=== PATIENT | male | born 1960 | race Caucasian/White ===

== ENCOUNTER 2018-02-03 09:59 | Emergency (ER) | payer OTHER ==
[~2018-02-03] VITALS: Ht 175.3 cm; Wt 79.4 kg
[~2018-02-03 09:59] MED LIST: IBUP600 PO
[2018-02-03] MEDS ORDERED: IBUP800 PO (10:41)
[2018-02-03] MEDS ORDERED: Zofran Odt4 MG SL (10:41)
[2018-02-03] MEDS ORDERED: Norco 5-325 Ta1 EACH PO (10:41)
== END 2018-02-03 11:34 | disposition home or self-care (01) ==
LOC: ER 09:59
DX: S83.015A Lateral dislocation of left patella, initial encounter (principal); W17.81XA Fall down embankment (hill), initial encounter; Y93.89 Activity, other specified; Y92.828 Other wilderness area as the place of occurrence of the external cause
CPT/HCPCS: 73562-LT; J2405; J3010

== ENCOUNTER 2018-11-30 04:22 | Inpatient (IN) | payer OTHER ==
[~2018-11-30] VITALS: Ht 175.3 cm; Wt 74.1 kg
[~2018-11-30 04:22] MED LIST changes: +IBUP800 PO; +Norco 5-325 Ta1 EACH PO; +Zofran Odt4 MG SL
[2018-11-30 04:47] LABS: Source, Urine Clean Catch
[2018-11-30 04:53] LABS: Bilirubin, Urine Neg (Neg); Blood, Urine Neg (Neg); Glucose Qualitative, Urine 1+ (Neg); Ketones, Urine 3+ (Neg); Leukocyte Esterase, Urine Neg (Neg); Nitrite, Urine Neg (Neg); Protein, Urine Neg (Neg); Urobilinogen, Urine NORM (Normal)
[2018-11-30 05:01] LABS: Appearance, Urine Clear (Clear); Color, Urine Yellow (P-Yellow)
[2018-11-30 05:21] LABS: BASOPHILS ABSOLUTE AUTO 0.07 K/mm3 (0.00-0.23); BASOPHILS PERCENT AUTO 1 % (0-2); EOSINOPHILS PERCENT AUTO 1 % (0-6); Hemoglobin 12.4 g/dL (13.5-17.5); IMMATURE GRAN ABSOLUTE AUTO 0.05 K/mm3 (0.00-0.10); IMMATURE GRAN PERCENT AUTO 0 % (0-1); LYMPHOCYTES ABSOLUTE AUTO 1.18 K/mm3 (0.84-5.20); LYMPHOCYTES PERCENT AUTO 8 % (21-46); MONOCYTES ABSOLUTE AUTO 0.95 K/mm3 (0.16-1.47); MONOCYTES PERCENT AUTO 7 % (4-13); Mean Corpuscular HGB Conc 34.4 g/dL (31.5-36.5); Mean Corpuscular Volume 99 fL (80-100); Mean Platelet Volume 9.5 fL (9.1-12.4); NEUTROPHILS ABSOLUTE AUTO 11.82 K/mm3 (1.96-9.15); NEUTROPHILS PERCENT AUTO 83 % (41-73); Platelet Count 299 K/mm3 (150-400); RDW Coefficient Variation 14.2 % (11.7-14.2); RDW Standard Deviation 51.8 fL (35.1-46.3); Red Blood Cell Count 3.65 M/mm3 (4.30-5.90); White Blood Cell Count 14.17 K/mm3 (4.00-11.30)
[2018-11-30 05:55] LABS: Alanine Aminotransfer (ALT/SGP 12 U/L (12-78); Albumin, Blood 3.8 g/dL (3.4-5.0); Alk Phos 66 U/L (50-136); Anion Gap 12 mmol/L (6-16); Aspartate Aminotrans (AST/SGOT 12 U/L (12-37); Bilirubin, Total 0.3 mg/dL (0.1-1.0); Blood Urea Nitrogen 7 mg/dL (8-24); Bun/Creatinine Ratio 14.6 (12.0-20.0); CO2, Blood 24 mmol/L (21-32); Calcium, Blood 8.8 mg/dL (8.5-10.1); Chloride, Blood 98 mmol/L (98-108); Creatinine, Blood 0.48 mg/dL (0.60-1.20); Ethanol (Alcohol), Blood, Med <3 mg/dL; Globulin, Blood 3.9 g/dL (2.2-4.0); Glomerular Filtration Rate >60 (60-); Glucose, Blood 168 mg/dL (70-99); Potassium, Blood 3.3 mmol/L (3.5-5.5); Sodium, Blood 134 mmol/L (136-145); Total Protein, Blood 7.7 g/dL (6.4-8.2); Troponin I <0.015 ng/mL (0.000-0.040)
--- NOTE | 2018-11-30 12:06 | NUR ---
1010 PT ADMITTED TO MEDICAL FLOOR VIA GURNEY, TRANSFERED INDEPENDENTLY TO BED WITHOUT ISSUE. PT REPORTS PAIN TO RUQ ABD 02/11, PAIN MANAGED WELL WITH MORPHINE 2.5MG IV. DENIES SOB, N/V. PT EDUCATED ON TX OF PANCREATITIS. CONT BIOX PLACED BY RT. NO NEW CHANGES.
--- NOTE | 2018-11-30 16:11 | NUR ---
SHIFT SUMMARY. A&OX4, SBA TO BATHROOM SECONDARY TO IV LINES AND NARCOTICS. PT IS AWARE OF LIMITATIONS AND CALLS APPROPRIATLY. PT C/O PAIN TO LUQ ABD, PAIN MANAGED WELL WITH MORPHINE 2.5MG IV TWICE SINCE ADMISSION. DENIES SOB, N/V. PT IS AWARE AND AGREES WITH CURRENT TREATMENT PLAN. NO NEW CHANGES.
--- NOTE | 2018-12-01 00:09 | NUR ---
PT BLOOD PRESSURE AT 1999 WAS 161/100. pT WAS GIVEN HIS METROPOLOL AND 10 MG HYDRAZALINE. Blood pressure at 0 was 137/84 with a pulse of 86. Pt also given 5 mg morphine for severe avdominal pain with some relief.
--- NOTE | 2018-12-01 04:39 | NUR ---
Shift summary: Pt having a lot of abdominal pain secondary to pancreatitis. Pt NPO. Pt given 5 mg morphine q 4 hours during the night with only moderate relief. Pt c/o nausea this am- pt given 4 mg zofran with good relief. Pt now appears to be resting comfortably. Blood pressure at midnight was 137/84 after getting morphine, lopressor and hydrazaline. Blood pressure this am was 160/90 but pt was also in pain.
[2018-12-01 05:37] LABS: BASOPHILS ABSOLUTE AUTO 0.04 K/mm3 (0.00-0.23); BASOPHILS PERCENT AUTO 0 % (0-2); EOSINOPHILS ABSOLUTE AUTO 0.06 K/mm3 (0.00-0.68); EOSINOPHILS PERCENT AUTO 1 % (0-6); Hematocrit 38.4 % (37.0-53.0); Hemoglobin 13.1 g/dL (13.5-17.5); IMMATURE GRAN ABSOLUTE AUTO 0.05 K/mm3 (0.00-0.10); IMMATURE GRAN PERCENT AUTO 0 % (0-1); LYMPHOCYTES ABSOLUTE AUTO 1.08 K/mm3 (0.84-5.20); LYMPHOCYTES PERCENT AUTO 9 % (21-46); MONOCYTES ABSOLUTE AUTO 1.23 K/mm3 (0.16-1.47); MONOCYTES PERCENT AUTO 11 % (4-13); Mean Corpuscular HGB 34.6 pg (26.0-34.0); Mean Corpuscular HGB Conc 34.1 g/dL (31.5-36.5); Mean Corpuscular Volume 101 fL (80-100); Mean Platelet Volume 9.8 fL (9.1-12.4); NEUTROPHILS ABSOLUTE AUTO 9.04 K/mm3 (1.96-9.15); NEUTROPHILS PERCENT AUTO 79 % (41-73); Platelet Count 265 K/mm3 (150-400); RDW Coefficient Variation 14.7 % (11.7-14.2); RDW Standard Deviation 54.8 fL (35.1-46.3); Red Blood Cell Count 3.79 M/mm3 (4.30-5.90)
[2018-12-01 06:08] LABS: Magnesium, Blood 2.3 mg/dL (1.6-2.4)
[2018-12-01 06:13] LABS: Alanine Aminotransfer (ALT/SGP 16 U/L (12-78); Albumin, Blood 3.5 g/dL (3.4-5.0); Albumin/Globulin Ratio 0.9 (0.8-1.8); Alk Phos 69 U/L (50-136); Anion Gap 8 mmol/L (6-16); Aspartate Aminotrans (AST/SGOT 13 U/L (12-37); Bilirubin, Total 0.5 mg/dL (0.1-1.0); Blood Urea Nitrogen 4 mg/dL (8-24); Bun/Creatinine Ratio 8.6 (12.0-20.0); CO2, Blood 22 mmol/L (21-32); Calcium, Blood 8.7 mg/dL (8.5-10.1); Chloride, Blood 106 mmol/L (98-108); Creatinine, Blood 0.47 mg/dL (0.60-1.20); Globulin, Blood 3.8 g/dL (2.2-4.0); Glomerular Filtration Rate >60 (60-); Glucose, Blood 103 mg/dL (70-99); Potassium, Blood 3.9 mmol/L (3.5-5.5); Sodium, Blood 136 mmol/L (136-145); Total Protein, Blood 7.3 g/dL (6.4-8.2)
--- NOTE | 2018-12-01 13:17 | NUR ---
PT IS ALERT AND ORIENTED AND COOPERATIVE WITH CARE. HE HAS COMPLAINED TWICE OF ABDOMINAL PAIN 7/, TREATED PER EMAR. PATIENT RECIEVED A SHOWER THIS MORNING. WILL CONTINUE TO MONITOR.
--- NOTE | 2018-12-01 18:16 | NUR ---
THE PATIENT GOT THE OKAY FROM DR. THOMAS TO EAT ICE CHIPS. HE HAS NORMAL SALINE RUNNING AT 150 ML/HR. HE HAS BEEN USING THE URINAL IN BED. NO COMPLAINTS OF NAUSEA THIS AFTERNOON. HE WAS ORDERED DILAUDID 1MG Q3H PRN FOR PAIN. NO ACUTE CHANGES, WILL CONTINUE TO MONITOR.
--- NOTE | 2018-12-02 04:27 | NUR ---
SUMMARY: NO ACUTE CHANGE TONIGHT. VSS. PT TOLERATING ICE CHIPS, HAS DENIED, N/V. REPORTS 6/10 PAIN CONSISTANTLY. 0.5-1MG DILAUDID GIVEN PRN. PT USING CALL LIGHT NO SAFETY ISSUES AT THIS TIME. WILL REPORT TO DAY RN
[2018-12-02 05:13] LABS: BASOPHILS ABSOLUTE AUTO 0.05 K/mm3 (0.00-0.23); BASOPHILS PERCENT AUTO 1 % (0-2); EOSINOPHILS ABSOLUTE AUTO 0.15 K/mm3 (0.00-0.68); EOSINOPHILS PERCENT AUTO 2 % (0-6); Hematocrit 33.3 % (37.0-53.0); Hemoglobin 11.2 g/dL (13.5-17.5); IMMATURE GRAN ABSOLUTE AUTO 0.02 K/mm3 (0.00-0.10); IMMATURE GRAN PERCENT AUTO 0 % (0-1); LYMPHOCYTES ABSOLUTE AUTO 1.18 K/mm3 (0.84-5.20); LYMPHOCYTES PERCENT AUTO 13 % (21-46); MONOCYTES PERCENT AUTO 13 % (4-13); Mean Corpuscular HGB 34.3 pg (26.0-34.0); Mean Corpuscular HGB Conc 33.6 g/dL (31.5-36.5); Mean Corpuscular Volume 102 fL (80-100); Mean Platelet Volume 10.1 fL (9.1-12.4); NEUTROPHILS ABSOLUTE AUTO 6.48 K/mm3 (1.96-9.15); NEUTROPHILS PERCENT AUTO 71 % (41-73); Platelet Count 213 K/mm3 (150-400); RDW Coefficient Variation 14.6 % (11.7-14.2); RDW Standard Deviation 54.6 fL (35.1-46.3); Red Blood Cell Count 3.27 M/mm3 (4.30-5.90); White Blood Cell Count 9.08 K/mm3 (4.00-11.30)
[2018-12-02 05:53] LABS: Alanine Aminotransfer (ALT/SGP 8 U/L (12-78); Albumin, Blood 2.8 g/dL (3.4-5.0); Albumin/Globulin Ratio 0.7 (0.8-1.8); Alk Phos 57 U/L (50-136); Anion Gap 6 mmol/L (6-16); Aspartate Aminotrans (AST/SGOT 7 U/L (12-37); Bilirubin, Total 0.4 mg/dL (0.1-1.0); Blood Urea Nitrogen 6 mg/dL (8-24); Bun/Creatinine Ratio 10.4 (12.0-20.0); CO2, Blood 25 mmol/L (21-32); Calcium, Blood 8.3 mg/dL (8.5-10.1); Chloride, Blood 107 mmol/L (98-108); Creatinine, Blood 0.58 mg/dL (0.60-1.20); Globulin, Blood 3.8 g/dL (2.2-4.0); Glomerular Filtration Rate >60 (60-); Glucose, Blood 86 mg/dL (70-99); Potassium, Blood 3.7 mmol/L (3.5-5.5); Sodium, Blood 138 mmol/L (136-145); Total Protein, Blood 6.6 g/dL (6.4-8.2)
--- NOTE | 2018-12-02 17:52 | NUR ---
HE HAS TAKEN DILAUDID 0.5 MG X3 TODAY FOR ABD PAIN. NO NAUSEA. HE HAS HAD SMALL AMT OF ICE CHIPS. HE HAS WALKED OUTSIDE X2 FOR A CIGARETTE TODAY. IT DID NOT MAKE HIM MORE PAINFUL OR NAUSEATE HIM. VSS. HE IS VERY PLEASANT AND TALKATIVE. HE UNDERSTANDS HE WILL HAVE ANOTHER CT SCAN TOMORROW.
--- NOTE | 2018-12-03 03:05 | NUR ---
PT BEGAN ORAL CONTRAST AT 0300 PER RADIOLOGIST INSTRUCTIONS AT [address] W/CONTRAST. PT AWARE TO DRINK NEXT AMOUNT AT 0430 AND WILL COMPLETE SOLUTION BY 0630 SCAN.
--- NOTE | 2018-12-03 04:48 | NUR ---
SUMMARY: A/OX4, INDEPENDENT AND SPECIFIES NEEDS. PT DENIED COMPLAINTS OTHER THEN ABDO PAIN. DILUADID 0.5MG IV PRN RECIEVED X3 DOSES FOR TOLERABLE CONTROL BUT PT STATES PAIN NEVER GOES AWAY ENTIRELY. HE DENIES NAUSEA AND IS DRINKING ORAL CONTRAST PER RADIOLOGY INSTRUCTION FOR AM ABDO CT W/CONTRAST. HE'S BEEN NPO EXCEPT ICE AND TOLERATING WELL W/CLINIMIX INFUSING. NO ACUTE CHANGES, VSS AND AFEBRILE. WILL MONITOR AND REPORT TO DAY RN.
[2018-12-03 05:01] LABS: BASOPHILS ABSOLUTE AUTO 0.05 K/mm3 (0.00-0.23); BASOPHILS PERCENT AUTO 1 % (0-2); EOSINOPHILS ABSOLUTE AUTO 0.13 K/mm3 (0.00-0.68); EOSINOPHILS PERCENT AUTO 2 % (0-6); Hematocrit 30.9 % (37.0-53.0); Hemoglobin 10.4 g/dL (13.5-17.5); IMMATURE GRAN ABSOLUTE AUTO 0.01 K/mm3 (0.00-0.10); IMMATURE GRAN PERCENT AUTO 0 % (0-1); LYMPHOCYTES ABSOLUTE AUTO 1.26 K/mm3 (0.84-5.20); LYMPHOCYTES PERCENT AUTO 18 % (21-46); MONOCYTES ABSOLUTE AUTO 0.93 K/mm3 (0.16-1.47); MONOCYTES PERCENT AUTO 13 % (4-13); Mean Corpuscular HGB 34.9 pg (26.0-34.0); Mean Corpuscular HGB Conc 33.7 g/dL (31.5-36.5); Mean Corpuscular Volume 104 fL (80-100); NEUTROPHILS ABSOLUTE AUTO 4.81 K/mm3 (1.96-9.15); NEUTROPHILS PERCENT AUTO 67 % (41-73); Platelet Count 187 K/mm3 (150-400); RDW Coefficient Variation 14.2 % (11.7-14.2); RDW Standard Deviation 54.2 fL (35.1-46.3); Red Blood Cell Count 2.98 M/mm3 (4.30-5.90); White Blood Cell Count 7.19 K/mm3 (4.00-11.30)
[2018-12-03 05:28] LABS: Alanine Aminotransfer (ALT/SGP 8 U/L (12-78); Albumin, Blood 2.7 g/dL (3.4-5.0); Albumin/Globulin Ratio 0.7 (0.8-1.8); Alk Phos 56 U/L (50-136); Anion Gap 7 mmol/L (6-16); Aspartate Aminotrans (AST/SGOT 8 U/L (12-37); Bilirubin, Total 0.4 mg/dL (0.1-1.0); Blood Urea Nitrogen 8 mg/dL (8-24); Bun/Creatinine Ratio 14.3 (12.0-20.0); CO2, Blood 26 mmol/L (21-32); Calcium, Blood 8.4 mg/dL (8.5-10.1); Chloride, Blood 103 mmol/L (98-108); Creatinine, Blood 0.56 mg/dL (0.60-1.20); Globulin, Blood 3.7 g/dL (2.2-4.0); Glomerular Filtration Rate >60 (60-); Glucose, Blood 98 mg/dL (70-99); Potassium, Blood 3.6 mmol/L (3.5-5.5); Sodium, Blood 136 mmol/L (136-145); Total Protein, Blood 6.4 g/dL (6.4-8.2)
--- NOTE | 2018-12-03 18:23 | NUR ---
PATIENT IS A/O AND INDEPENDENT IN THE ROOM . HE GOES OUT TO SMOKE 2X A SHIFT. HE IS PLEASANT AND COOPERATIVE WITH ALL CARES. SINCE PAIN MEDS HAVE BEEN SWITCHED HE HAS NOT REQUESTED MUCH PAIN RELIEF. IV DC AND REMOVED. PATIENT HAS TOLERATED FOOD WELL THIS SHIFT SINCE BEING TAKEN OFF NPO STATUS.
--- NOTE | 2018-12-04 04:00 | NUR ---
PT C/O MILD BUT NAGGING NAUSEA BUT NO IV ACCESS SO RX'D ZOFRAN PO. MED RECIEVED AND PT REPORTED EXCELLENT RELIEF.
--- NOTE | 2018-12-04 05:15 | NUR ---
SUMMARY: A/OX4, INDEPENDENT AND SPECIFIES NEEDS. HE CONT'S TO HAVE ABDO PAIN W/PERCOCET 1 TAB X2 DOSES RECIEVED FOR 4/10 PAIN CONTROL WHICH PT REPORTS IS "TOLERABLE AND GOOD IT GETS". HE'S BEEN TOLERATING HIS REGULAR DIET BUT DID REPORT MILD NAGGING NAUSEA THIS AM. PO ZOFRAN RECIEVED FOR GOOD EFFECT AND PROTONIX WAS GIVEN EARLY PER PT REQUEST. VSS/AFEBRILE AND NO ACUTE CHANGES. HE IS PLEASANT AND COOPERATIVE W/CARE AND HOPING TO GO HOME TODAY, POSSIBLE D/C PENDING. WILL MONITOR AND REPORT TO DAY RN.
[2018-12-04 05:50] LABS: Magnesium, Blood 2.3 mg/dL (1.6-2.4)
[2018-12-04 05:53] LABS: Anion Gap 9 mmol/L (6-16); Blood Urea Nitrogen 8 mg/dL (8-24); CO2, Blood 25 mmol/L (21-32); Calcium, Blood 8.4 mg/dL (8.5-10.1); Chloride, Blood 104 mmol/L (98-108); Creatinine, Blood 0.57 mg/dL (0.60-1.20); Glomerular Filtration Rate >60 (60-); Glucose, Blood 96 mg/dL (70-99); Potassium, Blood 3.7 mmol/L (3.5-5.5); Sodium, Blood 138 mmol/L (136-145)
--- NOTE | 2018-12-04 06:01 | NUR ---
LIPASE CONT'S TRENDING DOWNWARD, NOW 511.
[2018-12-04] MEDS ORDERED: Percocet 5-3251 EACH PO (11:19)
[2018-12-04] MEDS ORDERED: Lopressor 25 mg25 MG PO (11:19)
[2018-12-04] MEDS ORDERED: ONDA4 PO ×2 (11:30→11:31)
--- NOTE | 2018-12-04 11:48 | NUR ---
PT DISCHARGED TO HOME PER AT 1130. SCRIPTS SENT TO [facility] TO FOLLOW UP WITH [facility].
== END 2018-12-04 11:35 | disposition home or self-care (01) | DRG 439 ==
LOC: ER 04:22 → MEDS 09:02 → ENPENDDIS 12-04 11:00 → MEDS 12-04 11:35
PROVIDERS: Emergency Medicine; Hospitalist; ADMIT Internal Medicine
DX: K85.90 Acute pancreatitis without necrosis or infection, unspecified (principal); K86.3 Pseudocyst of pancreas; K85.20 Alcohol induced acute pancreatitis without necrosis or infection; K86.0 Alcohol-induced chronic pancreatitis; F10.20 Alcohol dependence, uncomplicated; E87.6 Hypokalemia; F17.210 Nicotine dependence, cigarettes, uncomplicated
CPT/HCPCS: 36415; 74177; 80048; 80053; 81003; 83690; 83735; 84484; 85025; 85651; 93005; 93010; 94762; 96361; 96374-59; 96375; 96376; 99285-25; C9113; G0480; J0360; J0696; J1170; J2060; J2270; J2405; J3010; J3475; J7030; J7042; Q9967

== ENCOUNTER 2018-12-12 14:32 | Emergency (ER) | payer OTHER ==
[~2018-12-12] VITALS: Ht 172.7 cm; Wt 77.1 kg
[~2018-12-12 14:32] MED LIST changes: +Lopressor 25 mg25 MG PO; +ONDA4 PO; +Percocet 5-3251 EACH PO
[2018-12-12 15:19] LABS: BASOPHILS ABSOLUTE AUTO 0.05 K/mm3 (0.00-0.23); BASOPHILS PERCENT AUTO 0 % (0-2); EOSINOPHILS ABSOLUTE AUTO 0.11 K/mm3 (0.00-0.68); EOSINOPHILS PERCENT AUTO 1 % (0-6); Hematocrit 26.6 % (37.0-53.0); Hemoglobin 8.9 g/dL (13.5-17.5); IMMATURE GRAN ABSOLUTE AUTO 0.29 K/mm3 (0.00-0.10); IMMATURE GRAN PERCENT AUTO 2 % (0-1); LYMPHOCYTES ABSOLUTE AUTO 2.25 K/mm3 (0.84-5.20); LYMPHOCYTES PERCENT AUTO 12 % (21-46); MONOCYTES PERCENT AUTO 6 % (4-13); Mean Corpuscular HGB 34.4 pg (26.0-34.0); Mean Corpuscular HGB Conc 33.5 g/dL (31.5-36.5); Mean Corpuscular Volume 103 fL (80-100); Mean Platelet Volume 9.8 fL (9.1-12.4); NEUTROPHILS ABSOLUTE AUTO 15.52 K/mm3 (1.96-9.15); NEUTROPHILS PERCENT AUTO 80 % (41-73); Platelet Count 628 K/mm3 (150-400); RDW Coefficient Variation 14.7 % (11.7-14.2); RDW Standard Deviation 55.8 fL (35.1-46.3); Red Blood Cell Count 2.59 M/mm3 (4.30-5.90); White Blood Cell Count 19.42 K/mm3 (4.00-11.30)
[2018-12-12 15:44] LABS: Alanine Aminotransfer (ALT/SGP 9 U/L (12-78); Albumin, Blood 2.4 g/dL (3.4-5.0); Albumin/Globulin Ratio 0.6 (0.8-1.8); Alk Phos 77 U/L (50-136); Anion Gap 12 mmol/L (6-16); Aspartate Aminotrans (AST/SGOT 4 U/L (12-37); Bilirubin, Total 0.5 mg/dL (0.1-1.0); Blood Urea Nitrogen 9 mg/dL (8-24); Bun/Creatinine Ratio 14.7 (12.0-20.0); CO2, Blood 22 mmol/L (21-32); Calcium, Blood 8.1 mg/dL (8.5-10.1); Chloride, Blood 100 mmol/L (98-108); Creatinine, Blood 0.61 mg/dL (0.60-1.20); Globulin, Blood 3.8 g/dL (2.2-4.0); Glomerular Filtration Rate >60 (60-); Glucose, Blood 121 mg/dL (70-99); Potassium, Blood 3.9 mmol/L (3.5-5.5); Sodium, Blood 134 mmol/L (136-145); Total Protein, Blood 6.2 g/dL (6.4-8.2)
[2018-12-12 18:00] LABS: International Normalized Ratio 1.01; Prothrombin Time Results 10.7 Sec (9.7-11.5)
== END 2018-12-12 18:05 | disposition short-term general hospital (02) ==
LOC: ER 14:32
PROVIDERS: Emergency Medicine
DX: D73.5 Infarction of spleen (principal); K85.90 Acute pancreatitis without necrosis or infection, unspecified; D64.9 Anemia, unspecified; I10 Essential (primary) hypertension; F17.200 Nicotine dependence, unspecified, uncomplicated
CPT/HCPCS: 36415; 36430; 74177; 80053; 83605; 83690; 84484; 85025; 85610; 86850; 86900; 86901; 86923; 93005; 93010; 96361-59; 96365-59; 96375-59; 96376-59; 99285-25; J1170; J2405; J3010; J7030; J7040; P9016; P9035; P9059; Q9967

== ENCOUNTER 2019-09-03 21:01 | Inpatient (IN) | payer OTHER ==
[~2019-09-03] VITALS: Ht 175.3 cm; Wt 72.8 kg
[2019-09-03 21:55] LABS: Calcium, Ionized (POC) 0.97 mmol/L (1.10-1.46); Chloride (POC) 102 mmol/L (98-108); Creatinine (POC) 1.3 mg/dL (0.8-1.3); Glucose (ISTAT POC) 99 mg/dL (70-99); Hemoglobin (POC) 15.3 g/dL (13.5-17.5); Potassium (POC) 4.3 mmol/L (3.5-5.5); Sodium (POC) 138 mmol/L (135-148); Total CO2 (POC) 24 mmol/L (21-32)
[2019-09-03 22:03] LABS: BASOPHILS ABSOLUTE AUTO 0.08 K/mm3 (0.00-0.23); BASOPHILS PERCENT AUTO 1 % (0-2); EOSINOPHILS ABSOLUTE AUTO 0.13 K/mm3 (0.00-0.68); EOSINOPHILS PERCENT AUTO 2 % (0-6); Hematocrit 40.8 % (37.0-53.0); Hemoglobin 13.8 g/dL (13.5-17.5); IMMATURE GRAN ABSOLUTE AUTO 0.03 K/mm3 (0.00-0.10); IMMATURE GRAN PERCENT AUTO 0 % (0-1); LYMPHOCYTES ABSOLUTE AUTO 4.64 K/mm3 (0.84-5.20); LYMPHOCYTES PERCENT AUTO 52 % (21-46); MONOCYTES ABSOLUTE AUTO 0.57 K/mm3 (0.16-1.47); MONOCYTES PERCENT AUTO 6 % (4-13); Mean Corpuscular HGB 34.4 pg (26.0-34.0); Mean Corpuscular HGB Conc 33.8 g/dL (31.5-36.5); Mean Corpuscular Volume 102 fL (80-100); Mean Platelet Volume 9.1 fL (9.1-12.4); NEUTROPHILS ABSOLUTE AUTO 3.51 K/mm3 (1.96-9.15); NEUTROPHILS PERCENT AUTO 39 % (41-73); Platelet Count 470 K/mm3 (150-400); RDW Coefficient Variation 14.2 % (11.7-14.2); RDW Standard Deviation 53.5 fL (35.1-46.3); Red Blood Cell Count 4.01 M/mm3 (4.30-5.90); White Blood Cell Count 8.96 K/mm3 (4.00-11.30)
[2019-09-03 22:30] LABS: Alanine Aminotransfer (ALT/SGP 19 U/L (12-78); Albumin, Blood 3.7 g/dL (3.4-5.0); Alk Phos 72 U/L (50-136); Anion Gap 12 mmol/L (6-16); Aspartate Aminotrans (AST/SGOT 14 U/L (12-37); Bilirubin, Total 0.1 mg/dL (0.1-1.0); Blood Urea Nitrogen 5 mg/dL (8-24); Bun/Creatinine Ratio 8.3 (12.0-20.0); CO2, Blood 22 mmol/L (21-32); Chloride, Blood 106 mmol/L (98-108); Globulin, Blood 3.6 g/dL (2.2-4.0); Glomerular Filtration Rate >60 (60-); Glucose, Blood 95 mg/dL (70-99); Potassium, Blood 4.3 mmol/L (3.5-5.5); Sodium, Blood 140 mmol/L (136-145); Total Protein, Blood 7.3 g/dL (6.4-8.2); Troponin I <0.015 ng/mL (0.000-0.040)
[2019-09-03 22:35] LABS: Ethanol (Alcohol), Blood, Med 518 mg/dL
[2019-09-03 22:36] LABS: Acetaminophen, Random <2.0 ug/mL (10.0-30.0)
[2019-09-03 22:40] LABS: U Amphetamine Screen Not Detected; U Barbituate Screen Not Detected; U Benzodiazapine Screen Not Detected; U Buprenorphine Screen Not Detected; U Cannabinoids Screen DETECTED; U Cocaine Screen Not Detected; U Methadone Screen Not Detected; U Methamphetamine Screen Not Detected; U Opiates Screen Not Detected; U Oxycodone Screen Not Detected; U Phencyclidine Screen Not Detected; U Propoxyphene Screen Not Detected
[2019-09-03 23:30] LABS: Magnesium, Blood 2.2 mg/dL (1.6-2.4); Phosphorus, Blood 4.1 mg/dL (2.5-4.9)
[2019-09-03 23:42] LABS: PCO2 Arterial 47.6 mmHg (35-45); PO2 Arterial 75.6 mmHg (80-100)
[2019-09-03 23:43] LABS: pH Blood Arterial 7.26 (7.35-7.45)
--- NOTE | 2019-09-04 02:30 | NUR ---
PT TO ICU ROOM 8 FROM ED AT 2345. PT ARRIVES VENTILATED, SEDATED ON PROPFOL AND RECEIVING NS BOLUS. PT IS UNRESPONSIVE TO VERBAL OR PAINFUL STIMULI, COUGH PRESENT, NO GAG, PINPOINT UNRESPONSIVE PUPILS, AND HYPOTHERMIC WITH TEMP OF 95.4. MICHELA HUGGER PLACED ON PT UPON ARRIVAL TO INCREASE TEMP, PT HAS TEMP VIGIL TO MONITOR CORE TEMPERATURE. VENT SETTINGS AC 14/500/5/30%. OGT TO LIS, SMALL AMOUNT OF CLEAR FLUID SUCTIONED FROM OGT. PRECEDEX STARTED FOR SEDATION PT WAS BECOMING HYPOTENSIVE ON PROPOFOL. PT CONTINUES TO BE HYPOTENSIVE, ALL SEDATION PLACED ON STANDBY. CALL PLACED TO DR. RODRIGUEZ REGARDING PT'S CONTINUED HYPOTENSION DESPITE FLUID BOLUS, ORDER TO INFUSE ADDITIONAL 2L FLUID BOLUS. SEE FULL ADMISSION ASSESSMENT
[2019-09-04 03:31] LABS: Base Excess Venous -7.4 mmol/L; Bicarbonate Venous 18.9 mmol/L (24.0-30.0); PCO2 Venous 37.7 mmHg (38-42); PO2 Venous 132 mmHg (38-42); pH Blood Venous 7.31 (7.34-7.37)
--- NOTE | 2019-09-04 03:35 | NUR ---
PT RESPONDING TO FLUID BOLUS WITH IMPROVING BLOOD PRESSURES. PT TURNS HEAD TO SOUND AND FROWNS IN RESPONSE TO SUCTIONING AND STERNAL RUB. PT STILL FAILS TO FOLLOW COMMANDS. PRECEDEX RESTARTED AT 0.2 MCG/KG/HR D/T PT AGITATION. WILL CONTINUE TO CLOSELY MONITOR BLOOD PRESSURE RESPONSE TO PRECEDEX.
[2019-09-04 04:11] LABS: BASOPHILS ABSOLUTE AUTO 0.06 K/mm3 (0.00-0.23); BASOPHILS PERCENT AUTO 1 % (0-2); EOSINOPHILS ABSOLUTE AUTO 0.01 K/mm3 (0.00-0.68); EOSINOPHILS PERCENT AUTO 0 % (0-6); Hematocrit 33.5 % (37.0-53.0); Hemoglobin 10.8 g/dL (13.5-17.5); IMMATURE GRAN ABSOLUTE AUTO 0.04 K/mm3 (0.00-0.10); IMMATURE GRAN PERCENT AUTO 1 % (0-1); LYMPHOCYTES ABSOLUTE AUTO 3.14 K/mm3 (0.84-5.20); LYMPHOCYTES PERCENT AUTO 38 % (21-46); MONOCYTES ABSOLUTE AUTO 0.44 K/mm3 (0.16-1.47); MONOCYTES PERCENT AUTO 5 % (4-13); Mean Corpuscular HGB 33.8 pg (26.0-34.0); Mean Corpuscular HGB Conc 32.2 g/dL (31.5-36.5); Mean Platelet Volume 9.2 fL (9.1-12.4); NEUTROPHILS ABSOLUTE AUTO 4.51 K/mm3 (1.96-9.15); NEUTROPHILS PERCENT AUTO 55 % (41-73); Platelet Count 391 K/mm3 (150-400); RDW Coefficient Variation 14.6 % (11.7-14.2); RDW Standard Deviation 56.4 fL (35.1-46.3)
[2019-09-04 04:33] LABS: Mean Corpuscular Volume 105 fL (80-100)
--- NOTE | 2019-09-04 06:44 | NUR ---
SHIFT SUMMARY PT REMAINS INTUBATED WITH VENT SETTINGS AC 14/500/5/25%. PT RECEIVED TOTAL OF 5L NS BOLUS TO IMPROVE HYPOTENSION. PT MUCH MORE ALERT, TURNS HEAD TO SOUND, SQUEEZES HAND, AND TRIES TO MOUTH WORDS. PT INCREASINGLY AGITATED AND THRASHES HEAD BACK AND FORTH TRYING TO SELF-EXTUBATE. PT PULLS AGGRESSIVELY ON RESTRAINTS AND KICKS LEGS. CONTINUED ATTEMPTS TO SEDATE PT RESULT IN HYPOTENSION. PROPOFOL CURRENTLY INFUSING AT 10 MCG/KG/MIN AND PRECEDEX @0.4 MCG/KG/HR. 1200 ML CLEAR YELLOW URINARY OUTPUT. PT TEMP REGULATED, CURRENTLY 97.4, MICHELA HUGGER REMAINS OFF. PLEASE SEE PREVIOUS NOTES FROM THIS SHIFT. WILL REPORT TO DAYSHIFT NURSE
--- NOTE | 2019-09-04 07:20 | NUR ---
ASSUMED CARE AT 0700. REPORT FROM EUGENIA SHETTY. PT INTUBATED, DR RODRIGUEZ AT BEDSIDE. VENT SETTINGS CHANGED TO SPONTANEOUS 5/5 25%. PT OPENS EYES SPONTANEOUSLY, FOLLOWS DIRECTIONS. INTERMITTANTLY THRASHING HEAD BACK AND FORTH, ABLE TO REDIRECT. GAG, SWALLOW AND COUGH PRESENT. IVF INFUSING. PROPOFOL AND PRECEDEX ON STANDBY D/T HYPOTENSION. LUNGS CLEAR. OGT TO LOWER INTERMITTANT SUCTIONS, CLEAR EMESIS IN CANISTER. TEMP PROBE VIGIL PATENT AND DRAINING CLEAR YELLOW URINE. WILL CONTINUE TO MONITOR.
--- NOTE | 2019-09-04 09:16 | NUR ---
PT DOING WELL ON SPONT MD FEELS IT WOULD BE GOOD TO EXTUBATE, PT AWAKE AND FOLLOWED COMMANDS, PT HEAVILY SX ORALLY AND ETT, PT EXTUBATED AT 0912 WITHOUT ISSUE, PLACED ON 2L FOR NOW TO BE TITRATED OFF.
--- NOTE | 2019-09-04 09:18 | NUR ---
ORDER OBTAINED FOR EXTUBATION. PT FOLLOWING DIRECTIONS, COUGH, GAG AND SWALLOW PRESENT. RT AT BEDSIDE. EXTUBATED AT 0912. PLACED ON 2L O2 VIA NC. PT CALM AND COOPERATIVE. RESTRAINTS REMOVED. PT STATES HE IS A DAILY DRINKER. WILL CONTINUE TO MONITOR.
--- NOTE | 2019-09-04 10:20 | NUR ---
PT BECOMING RESTLESS AND AGGITATED IN ROOM. ATTEMPTED MULTIPLE TIMES TO REDIRECT. ENCOURAGED PT TO STAY FOR A FEW MORE HOURS UNTIL ETOH WORE OFF. PT REFUSING. PULLING AT LINES. CHARGE NURSE AND DR TENORIO NOTIFIED. CALL PLACED TO SO AT HOME FOR POSSIBLE RIDE HOME. LEFT MESSAGE. PT ABLE TO STAND AT BEDSIDE. STAGGERED GAIT. DRESSES SELF. PO FLUIDS GIVEN, NO DIFFICULTIES SWALLOWING. MONITOR AND IV'S REMOVED. PRESSURE DRESSINGS APPLIED. VIGIL CATH D/C'D.
--- NOTE | 2019-09-04 10:40 | NUR ---
DR TENORIO AT BEDSIDE FOR DISCHARGE. PT REFUSING TO WAIT FOR D/C INSTRUCTIONS. CALL PLACED FOR [facility]. ASSISTED TO CAB. ALL BELONGINGS c PT. PT CONCERNED ABOUT EYE GLASSES AND $100 BILL. EDUCATED PT THAT ALL BELONGINGS WERE SENT TO ICU FROM ER. GAVE PT NUMBER FOR [facility] IF HE IS UNABLE TO FIND BELONGINGS AT HOME.
== END 2019-09-04 10:42 | disposition home or self-care (01) | DRG 896 ==
LOC: ER 21:01 → ICUW 23:06 → ICUE 23:06
PROVIDERS: Emergency Medicine; Internal Medicine Pulmonary Disease; Nurse Practitioner Acute Care; ADMIT Family Medicine
PROC: 0BH17EZ Insertion of Endotracheal Airway into Trachea, Via Natural or Artificial Opening (ICD-10-PCS; principal; 2019-09-03)
DX: F10.129 Alcohol abuse with intoxication, unspecified (principal); G92 Toxic encephalopathy; J96.01 Acute respiratory failure with hypoxia; J96.02 Acute respiratory failure with hypercapnia; Y90.8 Blood alcohol level of 240 mg/100 ml or more; F17.210 Nicotine dependence, cigarettes, uncomplicated
CPT/HCPCS: 31500; 31720; 36415; 36600; 51702; 70450; 71045; 80047; 80053; 82803; 83735; 84100; 84484; 85014; 85025; 90686; 93005; 93010; 94002; 94003; 94640; 96361-59; 96374-59; 96375-59; 99291-25; 99292; C9113; G0008; G0480; J0330; J1650; J2060; J2310; J2704; J3010; J3411; J3475; J7030; J7042

== ENCOUNTER 2022-08-16 15:07 | Emergency (ER) | payer OTHER ==
[~2022-08-16] VITALS: Ht 170.2 cm; Wt 68.0 kg
[2022-08-16 16:11] LABS: BASOPHILS ABSOLUTE AUTO 0.04 K/mm3 (0.00-0.23); BASOPHILS PERCENT AUTO 0 % (0-2); EOSINOPHILS ABSOLUTE AUTO 0.03 K/mm3 (0.00-0.68); EOSINOPHILS PERCENT AUTO 0 % (0-6); Hematocrit 35.2 % (37.0-53.0); IMMATURE GRAN ABSOLUTE AUTO 0.09 K/mm3 (0.00-0.10); IMMATURE GRAN PERCENT AUTO 1 % (0-1); LYMPHOCYTES ABSOLUTE AUTO 1.45 K/mm3 (0.84-5.20); LYMPHOCYTES PERCENT AUTO 8 % (21-46); MONOCYTES ABSOLUTE AUTO 1.82 K/mm3 (0.16-1.47); MONOCYTES PERCENT AUTO 9 % (4-13); Mean Corpuscular HGB 36.6 pg (26.0-34.0); Mean Corpuscular HGB Conc 36.9 g/dL (31.5-36.5); Mean Corpuscular Volume 99 fL (80-100); Mean Platelet Volume 10.2 fL (9.1-12.4); NEUTROPHILS ABSOLUTE AUTO 15.87 K/mm3 (1.96-9.15); NEUTROPHILS PERCENT AUTO 82 % (41-73); Platelet Count 349 K/mm3 (150-400); RDW Coefficient Variation 12.1 % (11.7-14.2); RDW Standard Deviation 44.7 fL (35.1-46.3); Red Blood Cell Count 3.55 M/mm3 (4.30-5.90)
[2022-08-16 16:41] LABS: Albumin, Blood 3.3 g/dL (3.4-5.0); Albumin/Globulin Ratio 0.8 (0.8-1.8); Bilirubin, Total 0.6 mg/dL (0.1-1.0); Calcium, Blood 8.8 mg/dL (8.5-10.1); Creatinine, Blood 0.5 mg/dL (0.60-1.20); Globulin, Blood 4.2 g/dL (2.2-4.0); Potassium, Blood 3.7 mmol/L (3.5-5.5); Total Protein, Blood 7.5 g/dL (6.4-8.2)
[2022-08-16 17:25] LABS: Source, Urine Clean Catch
[2022-08-16 17:36] LABS: Appearance, Urine Clear (Clear); Bilirubin, Urine Neg (Neg); Blood, Urine 2+ (Neg); Color, Urine Yellow (P-Yellow); Glucose Qualitative, Urine Neg (Neg); Ketones, Urine 4+ (Neg); Leukocyte Esterase, Urine Neg (Neg); Nitrite, Urine Neg (Neg); Protein, Urine 2+ (Neg); Urobilinogen, Urine NORM (Normal)
[2022-08-16 17:50] LABS: Bacteria Few /hpf; Squamous Epithelial Cells Few /hpf (Few); White Blood Cells, Urine 0-2 /hpf (0-5)
== END 2022-08-16 20:18 | disposition home or self-care (01) ==
LOC: ER 15:07
PROVIDERS: Emergency Medicine
DX: K85.20 Alcohol induced acute pancreatitis without necrosis or infection (principal); E86.1 Hypovolemia; I10 Essential (primary) hypertension; F17.210 Nicotine dependence, cigarettes, uncomplicated
CPT/HCPCS: 74177; 80053; 81001; 83690; 84484; 85025; 93005; 93010; 96374-59; 96375; 96376; 99285-25; A9270; J2270; J2405; J7030; Q9967

== ENCOUNTER 2023-07-02 06:35 | Observation (INO) | payer OTHER ==
[~2023-07-02] VITALS: Ht 170.2 cm; Wt 63.5 kg
[2023-07-02] VITALS (14 sets, daily range): BP systolic 111–164; BP diastolic 74–118
[~2023-07-02 06:35] MED LIST changes: +ONDA4ODT PO; +OXAYDO5 M1 PO
[2023-07-02 08:39] LABS: Hematocrit 29.7 % (37.0-53.0); Hemoglobin 10.5 g/dL (13.5-17.5); Mean Corpuscular HGB 35.4 pg (26.0-34.0); Mean Corpuscular HGB Conc 35.4 g/dL (31.5-36.5); Mean Corpuscular Volume 100 fL (80-100); Mean Platelet Volume 10.3 fL (9.1-12.4); Platelet Count 476 K/mm3 (150-400); RDW Coefficient Variation 13.3 % (11.7-14.2); RDW Standard Deviation 49.2 fL (35.1-46.3); Red Blood Cell Count 2.97 M/mm3 (4.30-5.90); White Blood Cell Count 23.43 K/mm3 (4.00-11.30)
[2023-07-02 09:15] LABS: Calcium, Blood 8.9 mg/dL (8.5-10.1); Creatinine, Blood 0.52 mg/dL (0.60-1.20); Potassium, Blood 3.5 mmol/L (3.5-5.5)
[2023-07-02 09:28] LABS: BASOPHILS PERCENT MAN 0 % (0-2); EOSINOPHILS PERCENT MAN 0 % (0-6); LYMPHOCYTES ABSOLUTE MAN 1.64 K/mm3 (0.84-5.20); LYMPHOCYTES PERCENT MAN 7 % (21-46); MONOCYTES ABSOLUTE MAN 1.64 K/mm3 (0.16-1.47); MONOCYTES PERCENT MAN 7 % (4-13); NEUTROPHILS ABSOLUTE MAN 20.14 K/mm3 (1.96-9.15); SEG NEUTROPHILS PERCENT MAN 86 % (41-73); TOTAL CELLS COUNTED 100
--- NOTE | 2023-07-02 12:30 | NUR ---
07/02/23 1230 Hue Erwin PRIOR TO ARRIVING TO OR PATIENT RECEIVED A LEFT SUPRACLAVICULAR NERVE BLOCK BY AT BEDSIDE.
--- NOTE | 2023-07-02 18:09 | NUR ---
SHIFT SUMMARY S/P LEFT ELBOW ORIF, SPLINT/JOE ON, ELEVATED AT REST, WIGGLES FINGERS. PT ALERT, ORIENTEDx2, PLEASANT & COOPERATIVE WITH CARE, OVERESTIMATES ABILITIES, FOLLOWS DIRECTIONS; BED ALARM ON/DOES NOT CALL APPROPRIATELY. RONNI PO/MECH SOFT/NO TEETH. PAIN TREATED WITH PERC 5MG. VOIDING/URINAL/ATTENDS ON. STANDS AT SIDE OF BED TO URINATE/REPOSITIONS SELF. WILL REPORT TO ONCOMING NOC RN.
[2023-07-02 20:16] LABS: Source, Urine Clean Catch
[2023-07-02 20:21] LABS: Bilirubin, Urine Neg (Neg); Blood, Urine 1+ (Neg); Glucose Qualitative, Urine 1+ (Neg); Ketones, Urine 3+ (Neg); Leukocyte Esterase, Urine Neg (Neg); Nitrite, Urine Neg (Neg); Protein, Urine Neg (Neg); Specific Gravity, Urine 1.015 (1.003-1.022); Urobilinogen, Urine NORM (Normal); pH, Urine 6.5 (5.0-8.0)
[2023-07-02 20:25] LABS: Appearance, Urine Clear (Clear); Color, Urine Yellow (P-Yellow)
[2023-07-02 20:34] LABS: Amorphous Mod (0-Heavy); Bacteria Not Seen /hpf; Mucus Light (0-Heavy); Red Blood Cells, Urine 0-2 /hpf (0-2); Squamous Epithelial Cells Not Seen /hpf (Few); White Blood Cells, Urine 0-2 /hpf (0-5)
[2023-07-02 21:01] LABS: U Amphetamine Screen DETECTED; U Barbituate Screen Not Detected; U Benzodiazapine Screen Not Detected; U Buprenorphine Screen Not Detected; U Cannabinoids Screen DETECTED; U Cocaine Screen Not Detected; U Methadone Screen Not Detected; U Methamphetamine Screen DETECTED; U Opiates Screen DETECTED; U Oxycodone Screen DETECTED; U Phencyclidine Screen Not Detected; U Propoxyphene Screen Not Detected
[2023-07-03 04:13] VITALS: BP 114/76
--- NOTE | 2023-07-03 05:27 | NUR ---
SUMMARY PT PAIN HAS BEEN MANAGED WELL PER MAR. PT IS EATING AND DRINKING WELL. PT HAS A CONDOM CATH DRAINING TO GRAVITY. PT IS FORGETFUL AND IMPULSIVE AT TIMES. PT IS UNSTEADY ON FEET AND IS A FALL RISK. PT IS PLESANT AND COOPERATIVE. CALL LIGHT IN REACH AND BED ALARM ON.
[2023-07-03 06:29] LABS: BASOPHILS ABSOLUTE AUTO 0.05 K/mm3 (0.00-0.23); BASOPHILS PERCENT AUTO 0 % (0-2); EOSINOPHILS ABSOLUTE AUTO 0.04 K/mm3 (0.00-0.68); EOSINOPHILS PERCENT AUTO 0 % (0-6); Hematocrit 25.1 % (37.0-53.0); IMMATURE GRAN ABSOLUTE AUTO 0.09 K/mm3 (0.00-0.10); IMMATURE GRAN PERCENT AUTO 1 % (0-1); LYMPHOCYTES ABSOLUTE AUTO 2.51 K/mm3 (0.84-5.20); LYMPHOCYTES PERCENT AUTO 14 % (21-46); MONOCYTES ABSOLUTE AUTO 1.09 K/mm3 (0.16-1.47); MONOCYTES PERCENT AUTO 6 % (4-13); Mean Corpuscular HGB 35.3 pg (26.0-34.0); Mean Corpuscular HGB Conc 35.9 g/dL (31.5-36.5); Mean Corpuscular Volume 98 fL (80-100); Mean Platelet Volume 9.9 fL (9.1-12.4); NEUTROPHILS ABSOLUTE AUTO 14.84 K/mm3 (1.96-9.15); NEUTROPHILS PERCENT AUTO 80 % (41-73); Platelet Count 433 K/mm3 (150-400); RDW Coefficient Variation 13.3 % (11.7-14.2); RDW Standard Deviation 47.8 fL (35.1-46.3); Red Blood Cell Count 2.55 M/mm3 (4.30-5.90); White Blood Cell Count 18.62 K/mm3 (4.00-11.30)
[2023-07-03 07:07] LABS: Albumin, Blood 2.5 g/dL (3.4-5.0); Albumin/Globulin Ratio 0.7 (0.8-1.8); Bilirubin, Total 0.1 mg/dL (0.1-1.0); Bun/Creatinine Ratio 22.2 (12.0-20.0); Calcium, Blood 7.9 mg/dL (8.5-10.1); Creatinine, Blood 0.54 mg/dL (0.60-1.20); Globulin, Blood 3.4 g/dL (2.2-4.0); Percent Saturation 9.2 % (20.0-50.0); Potassium, Blood 3.7 mmol/L (3.5-5.5); Total Protein, Blood 5.9 g/dL (6.4-8.2)
[2023-07-03 07:35] VITALS: BP 137/102
[2023-07-03 07:37] VITALS: BP 174/95
[2023-07-03 09:15] VITALS: BP 125/74
[2023-07-03 15:06] VITALS: BP 118/81
--- NOTE | 2023-07-03 16:53 | NUR ---
SHIFT SUMMARY PT RESTED COMFORTABLY MOST OF SHIFT. PT UP TO BATHROOM WITH ASSISTANCE, PHYSICAL THERAPY WORKED WITH PT AND WAS CLEARED TO GO HOME. PT TO D/C LATER TODAY. PT IS POD 2 FROM ORIF OF LEFT ELBOW FX. PAIN MANAGED PER EMR. VSS, BREATHING EVEN AND UNLABORED, AFEBRILE. CONDOM CATH IN PLACE. CALL LIGHT WITHIN REACH, BED IN LOWEST POSITION.
--- NOTE | 2023-07-03 17:53 | NUR ---
DISCHARGE PT D/C VIA WC TO TRANSPORT CAR. PT MEDICATED PER EMR PRIOR TO LEAVING THE UNIT. PAIN CONTROLLED, VSS, AFEBRILE, BREATHING UNLABORED AND EVEN. PT LEFT UNIT AT APPROXIMATELY 1730 WITH ALL BELONGINGS.
== END 2023-07-03 17:21 | disposition home or self-care (01) ==
LOC: ER 06:35 → SURS 06:36
PROVIDERS: Emergency Medicine; ADMIT Internal Medicine
DX: S52.022A Displaced fracture of olecranon process without intraarticular extension of left ulna, initial encounter for closed fracture (principal); Y04.0XXA Assault by unarmed brawl or fight, initial encounter; F15.10 Other stimulant abuse, uncomplicated; E86.0 Dehydration; K59.00 Constipation, unspecified; D72.829 Elevated white blood cell count, unspecified; D64.9 Anemia, unspecified; I10 Essential (primary) hypertension; F17.210 Nicotine dependence, cigarettes, uncomplicated; Z88.8 Allergy status to other drugs, medicaments and biological substances
CPT/HCPCS: 29105; 36415; 73080; 73200; 80048; 80053; 81001; 82607; 82728; 82746; 83540; 83550; 85025; 96365; 96366; 96374-59; 96375-59; 96376; 97112; 97116; 97162; 97165; 97530; 97535; 99285-25; A9270; C1713; G0378; J0690; J2250; J2270; J2371; J2405; J2704; J3010; J7030

== ENCOUNTER 2023-07-15 01:28 | Inpatient (IN) | payer OTHER ==
[~2023-07-15] VITALS: Ht 172.7 cm; Wt 54.0 kg
[2023-07-15 02:04] LABS: BASOPHILS ABSOLUTE AUTO 0.07 K/mm3 (0.00-0.23); BASOPHILS PERCENT AUTO 0 % (0-2); EOSINOPHILS ABSOLUTE AUTO 0.43 K/mm3 (0.00-0.68); EOSINOPHILS PERCENT AUTO 2 % (0-6); Hemoglobin 10.5 g/dL (13.5-17.5); IMMATURE GRAN ABSOLUTE AUTO 0.16 K/mm3 (0.00-0.10); IMMATURE GRAN PERCENT AUTO 1 % (0-1); LYMPHOCYTES ABSOLUTE AUTO 1.28 K/mm3 (0.84-5.20); LYMPHOCYTES PERCENT AUTO 7 % (21-46); MONOCYTES ABSOLUTE AUTO 0.69 K/mm3 (0.16-1.47); MONOCYTES PERCENT AUTO 4 % (4-13); Mean Corpuscular HGB 34.8 pg (26.0-34.0); Mean Corpuscular Volume 99 fL (80-100); Mean Platelet Volume 9.4 fL (9.1-12.4); NEUTROPHILS ABSOLUTE AUTO 15.79 K/mm3 (1.96-9.15); NEUTROPHILS PERCENT AUTO 86 % (41-73); Platelet Count 521 K/mm3 (150-400); RDW Coefficient Variation 13.4 % (11.7-14.2); RDW Standard Deviation 49.4 fL (35.1-46.3); Red Blood Cell Count 3.02 M/mm3 (4.30-5.90); White Blood Cell Count 18.42 K/mm3 (4.00-11.30)
[2023-07-15 02:17] LABS: Alanine Aminotransfer (ALT/SGP 19 U/L (12-78); Albumin, Blood 3.4 g/dL (3.4-5.0); Albumin/Globulin Ratio 0.8 (0.8-1.8); Alk Phos 111 U/L (50-136); Anion Gap 5 mmol/L (6-16); Aspartate Aminotrans (AST/SGOT 24 U/L (12-37); Bilirubin, Total 0.2 mg/dL (0.1-1.0); Blood Urea Nitrogen 16 mg/dL (8-24); CO2, Blood 29 mmol/L (21-32); Calcium, Blood 8.8 mg/dL (8.5-10.1); Chloride, Blood 103 mmol/L (98-108); Creatinine, Blood 0.62 mg/dL (0.60-1.20); Globulin, Blood 4.2 g/dL (2.2-4.0); Glomerular Filtration Rate 108 (60-); Glucose, Blood 161 mg/dL (70-99); Potassium, Blood 3.9 mmol/L (3.5-5.5); Sodium, Blood 137 mmol/L (136-145); Total Protein, Blood 7.6 g/dL (6.4-8.2)
[2023-07-15 02:27] LABS: Ethanol (Alcohol), Blood, Med <3 mg/dL
[2023-07-15 10:40] VITALS: BP 144/80
[2023-07-15 10:45] VITALS: BP 148/96
[2023-07-15 11:00] VITALS: BP 146/100
[2023-07-15 11:00] LABS: U Amphetamine Screen DETECTED; U Cannabinoids Screen DETECTED; U Methamphetamine Screen DETECTED
[2023-07-15 11:01] LABS: U Barbituate Screen Not Detected; U Benzodiazapine Screen Not Detected; U Buprenorphine Screen Not Detected; U Cocaine Screen Not Detected; U Methadone Screen Not Detected; U Opiates Screen Not Detected; U Oxycodone Screen Not Detected; U Phencyclidine Screen Not Detected; U Propoxyphene Screen Not Detected
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
[2023-07-15 15:00] VITALS: BP 165/93
--- NOTE | 2023-07-15 17:07 | NUR ---
SHIFT SUMMARY: PT WITH NO ACUTE CHANGES SINCE ADMISSION. RESPONDS TO VERBAL STIMULI. BP AND HR STABLE, AFEBRILE, SPO2 >98% ON ROOM AIR. CHEST TUBE REMAINS IN PLACE WITH BLOOD OUTPUT. PULMOLOGY CONSULTED THIS AFTERNOON, ORDERS RECEIVED SEE EMAR. PT ABLE TO VOID IN URINAL, APPROX 800ML OF OUTPUT THIS SHIFT. NO BM. ABLE TO REPOS IND IN BED. BED IN LOW, CALL LIGHT IN REACH, WILL REPORT TO ONCOMING RN.
[2023-07-15 19:31] VITALS: BP 114/74
[2023-07-15 23:21] VITALS: BP 112/73
[2023-07-16 03:48] VITALS: BP 129/83
--- NOTE | 2023-07-16 05:47 | NUR ---
END OF SHIFT NOTE PT A&OX3-4, COOPERATIVE W/ CARE AND ABLE TO COMMUNICATE NEEDS W/ STAFF. NO ACUTE CHANGES THIS SHIFT. HR 70-90'S, SR ON TELE. SBP 110-120'S, DENIES CHEST PAIN/PRESSURE. SPO2 >95% ON RA, DENIES SOB. AFEBRILE. CHEST TUBE IN PLACE W/O CREPITUS, 50ML RED OUTPUT THIS SHIFT. REASSESSED Q2-4HRS. NO CLEAR ORDERS FOR CHEST TUBE RECEIVED; DR. VILLASEÑOR'S NOTE ENDORSED CHEST TUBE TO SUCTION. PT ABLE TO VOID IN URINAL INDEPENDENTLY, NO BM THIS SHIFT. ABLE TO REPOSITION SELF IN BED. MULTIPLE WOUNDS NOTED, PHOTOS IN CHART. NO OTHER EVENTS THIS SHIFT. CALL LIGHT WITHIN REACH, BED IN LOWEST POSITION. WILL REPORT TO ONCOMING RN.
[2023-07-16 07:42] VITALS: BP 123/78
--- NOTE | 2023-07-16 08:38 | NUR ---
AM NOTE: PATIENT ALERT AND ORIENTED X3-4. VERY TALKATIVE AND COOPERATIVE WITH CARES THIS AM. DENIES N/T. BEDREST AT THIS TIME. PERRLA. SMALL ABRASION TO TOP/POSTERIOR HEAD THAT IS SCABBED OVER FROM PRIOR FALL, WELL SMALL HEMATOMA ON FORHEAD. ABLE TO TURN SELF IN BED. TELE SHOWING SR/ST WITH HR 90-100'S. DENIES CHEST PAIN/PRESSURE/PALPITATIONS. BP STABLE. PPP. IV SALINE LOCKED. SCD'S IN PLACE. ON ROOM AIR SATING ABOVE 95%. EVEN AND UNLABORED RESPIRATIONS. CHEST TUBE TO RIGHT LATERAL, DRESSING C/D/I. CHEST TUBE TO WALL SUCTION AND CHEST TUBE COMPARTMENT SUCTION SET AT -[id number]. NO CREPITUS OR AIR LEAKS NOTED. PATIENT DENIES PAIN ASSOCIATED WITH CHEST TUBE AT REST AND A DULL ACHE WHEN MOVING. LUNGS SOUNDS DIMINSHED THROUGHOUT, ABLE TO HEAR SLIGHTLY MORE ON LEFT SIDE COMPARED TO RIGHT. PATIENT EDUCATION ON CHEST TUBE SAFETY WHEN MOVING AROUND IN BED. DENIES ABDOMINAL PAIN/NAUSEA, EATING AND VOIDING WNL. USING URINAL IN BED. BOWEL TONES PRESENT. SKIN SCATTERED WITH BRUISING AND SCABS. CALL LIGHT IN REACH. DENIES NEEDS AT THIS TIME. PATIENT WATCHING TV IN BED.
--- NOTE | 2023-07-16 09:36 | NUR ---
DR. HARRISON BY FOR PROVIDER ROUNDING. NO NEW ORDERS FOR THIS RN TO PLACE.
[2023-07-16 11:03] VITALS: BP 123/86
--- NOTE | 2023-07-16 12:01 | NUR ---
DR. VILLASEÑOR BY FOR PROVIDER ROUNDING, THIS RN AT BEDSIDE. PATIENT CURRENTLY DOES NOT HAVE PCP AND WILL NEED HELP ASSISTING SETUP/REFERRAL THROUGH [facility]. ORDERS FOR CHEST TUBE TO BE PLACED ON WATER SEAL. PATIENT ALSO TO FOLLOW UP WITH DR. VILLASEÑOR OUTPATIENT. AFTERNOON VITALS STABLE. BED BATH GIVEN. PATIENT EATING LUNCH AT THIS TIME. PATIENT EDUCATED ON PLACING CHEST TUBE TO WATER SEAL AND SYMPTOMS TO REPORT. PATIENT ON CONTINUOUS PULSE OX, RESPIRATIONS 16 AND AT THIS TIME EVEN AND UNLABORED BREATHING. DENIES SOB/PAIN.
[2023-07-16 15:34] VITALS: BP 139/78
--- NOTE | 2023-07-16 17:59 | NUR ---
SHIFT SUMMARY: NO ACUTE CHANGES. VITAL SIGNS REMAIN STABLE. CHEST TUBE CONTINUES ON WATER SEAL, NO LEAKS OR CREPITUS NOTED. PATIENT DENIES PAIN ASSOCIATED WITH CHEST TUBE. REMAINS ON ROOM AIR SATING ABOVE 95%. DENIES SOB. ABX INFUSED. NO CHANGES TO TELE. EATING AND VOIDING WNL. CALL LIGHT IN REACH. PATIENT COMPLAINS OF INTERMIT LEFT ELBOW PAIN, MEDICATED PER EMAR WITH TYLENOL AND ULTRAM. ICE PACK AND LEFT ELBOW ELEVATED ON PILLOWS. DENIES NEEDS AT THIS TIME. TALKING WITH FRIEND ON PHONE.
[2023-07-16 19:37] VITALS: BP 132/89
--- NOTE | 2023-07-16 21:15 | NUR ---
ASSUMPTION OF CARE NOTE THIS RN ASSUMED CARE AT APPROX 1915. PT AOX3-4. PLEASANT, COOPERATIVE WITH CARE. CAN BE FORGETFUL AT TIMES. IS A POOR HISTORIAN. CIWA OBTAINED, <4. VSS. TELEMETRY SHOWING SINUS 70's. BP STABLE. DENIES CHEST PAIN OR PRESSURE. IS ON ROOM AIR, SATS >95%. CHEST TUBE PATENT, TO WATER SEAL. DRESSING C/D/I. NO FURTHER DRAINAGE SINCE INITIAL 50ML. NO CREPITUS NOTED. NO AIR LEAKS NOTED IN TUBING OR CHAMBERS. IS VOIDING SMALL AMOUNTS AT A TIME, CONTINENT. URINAL AT BEDSIDE. REPORTING L ARM PAIN 7/10 FROM PREVIOUS INJURY. MANAGING PER EMAR W/ REPORTED RELIEF. PT IS A 1P ASSIST OUT OF BED, BED ALARM ON DUE TO HISTORY OF FALLS. EDUCATION AND REINFORCEMENT PROVIDED REGARDING USE OF CALL LIGHT. PT IS ABLE TO CHANGE POSITIONS IN BED W/ MINIMAL ASSIST. CALL LIGHT IN REACH.
[2023-07-16 23:15] VITALS: BP 148/89
[2023-07-17 05:03] VITALS: BP 141/86
--- NOTE | 2023-07-17 05:38 | NUR ---
SHIFT SUMMARY NO ACUTE CHANGES SINCE PREVIOUS ASSUMPTION OF CARE. PT REMAINS ALERT AND ORIENTED X3-4. PLEASANT AND COOPERATIVE WITH CARE THROUGHOUT SHIFT. CIWA's REMAIN <4. SLEPT PERIODICALLY THROUGHOUT SHIFT, EASILY AROUSABLE TO VERBAL STIMULI. FREQUENT SNACKS PROVIDED. VS REMAIN STABLE. TELEMETRY CONTINUING TO SHOW SINUS. RATE 70's-80's. BP STABLE. REMAINS ON ROOM AIR, SATS >95%. CHEST TUBE REMAINS PATENT, TO WATER SEAL. NO FURTHER DRAINAGE IN COLLECTION CHAMBER. DRESSING REMAINS C/D/I. NO AIR LEAKS NOTED. NO CREPITUS ASSESSED. SCHEDULED IMAGING OBTAINED THIS MORNING. L ARM PAIN MANAGED PER EMAR. VOIDING. URINAL AT BEDSIDE. ABLE TO REPOSITION HIMSELF IN BED. CALL LIGHT IN REACH. WILL REPORT TO ONCOMING RN.
[2023-07-17 07:54] VITALS: BP 145/80
[2023-07-17 12:33] VITALS: BP 147/85
[2023-07-17] MEDS ORDERED: ALBU8HFA2 INH (15:00)
[2023-07-17] MEDS ORDERED: TIOT18 INH (15:01)
[2023-07-17] MEDS ORDERED: CEFP200 PO (15:01)
[2023-07-17] MEDS ORDERED: PRED20 PO (15:02)
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
[2023-07-20 04:10] LABS: CARBOXY-THC 241 (.)
== END 2023-07-17 15:29 | disposition home or self-care (01) | DRG 200 ==
LOC: ER 01:28 → PCU 09:26
PROVIDERS: Student in an Organized Health Care Education/Training Program; ADMIT Internal Medicine
PROC: 0W9930Z Drainage of Right Pleural Cavity with Drainage Device, Percutaneous Approach (ICD-10-PCS; principal; 2023-07-15)
PROC: HZ2ZZZZ Detoxification Services for Substance Abuse Treatment (ICD-10-PCS; 2023-07-15)
DX: S27.0XXA Traumatic pneumothorax, initial encounter (principal); F10.239 Alcohol dependence with withdrawal, unspecified; L03.114 Cellulitis of left upper limb; Z59.00 Homelessness unspecified; J44.1 Chronic obstructive pulmonary disease with (acute) exacerbation; K86.0 Alcohol-induced chronic pancreatitis; K86.3 Pseudocyst of pancreas; I10 Essential (primary) hypertension; X58.XXXA Exposure to other specified factors, initial encounter; F15.10 Other stimulant abuse, uncomplicated; S09.90XA Unspecified injury of head, initial encounter; F17.200 Nicotine dependence, unspecified, uncomplicated; Z90.89 Acquired absence of other organs; R29.6 Repeated falls; Z87.81 Personal history of (healed) traumatic fracture; Z98.890 Other specified postprocedural states; Z91.048 Other nonmedicinal substance allergy status; Z71.6 Tobacco abuse counseling; Y90.0 Blood alcohol level of less than 20 mg/100 ml
CPT/HCPCS: 32551; 70450; 71045; 72125; 73070; 80053; 84484; 85025; 85651; 86140; 93005; 93010; 94640; 94664; 94762; 96361-59; 96365-59; 96375-59; 99285-25; A9270; G0480; J0690; J0696; J1790; J1885; J2560; J2920; J3010; J7030; J7512

== ENCOUNTER 2023-07-31 10:17 | Emergency (ER) | payer OTHER ==
[~2023-07-31] VITALS: Ht 170.2 cm; Wt 59.0 kg
[~2023-07-31 10:17] MED LIST changes: +ALBU8HFA2 INH; +CEFP200 PO; +PRED20 PO; +TIOT18 INH
[2023-07-31 11:04] LABS: BASOPHILS ABSOLUTE AUTO 0.04 K/mm3 (0.00-0.23); BASOPHILS PERCENT AUTO 0 % (0-2); EOSINOPHILS ABSOLUTE AUTO 0.35 K/mm3 (0.00-0.68); EOSINOPHILS PERCENT AUTO 1 % (0-6); Hematocrit 34.4 % (37.0-53.0); IMMATURE GRAN ABSOLUTE AUTO 0.16 K/mm3 (0.00-0.10); IMMATURE GRAN PERCENT AUTO 1 % (0-1); LYMPHOCYTES ABSOLUTE AUTO 0.39 K/mm3 (0.84-5.20); LYMPHOCYTES PERCENT AUTO 2 % (21-46); MONOCYTES ABSOLUTE AUTO 0.28 K/mm3 (0.16-1.47); MONOCYTES PERCENT AUTO 1 % (4-13); Mean Corpuscular HGB 33.5 pg (26.0-34.0); Mean Corpuscular HGB Conc 34.9 g/dL (31.5-36.5); Mean Corpuscular Volume 96 fL (80-100); Mean Platelet Volume 10.5 fL (9.1-12.4); NEUTROPHILS PERCENT AUTO 95 % (41-73); Platelet Count 354 K/mm3 (150-400); RDW Coefficient Variation 13.5 % (11.7-14.2); RDW Standard Deviation 48.1 fL (35.1-46.3); Red Blood Cell Count 3.58 M/mm3 (4.30-5.90); White Blood Cell Count 24.42 K/mm3 (4.00-11.30)
[2023-07-31 11:51] LABS: Albumin, Blood 2.5 g/dL (3.4-5.0); Albumin/Globulin Ratio 0.6 (0.8-1.8); Bilirubin, Total 0.5 mg/dL (0.1-1.0); Bun/Creatinine Ratio 25.2 (12.0-20.0); Calcium, Blood 8.5 mg/dL (8.5-10.1); Creatinine, Blood 0.71 mg/dL (0.60-1.20); Globulin, Blood 4.4 g/dL (2.2-4.0); Potassium, Blood 3.7 mmol/L (3.5-5.5); Total Protein, Blood 6.9 g/dL (6.4-8.2)
[2023-07-31] MEDS ORDERED: Toprol Xl25 MG PO (15:39)
[2023-07-31 16:15] VITALS: BP 141/63
== END 2023-07-31 16:38 | disposition home or self-care (01) ==
LOC: ER 10:17
PROVIDERS: Emergency Medicine
DX: R55 Syncope and collapse (principal); I48.91 Unspecified atrial fibrillation; M79.602 Pain in left arm; I10 Essential (primary) hypertension; F17.210 Nicotine dependence, cigarettes, uncomplicated; Z87.81 Personal history of (healed) traumatic fracture; Z79.899 Other long term (current) drug therapy
CPT/HCPCS: 71045; 73060; 73630; 80053; 85025; 93005; 93010; 96374; 96375; 99285-25; J1885

== ENCOUNTER 2023-08-05 22:11 | Inpatient (IN) | payer OTHER ==
[~2023-08-05] VITALS: Ht 170.2 cm; Wt 52.6 kg
[~2023-08-05 22:11] MED LIST changes: +Toprol Xl25 MG PO
[2023-08-06 03:09] LABS: Hematocrit 28.4 % (37.0-53.0); Hemoglobin 10.5 g/dL (13.5-17.5); Mean Corpuscular Volume 89 fL (80-100); Mean Platelet Volume 12.7 fL (9.1-12.4); NRBC ABSOLUTE 0.14 K/mm3 (0.00-0.02); NRBC Auto 0.6 /100 WBC (0.0-0.2); Platelet Count 161 K/mm3 (150-400); RDW Coefficient Variation 13.2 % (11.7-14.2); RDW Standard Deviation 43.2 fL (35.1-46.3); Red Blood Cell Count 3.18 M/mm3 (4.30-5.90); White Blood Cell Count 24.34 K/mm3 (4.00-11.30)
[2023-08-06 03:45] LABS: Anion Gap 6 mmol/L (6-16); Blood Urea Nitrogen 19 mg/dL (8-24); Bun/Creatinine Ratio 41.3 (12.0-20.0); C-REACTIVE PROTEIN, EXT RANGE >19.000 mg/dL (0.000-0.300); CO2, Blood 27 mmol/L (21-32); Calcium, Blood 7.7 mg/dL (8.5-10.1); Chloride, Blood 99 mmol/L (98-108); Creatinine, Blood 0.46 mg/dL (0.60-1.20); Glomerular Filtration Rate 118 (60-); Glucose, Blood 77 mg/dL (70-99); Potassium, Blood 4.3 mmol/L (3.5-5.5); Sodium, Blood 132 mmol/L (136-145)
[2023-08-06 03:46] LABS: BAND PERCENT MAN 7 % (0-8); BASOPHILS PERCENT MAN 0 % (0-2); EOSINOPHILS ABSOLUTE MAN 0.24 K/mm3 (0.00-0.68); EOSINOPHILS PERCENT MAN 1 % (0-6); LYMPHOCYTES PERCENT MAN 7 % (21-46); MONOCYTES ABSOLUTE MAN 0.73 K/mm3 (0.16-1.47); MONOCYTES PERCENT MAN 3 % (4-13); MYELOCYTE ABSOLUTE MAN 0.24 K/mm3 (0.00-0.00); MYELOCYTE PERCENT MAN 1 % (0-0); NEUTROPHILS ABSOLUTE MAN 21.41 K/mm3 (1.96-9.15); SEG NEUTROPHILS PERCENT MAN 81 % (41-73); TOTAL CELLS COUNTED 100
[2023-08-06] MEDS ORDERED: METO25ER PO (04:33)
[2023-08-06 05:53] VITALS: BP 131/83
--- NOTE | 2023-08-06 06:44 | NUR ---
ADMIT NOTE 63 YR OLD MALE ADMITTED FROM THE ED WITH DX OF SEPSIS, PNA AND GOUT. MAIN C/O IS PAIN OF RIGHT FOOT. ED RN VOICED PT HX HOMELESS AND MOVES AROUND AREA. HX FALLS AND FX'S IN RESULTS. REPORTED RGHT RIB FX, PT VOICED FX OF LEFT ARM AND RIGHT TOE. MED TELE INITIATED. ALERT AND ORIENTED. LUNGS DIM TO AUSCULTATION, CONGESTED COUGH. PT TO GIVE SPUTUM SPECIMEN WHEN AVAIL - STERILE CUP AT BEDSIDE. WBD ELEVATED (24.34). ORIENTED TO SE OF CALL LIGHT. CALL LIGHT IN REACH.
[2023-08-06 08:07] VITALS: BP 114/77
[2023-08-06 10:08] LABS: Influenza A, PCR NEGATIVE (NEGATIVE); Influenza B, PCR NEGATIVE (NEGATIVE); Resp Syncytial Virus, PCR NEGATIVE (NEGATIVE); SARS-Cov-2 (COVID-19) PCR, MMC NEGATIVE (NEGATIVE)
[2023-08-06 15:45] VITALS: BP 134/79
--- NOTE | 2023-08-06 17:58 | NUR ---
SHIFT NOTE MR SOSA IS OX4. SLEEPING QUITE A LOT OF THE DAY. HE WAS IRRITATED BY QUESTIONS AND ASSESSMENT AND DID NOT LET ME REMOVE HIS SOCKS FOR ASSESSMENT THOUGH HE IS C/O RIGHT FOOT PAIN. LEFT ELBOW IS SWOLLEN AND HE IS RELUCTANT TO MOVE LEFT ARM. HE HAS NOT STOOD UP TODAY, SLID ONTO STRETCHER FOR TRANSFER TO CT SCAN. HE DID NOT SEE PHYSICAL THERAPY TODAY HE WAS HEADED TO C.T.SCAN. C/O CENTRAL LOWER CHEST PAIN THAT HE DESCRIBES CHRONIC "PANCREAS PAIN". HE HAS A STRONG MOIST PRODUCTIVE COUGH (SAMPLE SENT). HE SAID HE HAS NOT HAD A BM FOR A WEEK BUT SAID HE DOES NOT WANT A LAXATIVE. HE DID INCENTIVE SPIROMETRY WITH FAIR TECHNIQUE UP TO 1000CC. HE SAID HE ONLY DRINKS ALCOHOL ONCE A MONTH HAD CIWA OF 0. ON TELEMETRY IN ST. CALL FROM ASSOCIATE FINANCIAL ADVISOR THIS AM THAT HE HAD [address] TO 160S- DR ALMEIDA INFORMED. BED LOW, CALL LIGHT IN REACH. BED ALARM ON.
[2023-08-06 19:35] VITALS: BP 121/72
[2023-08-07 02:58] VITALS: BP 123/79
--- NOTE | 2023-08-07 04:10 | NUR ---
SHIFT SUMMARY JOJO IS ALERT AND FULLY ORIENTED ON ASSESSMENT. EVASIVE ANSWERS TO MOST QUESTIONS. I WAS ABLE TO GET THE PT TO REMOVE HIS SOCK FOR ASSESSMENT, SWELLING AND ESCHAR PRESENT ON GREAT TOE, SEE PICTURES IN CHART. LAB CALLED ME TO REPORT POSITIVE BLOOD CULTURE, HOSPITALIST DR FERNANDEZ NOTIFIED, VANCO PER PHARMACY ORDERED, FIRST DOSE ADMINISTERED. PT PULLED IV IN RIGHT AC, STILL HAS PATENT IV IN LEFT ARM. PT IS RESTING IN BED AT THIS TIME IN A LOW POSITION WITH THE CALL LIGHT IN PLACE.
[2023-08-07 05:07] LABS: Hematocrit 23.6 % (37.0-53.0); Hemoglobin 8.8 g/dL (13.5-17.5); Mean Corpuscular HGB Conc 37.3 g/dL (31.5-36.5); Mean Corpuscular Volume 88 fL (80-100); NRBC ABSOLUTE 0.13 K/mm3 (0.00-0.02); NRBC Auto 0.8 /100 WBC (0.0-0.2); Platelet Count 137 K/mm3 (150-400); RDW Coefficient Variation 13.7 % (11.7-14.2); RDW Standard Deviation 44.5 fL (35.1-46.3); Red Blood Cell Count 2.67 M/mm3 (4.30-5.90); White Blood Cell Count 16.41 K/mm3 (4.00-11.30)
[2023-08-07 05:11] LABS: Mean Platelet Volume 13.5 fL (9.1-12.4)
[2023-08-07 05:49] LABS: Albumin, Blood 1.3 g/dL (3.4-5.0); Albumin/Globulin Ratio 0.4 (0.8-1.8); Bilirubin, Total 0.5 mg/dL (0.1-1.0); Bun/Creatinine Ratio 35.4 (12.0-20.0); Calcium, Blood 7.6 mg/dL (8.5-10.1); Creatinine, Blood 0.45 mg/dL (0.60-1.20); Globulin, Blood 3.5 g/dL (2.2-4.0); Magnesium, Blood 1.9 mg/dL (1.6-2.4); Potassium, Blood 4.2 mmol/L (3.5-5.5); Total Protein, Blood 4.8 g/dL (6.4-8.2)
[2023-08-07 06:00] LABS: BAND PERCENT MAN 4 % (0-8); BASOPHILS PERCENT MAN 0 % (0-2); EOSINOPHILS ABSOLUTE MAN 0.32 K/mm3 (0.00-0.68); EOSINOPHILS PERCENT MAN 2 % (0-6); LYMPHOCYTES ABSOLUTE MAN 0.98 K/mm3 (0.84-5.20); LYMPHOCYTES PERCENT MAN 6 % (21-46); MONOCYTES ABSOLUTE MAN 0.32 K/mm3 (0.16-1.47); MONOCYTES PERCENT MAN 2 % (4-13); NEUTROPHILS ABSOLUTE MAN 14.76 K/mm3 (1.96-9.15); SEG NEUTROPHILS PERCENT MAN 86 % (41-73); TOTAL CELLS COUNTED 100
[2023-08-07 08:02] VITALS: BP 117/72
[2023-08-07 15:54] VITALS: BP 130/74
--- NOTE | 2023-08-07 18:43 | NUR ---
SHIFT SUMMARY: PT A/O X 4, ONE ASSIST, PLEASANT AND COOPERATIVE WITH CARE. PT CONTINUES TO BE ON RA, C/O PAIN TO R SIDE ESPECIALLY WORSE WHEN COUGHING. ENCOURAGING USE OF IS AND FLUTTER THERAPY. PT CONTINUES TO HAVE SWELLING TO L FOOT, TOE HAS BLACK SPOT. L ELBOW SWOLLEN AND PAINFUL FROM HIS FALL. ELEVATING ON PILLOW.
[2023-08-07 20:02] VITALS: BP 137/70
--- NOTE | 2023-08-07 22:06 | NUR ---
ASSUMED CARE OF PT. TELEMETRY CALLED TO REPORT A RHYTHM OF SVT THAT WAS OCCURING EVERY 30 SECONDS. ASSESSED PT, PT A&OX4, FEBRILE WITH A TEMP OF 99.5, REPORTS ANXIETY, INCREASED RESPIRATIONS, INCREASED HEARTRATE, AND PAIN. CALL PLACED TO DR FLORENTINO. AWAITING ORDERS.
[2023-08-08] VITALS (16 sets, daily range): BP systolic 101–143; BP diastolic 61–92
[2023-08-08 01:34] LABS: Anion Gap 6 mmol/L (6-16); Blood Urea Nitrogen 10 mg/dL (8-24); Bun/Creatinine Ratio 24.4 (12.0-20.0); CO2, Blood 26 mmol/L (21-32); Calcium, Blood 7.2 mg/dL (8.5-10.1); Chloride, Blood 99 mmol/L (98-108); Creatinine, Blood 0.41 mg/dL (0.60-1.20); Glomerular Filtration Rate 122 (60-); Glucose, Blood 153 mg/dL (70-99); Potassium, Blood 4.1 mmol/L (3.5-5.5); Sodium, Blood 131 mmol/L (136-145); Vancomycin, Trough 10.8 ug/mL (5.0-10.0)
[2023-08-08 02:35] LABS: Hematocrit 21.3 % (37.0-53.0); Hemoglobin 7.9 g/dL (13.5-17.5); Mean Corpuscular HGB 32.4 pg (26.0-34.0); Mean Corpuscular HGB Conc 37.1 g/dL (31.5-36.5); Mean Corpuscular Volume 87 fL (80-100); NRBC ABSOLUTE 0.07 K/mm3 (0.00-0.02); NRBC Auto 0.3 /100 WBC (0.0-0.2); RDW Coefficient Variation 13.4 % (11.7-14.2); RDW Standard Deviation 41.8 fL (35.1-46.3); Red Blood Cell Count 2.44 M/mm3 (4.30-5.90); White Blood Cell Count 21.61 K/mm3 (4.00-11.30)
[2023-08-08 03:23] LABS: Mean Platelet Volume 13.7 fL (9.1-12.4)
[2023-08-08 03:29] LABS: Platelet Count 113 K/mm3 (150-400)
--- NOTE | 2023-08-08 04:20 | NUR ---
SHIFT SUMMARY PT A&OX4 AND RESPONDS APPROPRIATELY TO QUESTIONS. PT EXPERIENCED MULTIPLE BOUTS OF SVT, PT ASSESSMENT STABLE AND PROVIDER NOTIFIED. PROVIDER CAME TO BEDSIDE TO ASSESS AND METOPROLOL ADMINISTERED PER MD ORDERS. PT FEBRILE AND HAS PURULENT DRAINAGE COMING FROM THE LEFT ELBOW. ORDERED CONSULT FOR MORNING TO ASSESS JOINT. VANCOMYCIN INFUSED, PT RESPONDED WELL TO INTERVENTION. NO ACUTE EVENTS AT THIS TIME, PT KEPT IN A POSITION OF SAFETY WITH FALL PREVENTIONS IN PLACE AND CALL LIGHT WITHIN REACH.
[2023-08-08 12:14] LABS: International Normalized Ratio 1.17; Prothrombin Time Results 12.2 Sec (9.7-11.5)
[2023-08-08 14:20] LABS: Automated BF RBC Count 0.002 M/mm3 (0-0); Automated BF WBC Count 2.016 K/mm3 (0-999)
[2023-08-08 14:21] LABS: Body Fluid WBC Count 2016 /mm3 (0-999); RBC Count, Body Fluid 2000 /mm3 (0-0)
[2023-08-08 14:24] LABS: Appearance, Body Fluid Hazy (Clear); Color, Body Fluid Yellow (None-Yellow)
[2023-08-08 15:03] LABS: Total Cell Count, Body Fluid 100
[2023-08-08 15:37] LABS: Glucose, Body Fluid <1 mg/dL; Lactate Dehydrogenase, Body Fl 2014 U/L; Protein, Body Fluid 2.9 g/dL
--- NOTE | 2023-08-08 15:50 | NUR ---
08/08/23 1550 Camryn Ballesteros PT ON SCHEDULED ABX.
[2023-08-08 15:53] LABS: pH, Body Fluid 7.7
--- NOTE | 2023-08-08 18:42 | NUR ---
SHIFT SUMMARY: PT A/O X 4, BEDREST AT THIS TIME. PT DECLINES PT/OT DUE TO PAIN SWELLING IN R ARM. PLEASANT AND COOPERATIVE OTHER MIMS WITH CARE. PT USES URINAL TO VOID. PT HAD DEBRIDEMENT OF R ELBOW TODAY. PT TOLERATED PROCEDURE WELL. HE CAME BACK FROM PROCEDURE WITH COMPLAINTS OF ARM THROBBING AND ATTEMPTED TO TAKE OFF DRESSING STATING "IT'S TOO TIGHT" THE REASON HE DID THIS. PT REPORTED TO HAVE NO N/T IN R HAND OR FINGERS. PT DENIED HAVING NO FEELING TO FINGERS WITH TOUCH. PT HAD PINK FINGERNAILS. PT EDUCATED ON PAIN MANAGEMENT AND REQUESTED HE DOES NOT REMOVE BANDAGE. PT VU AND WAS COMPLIANT REST OF SHIFT. PT WAS GIVEN OXYCODONE FOR THE PAIN AND ARM ELEVATED ON 2 PILLOWS INSTEAD OF ONE AND APPEARS TO HAVE BEEN EFFECTIVE AT THIS TIME. PT ATE DINNER WITH NO REPORTS OF N/V. PT HAS ST BUT ASYMPTOMATIC WITH ANY CARDIAC SYMPTOMS.
[2023-08-09] VITALS (21 sets, daily range): BP systolic 119–153; BP diastolic 61–83
[2023-08-09 04:26] LABS: Hematocrit 21.4 % (37.0-53.0); Mean Corpuscular HGB 32.3 pg (26.0-34.0); Mean Corpuscular HGB Conc 37.4 g/dL (31.5-36.5); Mean Corpuscular Volume 86 fL (80-100); NRBC Auto 0.6 /100 WBC (0.0-0.2); Platelet Count 106 K/mm3 (150-400); RDW Coefficient Variation 13.5 % (11.7-14.2); Red Blood Cell Count 2.48 M/mm3 (4.30-5.90); White Blood Cell Count 18.09 K/mm3 (4.00-11.30)
[2023-08-09 04:28] LABS: Mean Platelet Volume 13.5 fL (9.1-12.4)
--- NOTE | 2023-08-09 04:37 | NUR ---
SHIFT SUMMARY PATIENT HAD NO ACUTE CHANGES. AXOX 4 AND ONE ASSIST TO BSC. USES URINAL AT BEDSIDE. PIV REMAINS INTACT. IV ABX INFUSED. TELE MONITOR ST 101. LEFT ARM ELEVATED ON PILLOWS AND WRAPPED. DENIES CHEST PAIN, SOB, AND N/V. LOW GRADE TEMP 99.2. COOPERATIVE WITH CARE. CALL LIGHT IN REACH. BED IN LOWEST POSITION. WILL CONTINUE TO MONITOR UNTIL DAY SHIFT NURSE ASSUMES CARE.
[2023-08-09 04:47] LABS: Bun/Creatinine Ratio 25.6 (12.0-20.0); Calcium, Blood 7.4 mg/dL (8.5-10.1); Creatinine, Blood 0.39 mg/dL (0.60-1.20); Potassium, Blood 4.5 mmol/L (3.5-5.5)
--- NOTE | 2023-08-09 11:55 | NUR ---
ASSUME CARE PT TRANSFERRED TP PCU2 VIA BED REPORT RECEIVED FORM CHITO SHETTY VIA PHONE. PT ALERT AND ORIENTED, PLEEASANT AND COOPERATIVE. PT KEPT NPO FOR PROCEDURE TODAY CHEST TUBE PLACEMENT. WILL CONTINUE TO MONITOR
--- NOTE | 2023-08-09 12:21 | NUR ---
TRANSFER SUMMARY: PT TRANSFERRED TO PCU 2. REPORT GIVEN TO INDIRA SHETTY. BELONGINGS SENT WITH PT.
--- NOTE | 2023-08-09 13:57 | NUR ---
Dr Silva and Dr Merlos, Alexsander RN, Marilou RN, Maxine RN, and Wesley RT at bedside as well. 1355 ns started 1357 50mcg fentanyl 1359 2mg versed 1404 50mcg fentanyl 1408 2mg versed Thoracic catheter 28 par[place] chest tube set up to suction, approx 450 out as of right now.
--- NOTE | 2023-08-09 14:54 | NUR ---
PT CURRENTLY RECOVERING PSOT PROCEDURE CHEST TUBE PLACEMENT SEE PREVIOUS NOTE. PT VITALS HRR 90'S SR SBP 130'S MAP >70'S, SATS ABOVE 90% ON 2L OF O2, PT STILL ASLEEP AT THIS TIME. PT TOLERATED THE PROCEDURE WELL. CHEST XRAY POST PROCEDURE DONE TO VERIFY PLACEMENT, PT ALREADY HAS 700 MLS DRAINAGE OUT PUT ON THE CHEST TUBE CANISTER SEROUS SANGUIENIOUS DRAINAGE. AWAITING FOR PT TO WAKE UP AT THIS TIME WILL CONTINUE TO MONITOR PT
--- NOTE | 2023-08-09 18:02 | NUR ---
PT SUMMARY: PT RECOVERED WELL POST PROCEDURE CHEST TUBE PLACEMENT, CHEST TUBE HAS DRAINED 900MLS SEROUUS SANGUINEOUS DRAINAGE DR PEREZ CAME BY TO CHECK ON PT. VITALS HRR SR 90'S, SBP 120-150'S, SATS ABOVE 92% ON RA, AFEBRILE. DRESSING ON RIGHT LATERAL CHEST CDI. LEFT ELBOW DRESSING REMAINED IN PLACE/INTACT. PT HAS BEEN USING THE URINAL. CURRENTLY NOW EATING DINNER. INDEPENDENTLY MOVING IN THE BED. PT HAS SOME CHEST PAIN R/T CHEST TUBE AND RIB FX PAIN WORSENS WITH MOVEMENT PT TOELARATING PAIN AT THIS TIME POST PROCEDURE PT GOT SEDATION MEDICATION DURING PROCEDURE. NO OTHER ISSUES REPORTED FOR THE SHIFT, CALL LIGTHS INR EACH WILL REPORT TO ONCOMING SHIFT
--- NOTE | 2023-08-09 19:45 | NUR ---
NURSING PCU NOC SHIFT: Assumed care of pt at approx 1900. A/O at assessment, very pleasant, cooperative w/care. C/O 8/10 L elbow and R foot pain, treating w/meds and positioning. Skin is dry/fragile, scattered scabs to UE's, dressing to L elbow from recent I&D, last changed by surgeon today at approx 1830. General weakness, requires assistance w/xfers, able to perform most adl's in bed independently. Tele in place, NSR, no c/o CP/pressure, SBP 130 prior to bedtime meds, no noted edema. L/S fairly coarse t/o, dim/absent in R mid/lower lobes, O2 sat mid 90's on RA, R lateral CW CT to suction, draining serosanguineous fluid, harsh cough producing moderate amounts of thick sputum. BT+, voiding w/o difficulty per pt. PIV x1, s/l. No s/s of acute distress this evening. Pt denies any current needs or questions regarding plan of care. Discussed pain management plans t/o NOC. Call light in reach, snacks provided, assisted w/repositioning, cont to monitor for any changes.
[2023-08-10] VITALS (13 sets, daily range): BP systolic 122–161; BP diastolic 66–95
[2023-08-10 03:51] LABS: Hematocrit 18.8 % (37.0-53.0); Hemoglobin 6.9 g/dL (13.5-17.5); Mean Corpuscular HGB 32.9 pg (26.0-34.0); Mean Corpuscular HGB Conc 36.7 g/dL (31.5-36.5); Mean Corpuscular Volume 90 fL (80-100); NRBC ABSOLUTE 0.03 K/mm3 (0.00-0.02); NRBC Auto 0.1 /100 WBC (0.0-0.2); Platelet Count 163 K/mm3 (150-400); RDW Coefficient Variation 14.2 % (11.7-14.2); RDW Standard Deviation 45.9 fL (35.1-46.3); White Blood Cell Count 20.66 K/mm3 (4.00-11.30)
[2023-08-10 04:21] LABS: Mean Platelet Volume 13.5 fL (9.1-12.4)
--- NOTE | 2023-08-10 05:30 | NUR ---
NURSING PCU NOC SHIFT SUMMARY: No significant changes noted t/o the shift. VS have remained stable, respiratory status unchanged. CT remains in place and has drained 70cc of fluid t/o shift. Pt has continued to struggle w/rib fx related pain management, meds administered as ordered and staff assistance provided as needed. Pt has spent majority of shift awake and watching tv. Call light remains in reach and pt is able to use w/o difficulty. Denies any current questions/needs. Report given to CN to assume care for remainder of shift.
[2023-08-10 06:12] LABS: Bun/Creatinine Ratio 34.3 (12.0-20.0); Calcium, Blood 7.5 mg/dL (8.5-10.1); Creatinine, Blood 0.35 mg/dL (0.60-1.20); Potassium, Blood 4.1 mmol/L (3.5-5.5)
--- NOTE | 2023-08-10 18:03 | NUR ---
SHIFT SUMMARY PT A/OX3-4 AND COOPERATIVE OF CARE. PT ABLE TO EXPRESS NEEDS AND CALLS APPROPIATE. VSS THROUGHTOU SHIFT WITH SATS IN THE 90'S ON RN. PT REPORTS CHEST PAIN AT THE CHEST TUBE INSERTION SITE. PT REPORTED SOB AT TIMES THROUGHOUT SHIFT THAT WAS RELATED TO PAIN PER PT. PT EXPRESSED FRUSTRATION AT TIMES DUE TO PAIN, MD CHANGED MED TO NORCO, SEE ORDER. CHEST TUBE PATENT. NO ACUTE EVENTS THROUGHOUT SHIFT.
--- NOTE | 2023-08-10 20:50 | NUR ---
UPDATE REPORT FROM IGNACIO SHETTY THAT PT RECEIVED 1 UNIT OF PRBC DUE TO Hgb OF 6.9 FOR MORNING LABS ON 08/10/23. NOTED THAT NO Hgb REDRAW WAS PERFORMED AFTER BLOOD ADMINISTRATION. NOC PROVIDER DR. DANIELLE NOTIFIED. NO NEW ORDERS AT THIS TIME FOR CBC TO BE DRAWN IN THE AM.
[2023-08-11 02:55] VITALS: BP 136/72
--- NOTE | 2023-08-11 03:56 | NUR ---
ASSUMED CARE OF PT AT 0345. PT RESTING IN BED AT THIS TIME. BED IN LOW POSITION AND CALL LIGHT WITHIN REACH.
[2023-08-11 04:40] LABS: Hematocrit 24.3 % (37.0-53.0); Hemoglobin 8.8 g/dL (13.5-17.5); Mean Corpuscular HGB 31.8 pg (26.0-34.0); Mean Corpuscular HGB Conc 36.2 g/dL (31.5-36.5); Mean Corpuscular Volume 88 fL (80-100); Mean Platelet Volume 12.9 fL (9.1-12.4); NRBC ABSOLUTE 0.02 K/mm3 (0.00-0.02); NRBC Auto 0.1 /100 WBC (0.0-0.2); Platelet Count 188 K/mm3 (150-400); RDW Coefficient Variation 15.2 % (11.7-14.2); Red Blood Cell Count 2.77 M/mm3 (4.30-5.90); White Blood Cell Count 22.85 K/mm3 (4.00-11.30)
[2023-08-11 05:58] LABS: Bun/Creatinine Ratio 35.9 (12.0-20.0); Calcium, Blood 6.9 mg/dL (8.5-10.1); Creatinine, Blood 0.2 mg/dL (0.60-1.20); Potassium, Blood 3.6 mmol/L (3.5-5.5)
--- NOTE | 2023-08-11 06:27 | NUR ---
NO ACUTE CHANGES THIS SHIFT. VITALS WNL FOR PATIENT AT THIS TIME. PAIN MANAGED PER EMAR. BED IN LOW POSITION, CALL LIGHT IN REACH. SEE NURSE CHARTING FOR FURTHER INFORMATION.
[2023-08-11 07:17] VITALS: BP 143/76
--- NOTE | 2023-08-11 08:49 | NUR ---
AM NOTE: PATIENT ALERT AND ORIENTED X3-4. VERY TALKATIVE AND COOPERATIVE WITH CARES. PERRLA, WEARING GLASSES. DENIES NUMBNESS/TINGLING. ABLE TO MOVE ALL EXTREMITIES. LIMITED ROM IN LEFT ELBOW DUE TO HISTORY OF HARDWEAR AND S/P I/D THIS HOSP STAY. PATIENT COMPLAINS OF GENRALIZED PAIN 04/13 THIS AM POINTING OUT HIS RIGHT RIBS/CHEST TUBE, RIGHT GREAT TOE, AND LEFT ELBOW. RIGTH GREAT TOE RED, WARM AND SWOLLEN. PODIATRY CONSULT CALLED IN THIS AM AND THIS RN SPOKE WITH DR. JACKSON. PLAN TO PLACE POST OP SHOE ON RIGHT FOOT AND DR. JACKSON WILL BE IN TO ASSESS. LEFT ELBOW WITH DRESSING AND JOE WRAP, JOE WRAP REDONE THIS AM. PATIENT ON ROOM AIR SATING ABOVE 95%. LUNGS SOUNDING COARSE AND DIM IN BASES. RIGHT/LATERAL CHEST WALL CHEST TUBE IN PLACE. ATRIUM DRY SUCTION WATER SEAL CHEST TUBE TO WATER SEAL. CANISTER SET AT -20 CMH20. NO LEAKS OR CREPITUS NOTED. DRAINAGE SEROSANG. DRESSING C/D/I. EVEN AND UNLABORED RESPIRATIONS. OCCASIONAL MOIST SOUNDING COUGH. SUCTION AT BEDSIDE. PATIENT DENIES PAIN WITH INSPIRATION. PLAN FOR CHEST XRAY THIS AM. TELE SHOWING SR/ST WITH HR 80-110'S. BP STABLE. PPP. DENIES CHEST PAIN/PRESSURE/PALPITATIONS. DENIES ABDOMINAL PAIN/NAUSEA. BOWEL TONES PRESENT. USING URINAL IND. POOR APPEATITE THIS AM, ONLY EATING A FEW BITES OF BREAKFAST. NO SWALLOWING ISSUES NOTED, TAKING PILLS WHOLE WITH WATER. IV ANTIBIOTIC INFUSING THIS AM. IV SITE WNL. DR. SNYDER BY THIS AM, NO NEW ORDERS FOR THIS RN TO PLACE. CALL LIGHT IN REACH. PATIENT RESTING IN BED AT THIS TIME AND DENIES NEEDS.
--- NOTE | 2023-08-11 10:50 | NUR ---
DR. DUBON BY TO SEE PATIENT, THIS RN AT BEDSIDE FOR PROIVDER ROUNDING. CONTINUE TO KEEP CHEST TUBE TO WALL SUCTION AT THIS TIME. NO OTHER ORDERS. PT/OT BY, PATIENT SITTING UP ON EDGE OF BED WITH THEM. LEFT ANKLE SWELLING NOTED. WILL UPDATE PODIATRY ON ROUNDING.
[2023-08-11 11:00] VITALS: BP 152/96
--- NOTE | 2023-08-11 11:37 | NUR ---
BLOOD CULTURES RESULTS CALLED INTO DR. SNYDER
--- NOTE | 2023-08-11 12:17 | NUR ---
PATIENT DOWN TO CT AT THIS TIME. THIS RN PLACED CALL TO EVON SHRESTHA FOR CHEST TUBE TO BE ON WATER SEAL DURING CT SCAN, WILL BE PLACED BACK ON WALL SUCTION ONCE BACK FROM CT.
--- NOTE | 2023-08-11 12:49 | NUR ---
PATIENT BACK FROM CT, CHEST TUBE RESUMED TO WALL SUCTION. PATIENT EATING LUNCH AT THIS TIME, DENIES NEEDS.
[2023-08-11 15:07] VITALS: BP 138/66
--- NOTE | 2023-08-11 16:44 | NUR ---
DR. JACKSON BY TO SEE PATIENT, THIS RN AT BEDSIDE FOR PROVIDER ROUNDING. NO NEW ORDERS FOR THIS RN TO PLACE. DR. SNYDER UPDATED ON PODIATRY CONSULT.
--- NOTE | 2023-08-12 01:10 | NUR ---
ASSUMPTION OF CARE: PATIENT IS ALERT AND ORIENTED X 3-4, CAN BE SLIGHTLY FORGETFUL, CHEST TUBE EVALUATED WITH PREVIOUS NURSE NO CHANGES, REPOSITIONS SELF, USES THE CALL LIGHT APPROPRIATELY, LEFT ELBOW REDRESSED WITH DAY RN TO COVER I&D SITE AND PRIMROSE DRAIN. DENIES CARDIAC CHEST PAIN, DOES HAS PLEURITIC CHEST PAIN THAT IS AT CHEST TUBE INSERTION SITE, SEROSANGINOUS DRAINAGE IN CHEST TUBE. RECENT BREATHING TREATMENT, RT EVALUATED CHEST TUBE WELL.
[2023-08-12 03:29] VITALS: BP 144/81
--- NOTE | 2023-08-12 03:42 | NUR ---
EOS: PATIENT HAS BARELY SLEPT BUT A COUPLE HOURS, STILL ALERT AND ORIENTED X3/4, PATIENT HAS ACTUALLY ACCIDENTALY DISCONTINUED HIS HARSHAL DRAIN, WILL PASS ONTO DAY RN TO INFORM SURGEON WITH AM ROUNDS. SITE CDI DRESSING CHANGE PREFORMED, PATIENT DC'D BY ACCIDENT WHILE SLEEPING, CT DRAINAGE SEEMS TO BE MILDLY MORE, THAN FOR DAY. REINFORCED DRESSING WITH ADHESIVE TAPE AT TIME, Q2-4 HOUR REEVALUATIONS. RT EVALUATES WITH BREATHING TREATEMENTS. RA SPO2 94%. 1 X DOSE OF IV ABX GIVEN. AFTER ADMINISTRATION PATIENT ENDORESED SOME MILD NAUSEA, TOLERABLE AT THIS TIME, HE BELIEVES TO BE FROM PAIN, PAIN TREATED PER MAR. WILL SEE IF IMPROVEMENT, PATIENT ALSO HAD A VERY LARGE AMOUNT OF SNACKS AND DRINKS, ENCOURAGED A DECREASE WHILE NAUSEATED, COOPERATIVE WITH CARE. RIGHT GREAT TOE IS QUITE LARGE, WILL EVALUATE WITH DAY RN TO MONITOR FOR SIZE CHANGE.
[2023-08-12 04:39] LABS: Hematocrit 24.8 % (37.0-53.0); Hemoglobin 8.8 g/dL (13.5-17.5); Mean Corpuscular HGB 31.7 pg (26.0-34.0); Mean Corpuscular HGB Conc 35.5 g/dL (31.5-36.5); Mean Corpuscular Volume 89 fL (80-100); RDW Coefficient Variation 15.1 % (11.7-14.2); RDW Standard Deviation 49.2 fL (35.1-46.3); Red Blood Cell Count 2.78 M/mm3 (4.30-5.90); White Blood Cell Count 23.84 K/mm3 (4.00-11.30)
[2023-08-12 04:40] LABS: Mean Platelet Volume 13.3 fL (9.1-12.4); Platelet Count 208 K/mm3 (150-400)
[2023-08-12 05:01] LABS: Bun/Creatinine Ratio 21.1 (12.0-20.0); Calcium, Blood 7.8 mg/dL (8.5-10.1); Creatinine, Blood 0.38 mg/dL (0.60-1.20); Potassium, Blood 3.8 mmol/L (3.5-5.5)
[2023-08-12 07:13] VITALS: BP 142/77
--- NOTE | 2023-08-12 07:36 | NUR ---
AM NOTE: PATIENT ALERT AND ORIENTED. STATES HE WAS ABLE TO GET A FEW HOURS OF SLEEP LAST NIGHT AND IS FEELING BETTER THIS AM. WEARING GLASSES, PERRLA. DENIES NUMBNESS/TINGLING. TURNING AND MOVING SELF IN BED. CHEST TUBE TO RIGHT LATERAL CHEST WALL. CHEST TUBE - ATRIUM OASIS DRY SUCTION WATER SEAL CANISTER TO WALL SUCTION. CANISTER SET TO [id number]. NO LEAKS OR CREPITIS NOTED. PATIENT COMPLAINS OF INTERMIT PLEURETIC CHEST PAIN AT CHEST TUBE INSERTION SITE. DRESSING REMAINS C/D/I. CHEST TUBE DRAINAGE IS CLEAR AND SEROSANG. ON ROOM AIR SATING ABOVE 95%. EVEN AND UNLABORED RESPIRATIONS. LUNGS SOUNDING COARSE AND DIM IN BASES. OCCASIONAL HARSH/LOOSE SOUNDING COUGH. TELE SHOWING SR WITH HR 90'S. SBP 140'S THIS AM. DENIES CARDIAC CHEST PAIN/PRESSURE/PALPITATIONS. PPP. EDEMA NOTED IN LEFT ELBOW AND LEFT LATERAL ANKLE. SCD ON LEFT CALF. IV SALINE LOCKED. DENIES ABDOMINAL PAIN/NAUSEA. USING URINAL TO VOID. BOWEL TONES PRESENT. PATIENT REFUSING ATTENDS. EATING WNL. SKIN OVERALL DUSKY WITH SCATTERED EXCORIATIONS/BRUISES. RIGHT GREAT TOE REMAINS RED, WARM AND SWOLLEN. PATIENT NOT GETTING UP AT THIS TIME, BUT POST OP SHOE AT BEDSIDE FOR WHEN PATIENT IS READY TO GET UP OUT OF BED. LEFT ELBOW ALSO REMAINS RED AND SWOLLEN. PER NOC SHIFT HARSHAL DRAINED REMOVED BY PATIENT WHILE SLEEPING. DRESSING CHANGED THIS AM, CLEANED WITH WOUND WASH AND STERILE GAUZE. CALL LIGHT IN REACH. PATIENT DENIES NEEDS AT THIS TIME. RESTING IN BED WATCHING TV AND DRINKING TEA.
[2023-08-12 09:46] LABS: Percent Saturation 7.8 % (20.0-50.0)
--- NOTE | 2023-08-12 10:34 | NUR ---
DR. DUBON BY TO SEE PATIENT. NO NEW ORDERS, KEEP CHEST TUBE AT CURRENT SETTINGS AND WALL SUCTION.
--- NOTE | 2023-08-12 11:00 | NUR ---
PATIENT VERY PAINFUL AFTER TURNING TO REINFORCE CHEST TUBE DRESSING. DR. SIMS CALLED AND ORDERS FOR 1 MG DILAUDID IV X1 NOW. ORDERS IN PLACE. THIS RN ALSO UPDATED DR. SIMS ON DR. SHIRLEY BEING DIRECTOR OF SCIENCE AND PLANS TO SEE PATIENT THIS AFTERNOON TO CHECK ON ELBOW.
[2023-08-12 11:52] VITALS: BP 128/69
--- NOTE | 2023-08-12 14:43 | NUR ---
DR. SHIRLEY BY TO SEE PATIENT NO NEW ORDERS FOR THIS RN TO PLACE. PATIENT DENIES PAIN AT THIS TIME, WATCHING TV. CHEST TUBE REMAINS WNL.
[2023-08-12 15:21] VITALS: BP 123/67
--- NOTE | 2023-08-12 17:35 | NUR ---
SHIFT SUMMARY NO ACUTE CHANGES, SEE PREVIOUS NOTES FOR UPDATES THROUGHOUT THE DAY. PATIENT COMPLAINING OF INTERMIT PAIN, MANAGED WELL WITH EMAR MEDICATIONS. REMAINS SR/ST ON TELE. CONTINUES ON ROOM AIR SATING ABOVE 95%. NO CHANGES TO CHEST TUBE. 60 ML OUTPUT OF SEROUS FLUID FROM CHEST TUBE THIS SHIFT. IV ABX INFUSED. CALL LIGHT IN REACH. PATIENT EATING DINNER AT THIS TIME.
[2023-08-12 20:28] VITALS: BP 124/66
--- NOTE | 2023-08-12 23:08 | NUR ---
ASSUMPTION OF CARE: NO CHANGE FROM END OF SHIFT, SLIGHT IMPROVEMENT, STILL DENYING CARDIAC CHEST PAIN, PRESSURE, MILD SOB. STILL COUGHING WITH SPUTUM PRODUCTION. VSS, AFEBRILE. PATIENT HAD INCREASED PAIN FOR DAY RN, 1 X DILAUDED HELPED WELL, FOR DAY RN, WILL ASK IF NEEDED FOR PAIN CONTROL AGAIN. ZOFRAN GIVEN BY RN HELPED WITH NAUSEA. NORCO STILL GIVEN TO PATIENT, PATIENT IS COOPERATIVE WITH CARE A-O X 4.
[2023-08-13] VITALS (15 sets, daily range): BP systolic 108–137; BP diastolic 53–87
[2023-08-13 04:17] LABS: Hemoglobin 7.6 g/dL (13.5-17.5); Mean Corpuscular HGB 31.9 pg (26.0-34.0); Mean Corpuscular HGB Conc 34.5 g/dL (31.5-36.5); Mean Corpuscular Volume 92 fL (80-100); Mean Platelet Volume 12.4 fL (9.1-12.4); Platelet Count 253 K/mm3 (150-400); RDW Coefficient Variation 15.5 % (11.7-14.2); RDW Standard Deviation 51.7 fL (35.1-46.3); Red Blood Cell Count 2.38 M/mm3 (4.30-5.90)
[2023-08-13 04:19] LABS: BASOPHILS ABSOLUTE AUTO 0.04 K/mm3 (0.00-0.23); BASOPHILS PERCENT AUTO 0 % (0-2); EOSINOPHILS ABSOLUTE AUTO 0.04 K/mm3 (0.00-0.68); EOSINOPHILS PERCENT AUTO 0 % (0-6); IMMATURE GRAN ABSOLUTE AUTO 0.13 K/mm3 (0.00-0.10); IMMATURE GRAN PERCENT AUTO 1 % (0-1); LYMPHOCYTES PERCENT AUTO 12 % (21-46); MONOCYTES ABSOLUTE AUTO 1.07 K/mm3 (0.16-1.47); MONOCYTES PERCENT AUTO 5 % (4-13); NEUTROPHILS ABSOLUTE AUTO 17.23 K/mm3 (1.96-9.15); NEUTROPHILS PERCENT AUTO 82 % (41-73); White Blood Cell Count 21.01 K/mm3 (4.00-11.30)
[2023-08-13 04:44] LABS: Albumin, Blood 1.4 g/dL (3.4-5.0); Albumin/Globulin Ratio 0.4 (0.8-1.8); Bilirubin, Total 0.3 mg/dL (0.1-1.0); Bun/Creatinine Ratio 24.3 (12.0-20.0); Calcium, Blood 7.7 mg/dL (8.5-10.1); Creatinine, Blood 0.33 mg/dL (0.60-1.20); Potassium, Blood 3.7 mmol/L (3.5-5.5); Total Protein, Blood 5.4 g/dL (6.4-8.2)
--- NOTE | 2023-08-13 08:53 | NUR ---
AM NOTE: PATIENT ALERT AND ORIENTED. WEARING HIS GLASSES. IN A GREAT MOOD THIS MORNING STATING HE SLEPT WELL LAST NIGHT AND IS GOING TO HAVE A GREAT DAY TODAY. ABLE TO MOVE SELF AROUND IN BED. DENIES NUMBNESS/TINGLING. CHEST TUBE REMAINS ON RIGHT LATERAL CHEST WALL TO WALL SUCTION. CANISTER: ATRIUM OASIS DRY SUCTION WATER SEAL SET TO -[id number]. SEROUS DRAINAGE. DRESSING C/D/I. NO LEAKS OR CREPITUS NOTED. PATIENT DENIES PAIN RELATED TO CHEST TUBE THIS AM. EVEN AND UNLABORED REPSIRATIONS. OCCASIONAL MOIST/HARSH COUGH. ON ROOM AIR SATING ABOVE 95%. TELE SHOWING SR WITH HR 80'S. SBP 120'S. DENIES CHEST PAIN/PRESSURE/PALPITATIONS. MILD EDEMA NOTED TO LEFT ANKLE AND LEFT ELBOW. SCD TO LEFT LEG. DENIES ABDOMINAL PAIN/NAUSEA THIS AM. EATING AND VOIDING WNL. USING URINAL IN BED. BOWEL TONES PRESENT. LEFT ELBOW DRESSED WITH GAUZE, ABD PAD AND JOE WRAP. SITE CLEANED AND REDRESSED THIS AM. RIGHT TOE REMAINS RED, SWOLLEN AND PAINFUL. IV ABX INFUSING. CALL LIGHT IN REACH. PATIENT EATING BREAKFAST IN BED AND DENIES NEEDS AT THIS TIME.
--- NOTE | 2023-08-13 14:08 | NUR ---
DR. DUBON AT BEDSIDE TO COMPLETE RIGHT THORACENTESIS. THIS RN AT BEDSIDE DURING PROCEDURE. FLUID SENT TO LAB PER DR. DUBON ORDERS BY THIS RN. POST CHEST XRAY COMPLETED. CHEST TUBE REMAINS IN PLACE WITH CHEST TUBE CANISTER TO WALL SUCTION PER DR. DUBON ORDERS. POST VITALS IN PROGRESS AND STABLE. IRON INFUSING. CALL LIGHT IN REACH.
[2023-08-13 14:15] LABS: pH, Body Fluid 7.5
[2023-08-13 14:17] LABS: Albumin, Body Fluid 0.9 g/dL; Triglycerides, Body Fluid 47 mg/dL
[2023-08-13 14:21] LABS: Automated BF WBC Count 2.723 K/mm3 (0-999)
[2023-08-13 14:29] LABS: Body Fluid WBC Count 2723 /mm3 (0-999)
[2023-08-13 14:49] LABS: Glucose, Body Fluid <1 mg/dL; Lactate Dehydrogenase, Body Fl 6316 U/L
[2023-08-13 15:43] LABS: RBC Count, Body Fluid 480 /mm3 (0-0)
[2023-08-13 15:57] LABS: Appearance, Body Fluid Hazy (Clear); Color, Body Fluid Yellow (None-Yellow); Total Cell Count, Body Fluid 100
--- NOTE | 2023-08-13 18:11 | NUR ---
SHIFT SUMMARY: NO ACUTE CHANGES. PATIENT CONTINUES TO BE STABLE POST THORACENTESIS. POST VITALS COMPLETED. REMAINS ON ROOM AIR. CHEST TUBE CONTINUES TO SUCTION. TELE CONTINUES TO SHOW SR. BP STABLE. INTERMIT RIGHT LATERAL CHEST PAIN AND LEFT ELBOW PAIN, MEDICATED PER EMAR. IV ABX AND IRON INFUSED THIS SHIFT. 2 SMALL BOWEL MOVEMENTS. CONTINUES TO USE URINAL. CALL LIGHT IN REACH. PATIENT DENIES NEEDS.
--- NOTE | 2023-08-13 22:46 | NUR ---
ONLY CHANGES FROM PREVIOUS SHIFT WERE THORA RIGHT SIDE, IMPROVED PAIN MANAGEMENT AT THIS TIME. PATIENT HAVING MORE BOWEL MOVEMENTS WITH MIRALAX IN SYSTEM FROM LAST SHIFT WITH PATIENT. PATIENT DENIES INCREASED NEED. PATIENT GREGORY CARDIAC CHEST PAIN PRESSURE OR SOB. PATIENT IS NOW SURGICAL, CALLS APPROPRIATELY, COOPERATIVE PLAN FOR THORA TOMORROW, SPO2 >96% ON RA. OOOO NPO FOR THORA. LEFT SIDE. WILL CONTINUE TO MONITOR
[2023-08-14 03:33] VITALS: BP 127/74
[2023-08-14 05:27] VITALS: BP 129/76
[2023-08-14 07:18] VITALS: BP 129/75
--- NOTE | 2023-08-14 07:30 | NUR ---
SHIFT SUMMARY NOC/ASSUMPTION OF CARE. PT ARRIVED TO SURGICAL FLOOR ROOM 211 FROM THE PCU AT 0505. PT ARRIVED VIA BED AND TRANSFERED VIA SLIDER SHEET. PT CHEST TUBE CONNECTED TO SUCTION, DRAINING BELOW CHEST LEVEL, AND FREE OF KINKS. PT ORIENTED TO ROOM AND CALL LIGHT. PT ON TELE AND WAS IN SINUS RHYTHM, 83 BPM VIA PETER SHRUTI'S REPORT. PT HAS GOOD PULSES IN ALL EXTREMITIES AND A C/D/I DRESSING ON LEFT ELBOW. PT RESTED WITH EYES CLOSED AND CALL LIGHT IN REACH.
--- NOTE | 2023-08-14 11:14 | NUR ---
Pt. is awake in bed and welcomes my visit. Pt. is pleasant and rapport is established. Facilitated a lengthy life review. Listened in emapthy and interest. Pt. displays evidence of being engaged, but also verbalized that he might not have good support at home. Pt. verbalized looking forward to going to [facility] for rehab. Prayed with Pt. Pt. verbalized gratitude for the spiritual care visit and welcomed this manager molecular to return.
[2023-08-14 14:23] VITALS: BP 128/78
--- NOTE | 2023-08-14 18:28 | NUR ---
SHIFT SUMMARY NO ACUTE CHANGES. PLEASANT & COOPERATIVE. PLAN FOR PICC LINE PLACEMENT TOMORROW. ON RA T/O SHIFT w/ NO CHANGES IN WORK OF BREATHING OR CHEST TUBE.
[2023-08-14 20:10] VITALS: BP 127/83
[2023-08-15 00:04] VITALS: BP 125/70
[2023-08-15 02:07] VITALS: BP 127/72
--- NOTE | 2023-08-15 04:37 | NUR ---
SHIFT SUMMARY NO ACUTE CHANGES. PT RESTED WELL T/O SHIFT. INDEPENDENTLY REPOSITIONS SELF IN BED. CHEST TUBE TO RIGHT LATERAL REMAINS PATENT TO WALL SUCTION. MINIMAL CLEAR YELLOW DRAINAGE OUT. SATS STABLE ON RA AND PT DENIES SOB. USES URINAL INDEP. IV ABX PER ORDERS. 2 NORCO FOR PAIN PRN. USES CALL LIGHT APPROPRIATELY.
[2023-08-15 07:14] VITALS: BP 133/78
--- NOTE | 2023-08-15 08:20 | NUR ---
CHEST TUBE FOUND OUT IN ROOM. OCCLUSIVE DRSG & 4x4 GAUZE PLACED OVER. NO CHANGES IN WORK OF BREATHING. O2 SATS WNL. LUNG SOUNDS DIM IN BASES. MOIST COUGH. DR MONROY NOTIFIED.
[2023-08-15 15:23] VITALS: BP 112/66
--- NOTE | 2023-08-15 18:54 | NUR ---
SHIFT SUMMARY SINCE CHEST TUBE WAS ACCIDENTLY REMOVED, PT HAS HAD NO CHANGE IN WORK OF BREATHING. VSS ON RA. WAS UP TO SHOWER. PLEASANT & COOPERATIVE.
[2023-08-15 19:29] VITALS: BP 124/74
[2023-08-16 04:14] VITALS: BP 137/73
--- NOTE | 2023-08-16 05:40 | NUR ---
SHIFT SUMMARY NO ACUTE CHANGES. PT HAD LARGE BM AT START OF SHIFT. 1 SBA USING FWW WHEN OOB. R LATERAL CHEST TUBE DRESSING REMAINS CDI. SATS STABLE ON RA AND PT DENIES SOB. 2 NORCO FOR PAIN MANAGEMENT. IV ABX PER ORDERS. USES CALL LIGHT APPROPRIATELY.
[2023-08-16 07:47] VITALS: BP 142/72
[2023-08-16 14:22] VITALS: BP 149/79
[2023-08-16 19:12] VITALS: BP 119/74
--- NOTE | 2023-08-16 19:29 | NUR ---
SUMMARY: NO ACUTE CHANGE TODAY. VSS, A/O. PT HAS DENIED SOB AND SP02 HAS BEEN STABLE ON RA. OLD CHEST TUBE DRAIN SITE CDI TO R CHEST WALL. PT GIVEN IV ANTIBIOTICS THROUGH PICC LINE. SEE ASSISTIVE TECHNOLOGY TRAINER NOTES FOR DC PLAN. PT GIVEN PAIN MEDICATIONS Q4, PRN. NO SAFETY CONCERNS, PT USING CALL LIGHT. REPORT PASSED TO CONY SHETTY.
[2023-08-17 04:00] VITALS: BP 125/81
[2023-08-17 07:32] VITALS: BP 138/70
[2023-08-17 13:55] VITALS: BP 138/70
[2023-08-17 15:45] VITALS: BP 138/76
--- NOTE | 2023-08-17 17:00 | NUR ---
TRANSFER REPORT CALLED TO INOCENCIO/[facility]va [facility] [phone]. PT A&OX4, VSS/RA, RONNI PO, VOIDING/URINAL AND BMs, AMB SBA FWW, PAIN MANAGED WITH NORCO 10 MG Q4P, PICC LINE RUE, SHOWERED TODAY. TELEPHONE CALL TO TAMAR JULIEN WITH CONTACT INFORMATION FOR [facility] RM [id number].
== END 2023-08-17 16:36 | disposition short-term general hospital (02) | DRG 853 ==
LOC: ER 22:11 → PCU 22:12 → MEDS 22:12 → SURS 22:12 → MEDS 22:12 → PCU 08-09 11:47 → SURS 08-14 05:02
PROVIDERS: Internal Medicine; Internal Medicine Critical Care Medicine; Orthopaedic Surgery; Student in an Organized Health Care Education/Training Program; ADMIT Internal Medicine
PROC: 3E03329 Introduction of Other Anti-infective into Peripheral Vein, Percutaneous Approach (ICD-10-PCS; 2023-08-05)
PROC: 0W993ZX Drainage of Right Pleural Cavity, Percutaneous Approach, Diagnostic (ICD-10-PCS; 2023-08-08)
PROC: 0RBM0ZZ Excision of Left Elbow Joint, Open Approach (ICD-10-PCS; principal; 2023-08-08 15:30)
PROC: 0W9900Z Drainage of Right Pleural Cavity with Drainage Device, Open Approach (ICD-10-PCS; 2023-08-09)
DX: A41.9 Sepsis, unspecified organism (principal); E43 Unspecified severe protein-calorie malnutrition; J86.9 Pyothorax without fistula; J18.9 Pneumonia, unspecified organism; M00.9 Pyogenic arthritis, unspecified; T84.59XA Infection and inflammatory reaction due to other internal joint prosthesis, initial encounter; S27.0XXA Traumatic pneumothorax, initial encounter; L02.413 Cutaneous abscess of right upper limb; E87.1 Hypo-osmolality and hyponatremia; I47.10 Supraventricular tachycardia, unspecified; J90 Pleural effusion, not elsewhere classified; R64 Cachexia; J44.0 Chronic obstructive pulmonary disease with (acute) lower respiratory infection; R65.20 Severe sepsis without septic shock; Y83.8 Other surgical procedures as the cause of abnormal reaction of the patient, or of later complication, without mention of misadventure at the time of the procedure; F17.210 Nicotine dependence, cigarettes, uncomplicated; E88.09 Other disorders of plasma-protein metabolism, not elsewhere classified; F03.90 Unspecified dementia, unspecified severity, without behavioral disturbance, psychotic disturbance, mood disturbance, and anxiety; S22.49XD Multiple fractures of ribs, unspecified side, subsequent encounter for fracture with routine healing; S27.0XXD Traumatic pneumothorax, subsequent encounter; W18.30XD Fall on same level, unspecified, subsequent encounter; S92.911D Unspecified fracture of right toe(s), subsequent encounter for fracture with routine healing; D64.9 Anemia, unspecified; Z59.02 Unsheltered homelessness; E83.51 Hypocalcemia; B95.62 Methicillin resistant Staphylococcus aureus infection as the cause of diseases classified elsewhere; F15.10 Other stimulant abuse, uncomplicated; Z88.8 Allergy status to other drugs, medicaments and biological substances; F10.20 Alcohol dependence, uncomplicated; R29.6 Repeated falls; M10.9 Gout, unspecified; Z87.19 Personal history of other diseases of the digestive system; Z79.899 Other long term (current) drug therapy; Z11.52 Encounter for screening for COVID-19; Z68.20 Body mass index [BMI] 20.0-20.9, adult
CPT/HCPCS: 0241U; 32551; 32555; 36415; 36430; 36569; 71045; 71046; 71250; 71270; 73630; 80048; 80053; 80202; 82042; 82728; 82945; 83540; 83550; 83605; 83615; 83735; 83880; 83986; 84145; 84157; 84478; 85025; 85027; 85610; 85651; 85730; 86140; 86850; 86900; 86901; 86923; 87040; 87070; 87075; 87077; 87147; 87186; 87205; 88108; 88305; 89051; 93005; 93010; 93306; 94640; 94664; 94760; 94762; 96361; 96365; 96367; 96375; 97110; 97162; 97166; 97530; 97535; 99285-25; A9270; C1751; C9113; J0456; J0690; J0696; J1100; J1170; J1650; J1750; J1885; J2250; J2270; J2405; J2704; J3010; J3370; J7030; J7050; J7120; J7512; P9016; Q9967

== ENCOUNTER 2024-03-30 22:46 | Inpatient (IN) | payer OTHER ==
[~2024-03-30] VITALS: Ht 172.7 cm; Wt 51.9 kg
[~2024-03-30 22:46] MED LIST changes: +METO25ER PO
[2024-03-30] MEDS ORDERED: LOSARTAN POTASS25 M2 PO (23:20)
[2024-03-30] MEDS ORDERED: Ketorolac Tromethamine 30mg Vial IV ONE (23:30)
[2024-03-30] MEDS ORDERED: Acetaminophen 500 MG Tab PO ONE (23:30)
[2024-03-30 23:33] LABS: BASOPHILS ABSOLUTE AUTO 0.04 K/mm3 (0.00-0.23); BASOPHILS PERCENT AUTO 0 % (0-2); EOSINOPHILS ABSOLUTE AUTO 0.02 K/mm3 (0.00-0.68); EOSINOPHILS PERCENT AUTO 0 % (0-6); Hematocrit 26.8 % (37.0-53.0); Hemoglobin 9.4 g/dL (13.5-17.5); IMMATURE GRAN ABSOLUTE AUTO 0.14 K/mm3 (0.00-0.10); IMMATURE GRAN PERCENT AUTO 1 % (0-1); LYMPHOCYTES ABSOLUTE AUTO 2.36 K/mm3 (0.84-5.20); LYMPHOCYTES PERCENT AUTO 14 % (21-46); MONOCYTES ABSOLUTE AUTO 1.15 K/mm3 (0.16-1.47); MONOCYTES PERCENT AUTO 7 % (4-13); Mean Corpuscular HGB Conc 35.1 g/dL (31.5-36.5); Mean Corpuscular Volume 91 fL (80-100); Mean Platelet Volume 9.9 fL (9.1-12.4); NEUTROPHILS PERCENT AUTO 79 % (41-73); Platelet Count 606 K/mm3 (150-400); RDW Coefficient Variation 14.8 % (11.7-14.2); RDW Standard Deviation 49.2 fL (35.1-46.3); Red Blood Cell Count 2.94 M/mm3 (4.30-5.90); White Blood Cell Count 17.31 K/mm3 (4.00-11.30)
[2024-03-30] MEDS ORDERED: Methocarbamol 500 MG Tab PO ONE (23:35)
[2024-03-30] MEDS ORDERED: Methyl Salicylate/Menth/Camph 57 GM TUBE TOP ONE (23:35)
[2024-03-30 23:45] LABS: Albumin, Blood 2.2 g/dL (3.4-5.0); Albumin/Globulin Ratio 0.4 (0.8-1.8); Bilirubin, Total 0.3 mg/dL (0.1-1.0); Bun/Creatinine Ratio 12.8 (12.0-20.0); Calcium, Blood 8.2 mg/dL (8.5-10.1); Creatinine, Blood 0.47 mg/dL (0.60-1.20); Globulin, Blood 5.5 g/dL (2.2-4.0); Potassium, Blood 3.7 mmol/L (3.5-5.5); Total Protein, Blood 7.7 g/dL (6.4-8.2)
[2024-03-31] MEDS ORDERED: Morphine Sulfate 4 MG/1 ML Injection IV ONE (02:05)
[2024-03-31] MEDS ORDERED: Acetaminophen 325 MG TABLET PO PRN (02:20)
[2024-03-31] MEDS ORDERED: FentaNYL Citrate 50 MCG/ML 2 ML Injection IV PRN (02:20)
[2024-03-31] MEDS ORDERED: Ondansetron HCl 2 MG / ML 2ML Vial IV PRN (02:20)
[2024-03-31] MEDS ORDERED: Ketorolac Tromethamine 30mg Vial IV PRN (02:25)
[2024-03-31 02:30] LABS: Source, Urine Clean Catch
[2024-03-31 02:32] LABS: Bilirubin, Urine Neg (Neg); Blood, Urine 3+ (Neg); Glucose Qualitative, Urine Neg (Neg); Ketones, Urine Neg (Neg); Leukocyte Esterase, Urine 1+ (Neg); Nitrite, Urine Pos (Neg); Protein, Urine 1+ (Neg); Urobilinogen, Urine NORM (Normal)
[2024-03-31] MEDS ORDERED: ChlordiazePOXIDE 25 MG Cap PO PRN (02:35)
[2024-03-31] MEDS ORDERED: NS 1,000 ML IV ONE (02:35)
[2024-03-31] MEDS ORDERED: LORazepam 2 MG/ML 1ML Injection IV PRN (02:35)
[2024-03-31] MEDS ORDERED: Albumin (Human) 25gm/100ml 100 ML IV ONE (02:40)
[2024-03-31 02:41] LABS: Appearance, Urine Hazy (Clear); Color, Urine Yellow (P-Yellow)
[2024-03-31 02:42] LABS: Amorphous Mod (0-Heavy); Bacteria Mod /hpf; Red Blood Cells, Urine 0-2 /hpf (0-2); Squamous Epithelial Cells Rare /hpf (Few)
[2024-03-31 04:06] LABS: Hematocrit 23.9 % (37.0-53.0); Hemoglobin 8.3 g/dL (13.5-17.5); Mean Corpuscular HGB 31.6 pg (26.0-34.0); Mean Corpuscular HGB Conc 34.7 g/dL (31.5-36.5); Mean Corpuscular Volume 91 fL (80-100); Mean Platelet Volume 9.8 fL (9.1-12.4); Platelet Count 519 K/mm3 (150-400); RDW Standard Deviation 49.6 fL (35.1-46.3); Red Blood Cell Count 2.63 M/mm3 (4.30-5.90)
[2024-03-31 04:08] LABS: BASOPHILS ABSOLUTE AUTO 0.04 K/mm3 (0.00-0.23); BASOPHILS PERCENT AUTO 0 % (0-2); EOSINOPHILS ABSOLUTE AUTO 0.05 K/mm3 (0.00-0.68); EOSINOPHILS PERCENT AUTO 0 % (0-6); IMMATURE GRAN PERCENT AUTO 1 % (0-1); LYMPHOCYTES ABSOLUTE AUTO 2.25 K/mm3 (0.84-5.20); LYMPHOCYTES PERCENT AUTO 16 % (21-46); MONOCYTES ABSOLUTE AUTO 1.21 K/mm3 (0.16-1.47); MONOCYTES PERCENT AUTO 8 % (4-13); NEUTROPHILS PERCENT AUTO 75 % (41-73); White Blood Cell Count 14.35 K/mm3 (4.00-11.30)
[2024-03-31 04:32] LABS: Albumin, Blood 2.4 g/dL (3.4-5.0); Albumin/Globulin Ratio 0.5 (0.8-1.8); Bilirubin, Total 0.4 mg/dL (0.1-1.0); Bun/Creatinine Ratio 12.5 (12.0-20.0); Calcium, Blood 8.1 mg/dL (8.5-10.1); Creatinine, Blood 0.48 mg/dL (0.60-1.20); Globulin, Blood 4.8 g/dL (2.2-4.0); Potassium, Blood 3.9 mmol/L (3.5-5.5); Total Protein, Blood 7.2 g/dL (6.4-8.2)
[2024-03-31 08:20] VITALS: BP 117/80
[2024-03-31] MEDS ORDERED: Thiamine HCl 100 MG in NS 50 ML IV SCH (09:00)
[2024-03-31] MEDS ORDERED: Enoxaparin 40 MG/0.4 ML SYR SC SCH (09:00)
--- NOTE | 2024-03-31 09:52 | NUR ---
ADMISSION NOTE PATIENT ADMITTED TO ROOM 330 AT 0817. ADMISSION ASSESSMENT COMPLETE, PATIENT COMPLAINING OF LOWER BACK PAIN AND LEFT ELBOW PAIN 03/13, FENTANYL GIVEN PER NOV. PATIENT A/OX4, ORIENTED TO ROOM AND CALL LIGHT. BED ALARM IN PLACE DUE TO RECENT FALL. PATIENT STATES HE IS HOUSELESS AND LIVE ON [facility] [place] [facility]. STATES HE DOES HAVE FAMILY, BUT HE DOESN'T WANT THEM INVOLVED WITH HIS CARE. TELEMETRY IN PLACE RUNNING NORMAL SINUS, HEART RATE IN 80s. PATIENT NOTED WITH LEFT ELBOW WOUND, ARM SWOLLEN AND EDEMETOUS, SMALL OPEN WOUND WITH PURULENT DRAINAGE. PICTURES OBTAINED FOR DOCUMENTATION. NO OTHER CONCERNS AT THIS TIME.
[2024-03-31] MEDS ORDERED: LORazepam 2 MG/ML 1ML Injection IV ONE (13:00)
[2024-03-31] MEDS ORDERED: HYDROmorphone HCl/Pf 1MG SYR IV ONE (13:00)
--- NOTE | 2024-03-31 13:21 | NUR ---
PATIENT UNABLE TO TOLERATE LYING FLAT FOR MRI D/T LOWER BACK PAIN. PATIENT WAS MEDICATED PRIOR TO PROCEDURE. MD NOTIFIED AND 1 TIME ORDERS FOR ATIVAN AND DILAUDID PLACED FOR 1300. CALLED MRI TO ENSURE AVAILABILITY PRIOR TO GIVING MEDICATIONS. MRI STATES THEY WILL TAKE THE PATIENT AROUND 1500 FOR IMAGING, IV MEDICATIONS WILL BE ADMINISTERED PRIOR TO IMAGING.
[2024-03-31 15:06] VITALS: BP 105/66
[2024-03-31 15:14] VITALS: BP 90/69
[2024-03-31 16:50] VITALS: BP 106/67
--- NOTE | 2024-03-31 17:12 | NUR ---
SHIFT SUMMARY PATIENT ADMITTED THIS AM AT 0817. A/OX4, ABLE TO MAKE NEEDS KNOWN. PATIENT COMPLAINS OF CONASTANT LOWER BACK PAIN R/T RECENT FALL. PRN FENTANYL GIVEN PER NOV. ALSO NOTED TO HAVE ABSCESS ON LEFT ELBOW DRAINING PURULENT DRAINAGE, DRESSING PLACED TODAY. MRI OBTAINED FOR LOWER BACK PAIN, PATIENT NEEDING ONE TIME DOSE OF ATIVAN AND DILAUDID PRIOR TO PROCEDURE. PATIENT'S SBP DECREASED TO 90s, BUT SINCE HAS IMPROVED. CIWA SCORE OF 0 THIS AM. XRAY WAS ALSO OBTAINED OF HIS L ELBOW. NO OTHER CONCERNS AT THIS TIME.
[2024-03-31 19:36] VITALS: BP 113/68
[2024-03-31] MEDS ORDERED: Nicotine 21 MG PATCH TOP SCH (20:05)
[2024-03-31] MEDS ORDERED: Calcium Carbonate 500 MG Tab Chew PO PRN (22:00)
--- NOTE | 2024-04-01 01:07 | NUR ---
NOTIFIED BY TELE THAT PT HAD 6 SECOND RUN OF SVT @ 175 BPM. PT ASYMPTOMATIC. HOSPITALIST NOFITIED AND NO FURTHER ORDERS GIVEN.
[2024-04-01 02:26] VITALS: BP 135/72
--- NOTE | 2024-04-01 05:54 | NUR ---
SHIFT SUMMARY NOC PT A/O X 4. PLEASANT AND COOPERATIVW WITH CARE. VSS. PAIN FROM COMPRESSION FX IN LOWER BACK BEING MANAGED PER EMAR. WEEPING OPEN BLISTER ON L ELBOW HAS MEPILEX IN PLACE C/D/I. CIWA SCORED 0 WHILE MED PASS PERFORMED. PT TOOK SHOWER AT BEGINNING OF SHIFT. ON TELE SINUS RHYTHM IN 90'S, BUT HAD ONE EPISODE OF SVT @ 175 FOR 6 SECONDS AND WHEN CHECKED PT WAS ASYMPTOMATIC. HOSPITALIST NOTIFIED AND NO NEW ORDERS GIVEN. PT ALSO HAS NICOTINE PATCH IN PLACE ON L SHOULDER. PT CURRENTLY RESTING WITH BED IN LOWEST POSITION, AND CALL LIGHT WITHIN REACH.
[2024-04-01 07:17] VITALS: BP 123/61
[2024-04-01 08:33] LABS: BASOPHILS ABSOLUTE AUTO 0.05 K/mm3 (0.00-0.23); BASOPHILS PERCENT AUTO 1 % (0-2); EOSINOPHILS ABSOLUTE AUTO 0.09 K/mm3 (0.00-0.68); EOSINOPHILS PERCENT AUTO 1 % (0-6); Hematocrit 25.5 % (37.0-53.0); Hemoglobin 8.7 g/dL (13.5-17.5); IMMATURE GRAN ABSOLUTE AUTO 0.05 K/mm3 (0.00-0.10); IMMATURE GRAN PERCENT AUTO 1 % (0-1); LYMPHOCYTES ABSOLUTE AUTO 1.81 K/mm3 (0.84-5.20); LYMPHOCYTES PERCENT AUTO 18 % (21-46); MONOCYTES ABSOLUTE AUTO 0.91 K/mm3 (0.16-1.47); MONOCYTES PERCENT AUTO 9 % (4-13); Mean Corpuscular HGB 31.4 pg (26.0-34.0); Mean Corpuscular HGB Conc 34.1 g/dL (31.5-36.5); Mean Corpuscular Volume 92 fL (80-100); Mean Platelet Volume 9.7 fL (9.1-12.4); NEUTROPHILS ABSOLUTE AUTO 7.32 K/mm3 (1.96-9.15); NEUTROPHILS PERCENT AUTO 72 % (41-73); Platelet Count 541 K/mm3 (150-400); RDW Coefficient Variation 15.1 % (11.7-14.2); RDW Standard Deviation 51.2 fL (35.1-46.3); Red Blood Cell Count 2.77 M/mm3 (4.30-5.90); White Blood Cell Count 10.23 K/mm3 (4.00-11.30)
[2024-04-01 08:59] LABS: Albumin, Blood 2.3 g/dL (3.4-5.0); Anion Gap 11 mmol/L (3-11); Blood Urea Nitrogen 9 mg/dL (8-24); Bun/Creatinine Ratio 18.1 (12.0-20.0); CO2, Blood 26 mmol/L (21-32); Calcium, Blood 8.2 mg/dL (8.5-10.1); Chloride, Blood 94 mmol/L (98-108); Glomerular Filtration Rate 115 (60-); Glucose, Blood 109 mg/dL (70-99); Phosphorus, Blood 3.7 mg/dL (2.5-4.9); Potassium, Blood 4.5 mmol/L (3.5-5.5); Sodium, Blood 126 mmol/L (136-145)
[2024-04-01] MEDS ORDERED: HYDROmorphone HCl/Pf 1MG SYR IV PRN ×2 (10:45→12:00)
[2024-04-01] MEDS ORDERED: LORazepam 2 MG/ML 1ML Injection IV PRN (10:45)
[2024-04-01 11:38] LABS: Source, Urine Straight Cath
[2024-04-01 11:41] VITALS: BP 117/58
[2024-04-01 11:43] LABS: Appearance, Urine Hazy (Clear); Bilirubin, Urine Neg (Neg); Blood, Urine 4+ (Neg); Color, Urine Yellow (P-Yellow); Glucose Qualitative, Urine Neg (Neg); Ketones, Urine Neg (Neg); Leukocyte Esterase, Urine 2+ (Neg); Nitrite, Urine Pos (Neg); Protein, Urine 1+ (Neg); Urobilinogen, Urine 1+ (Normal); pH, Urine 6.5 (5.0-8.0)
[2024-04-01] MEDS ORDERED: HYDROmorphone HCl/Pf 1MG SYR IV ONE (12:00)
[2024-04-01 12:09] LABS: Bacteria Many /hpf; Red Blood Cells, Urine 0-2 /hpf (0-2); Squamous Epithelial Cells Not Seen /hpf (Few)
[2024-04-01 15:16] VITALS: BP 132/76
[2024-04-01] MEDS ORDERED: Vancomycin HCL 1,250 MG in NS 250 ML IV ONE (16:20)
[2024-04-01] MEDS ORDERED: NS 250 ML IV PRN (16:30)
[2024-04-01] MEDS ORDERED: NS 1,000 ML BAG IR PRN (16:30)
[2024-04-01] MEDS ORDERED: CefTRIAXone Sodium 1,000 MG in NS 100 ML IV SCH (16:30)
--- NOTE | 2024-04-01 17:46 | NUR ---
SHIFT SUMMARY PATIENT A/OX4, ABLE TO MAKE NEEDS KNOWN. PLEASANT AND COOPERATIVE WITH STAFF MEMBERS. OBTAINED URINE SAMPLE TODAY. MRI FOR LEFT ELBOW ORDERED AND PRE-PROCEDURAL DOSES OF ATIVAN AND DILAUDID ORDERED WELL. INVESTIGATION DIVISION LIEUTENANT CALLED TO INFORM THAT RADIOLOGIST STATED D/T PATIENT HAVING HARDWARE IN JOINT FROM HISTORY OF FRACTURE THAT IMAGING WOULD BE DIFFICULT TO OBTAIN. THIS RN CALLED MD TO INFORM AND HE STATED HE WOULD SPEAK WITH RADIOLOGIST REGARDING IMAGING. PATIENT CONTINUES TO COMPLAIN OF LOWER BACK PAIN, PRN FENTANYL GIVEN THIS AM. SINCE THIS AM FENTANYL HAS BEEN DISCONTINUED AND PRN DILAUDID HAS BEEN ORDERED AND ADMINISTERED PER NOV. PATIENT INDEPENDENT WITH AMBULATION IN HIS ROOM. TELEMETRY IN PLACE, NO EVENTS NOTED THIS SHIFT. LEFT ELBOW WOUND CONTINUES TO DRAIN PURULENT DRAINAGE, DRESSING REMOVED BY PATIENT AND ARM RESTING ON DISPOSABLE DRAINAGE PAD. NEW ORDER RECEIVED FOR IV VANCOMYCIN, IV ROCEPHIN, AND IV FLUIDS. NEW PIV PLACED TO RIGHT UPPER ARM, 18G. ANTIBIOTICS ADMINISTERED AND IV FLUIDS RUNNING PER NOV. NO OTHER CONCERNS NOTED.
[2024-04-01] MEDS ORDERED: NS 1,000 ML IV SCH (18:00)
[2024-04-01] MEDS ORDERED: Metoclopramide HCl 5MG / ML 2ML Vial IV PRN (18:05)
[2024-04-01 20:11] VITALS: BP 129/91
[2024-04-01] MEDS ORDERED: Lactobacil 2-S.Thermo-Bifido 1 1 Cap PO SCH (21:00)
[2024-04-02] MEDS ORDERED: Vancomycin HCL 750 MG in NS 250 ML IV SCH (01:00)
[2024-04-02 04:29] VITALS: BP 131/71
[2024-04-02 06:14] LABS: BASOPHILS ABSOLUTE AUTO 0.08 K/mm3 (0.00-0.23); BASOPHILS PERCENT AUTO 1 % (0-2); EOSINOPHILS ABSOLUTE AUTO 0.13 K/mm3 (0.00-0.68); EOSINOPHILS PERCENT AUTO 1 % (0-6); Hematocrit 23.8 % (37.0-53.0); Hemoglobin 8.2 g/dL (13.5-17.5); IMMATURE GRAN ABSOLUTE AUTO 0.04 K/mm3 (0.00-0.10); IMMATURE GRAN PERCENT AUTO 0 % (0-1); LYMPHOCYTES ABSOLUTE AUTO 1.28 K/mm3 (0.84-5.20); LYMPHOCYTES PERCENT AUTO 11 % (21-46); MONOCYTES ABSOLUTE AUTO 0.89 K/mm3 (0.16-1.47); MONOCYTES PERCENT AUTO 8 % (4-13); Mean Corpuscular HGB 31.9 pg (26.0-34.0); Mean Corpuscular HGB Conc 34.5 g/dL (31.5-36.5); Mean Corpuscular Volume 93 fL (80-100); NEUTROPHILS ABSOLUTE AUTO 9.31 K/mm3 (1.96-9.15); NEUTROPHILS PERCENT AUTO 79 % (41-73); Platelet Count 507 K/mm3 (150-400); RDW Coefficient Variation 15.4 % (11.7-14.2); RDW Standard Deviation 52.2 fL (35.1-46.3); Red Blood Cell Count 2.57 M/mm3 (4.30-5.90); White Blood Cell Count 11.73 K/mm3 (4.00-11.30)
--- NOTE | 2024-04-02 06:37 | NUR ---
Shift Summary Pt still has very painful lower back, 7-9/10 pain. Repositioned with pillows and medicated per EMAR. He was able to sleep for short periods after pain medication administration only. Plan is for ortho surgery consult today regarding lower back. Pt is rcving IV ABX including vancomyacin. No acute changes. On tele running SR with SVPBs, no events. No acute changes.
[2024-04-02 06:41] LABS: Bun/Creatinine Ratio 15.1 (12.0-20.0); Calcium, Blood 7.7 mg/dL (8.5-10.1); Creatinine, Blood 0.47 mg/dL (0.60-1.20); Potassium, Blood 4.2 mmol/L (3.5-5.5)
[2024-04-02 07:41] VITALS: BP 109/72
[2024-04-02] MEDS ORDERED: Arginine/Glutamine/Calcium Hmb 1 Packet PO SCH (09:00)
[2024-04-02] MEDS ORDERED: Multivitamins/Minerals TAB PO SCH (09:00)
[2024-04-02] MEDS ORDERED: NS 1,000 ML IV SCH (15:00)
[2024-04-02 15:30] VITALS: BP 141/74
[2024-04-02 16:30] LABS: Vancomycin, Trough 14.9 ug/mL (5.0-10.0)
--- NOTE | 2024-04-02 16:53 | NUR ---
SHIFT SUMMARY PT AOX4, CALLS AND MAKES HIS NEEDS KNOWN. MEDICATED FOR PAIN PER THE EMAR. ORTHO CONSULTED THIS SHIFT, PT TO BE NPO AT MIDNIGHT. HE IS AWARE. INDEPENDENT WHEN NOT HOOKED UP TO THE IV, USES THE URINAL INDEPENDENTLY. HEALTHY APPETITE. PT IS HOMELESS. CALL LIGHT WITHIN REACH, BED LOCKED AND IN THE LOWEST POSITION. WILL REPORT TO ONCOMING NURSE.
[2024-04-02 19:57] VITALS: BP 160/78
[2024-04-03] VITALS (14 sets, daily range): BP systolic 84–143; BP diastolic 56–84
[2024-04-03 05:49] LABS: Hematocrit 23.3 % (37.0-53.0); Hemoglobin 8.1 g/dL (13.5-17.5); Mean Corpuscular HGB 32.3 pg (26.0-34.0); Mean Corpuscular HGB Conc 34.8 g/dL (31.5-36.5); Mean Corpuscular Volume 93 fL (80-100); Mean Platelet Volume 9.7 fL (9.1-12.4); Platelet Count 594 K/mm3 (150-400); RDW Coefficient Variation 15.1 % (11.7-14.2); Red Blood Cell Count 2.51 M/mm3 (4.30-5.90)
[2024-04-03 06:06] LABS: Bun/Creatinine Ratio 7.7 (12.0-20.0); Calcium, Blood 8.5 mg/dL (8.5-10.1); Creatinine, Blood 0.52 mg/dL (0.60-1.20); Potassium, Blood 3.7 mmol/L (3.5-5.5)
[2024-04-03 06:11] LABS: BASOPHILS PERCENT MAN 0 % (0-2); EOSINOPHILS PERCENT MAN 0 % (0-6); LYMPHOCYTES PERCENT MAN 10 % (21-46); MONOCYTES PERCENT MAN 4 % (4-13); SEG NEUTROPHILS PERCENT MAN 86 % (41-73); TOTAL CELLS COUNTED 100
[2024-04-03 06:16] LABS: LYMPHOCYTES ABSOLUTE MAN 1.52 K/mm3 (0.84-5.20); MONOCYTES ABSOLUTE MAN 0.61 K/mm3 (0.16-1.47); NEUTROPHILS ABSOLUTE MAN 13.14 K/mm3 (1.96-9.15); White Blood Cell Count 15.29 K/mm3 (4.00-11.30)
--- NOTE | 2024-04-03 06:46 | NUR ---
Shift Summary Pt c/o severe back pain which seems to have gotten worse over the last 12 hours. He has been medicated per EMAR which controlled his pain well during the day but tonight he was hurting between doses enough that he states he was 'seeing stars'. Gave ice back and heating pad and repositioned with pillows to help relieve pain. Pt NPO since 0000 awaiting I&D for L elbow. AOx4, moves independently in the room.
[2024-04-03] MEDS ORDERED: Piperacillin/Tazobactam Sod 3.375 GM in NS 100 ML IV SCH (09:00)
--- NOTE | 2024-04-03 14:08 | NUR ---
PT ESCOURTED VIA W/C TO PROCEDURE BY OR/DAY SURGERY SENA PETTY.
[2024-04-03] MEDS ORDERED: Lactated Ringer's 1,000 ML IV SCH (14:20)
[2024-04-03] MEDS ORDERED: Bupivacaine 0.5% HCl 5 MG/ML 30MLVIAL ONE (14:22)
[2024-04-03] MEDS ORDERED: PROAIR DIGIHAL90 MCG INH (14:36)
[2024-04-03] MEDS ORDERED: FAMO10 PO (14:36)
[2024-04-03] MEDS ORDERED: IPRAT-ALBUT 0.5-3 ML NEB (14:37)
[2024-04-03] MEDS ORDERED: Ondansetron Odt8 MG MM (14:37)
[2024-04-03] MEDS ORDERED: FentaNYL Citrate 50 MCG/ML 2 ML Injection ONE ×2 (14:40→16:03)
[2024-04-03] MEDS ORDERED: propofoL 20 ML IV ONE (14:41)
[2024-04-03] MEDS ORDERED: Phenylephrine HCl 100 MCG/ML-NS 10MLSYR (1MG/10ML) ONE (15:20)
[2024-04-03] MEDS ORDERED: Ondansetron HCl 2 MG / ML 2ML Vial ONE (15:39)
[2024-04-03] MEDS ORDERED: Dexamethasone Sod Phos 10 MG/ML 1ML VIAL ONE (15:39)
[2024-04-03] MEDS ORDERED: Lactated Ringer's 1,000 ML IV ONE (15:58)
--- NOTE | 2024-04-03 16:57 | NUR ---
PT ARRIVED TO THE FLOOR FROM PROCEDURE AT 1633. PT A&OX4, VSS, AND JOE WRAP C/D/I ON SURGICAL SITE. CALL LIGHT PLACED WITHIN REACH.
[2024-04-03] MEDS ORDERED: Nicotine 21 MG PATCH TOP ONE (17:05)
--- NOTE | 2024-04-03 18:16 | NUR ---
SHIFT SUMMARY PT A&OX4, VSS, AMB IND, TOLERATING PO, VOIDING, AND PAIN MANAGED PER EMAR. PT HAD I&D/HARDWARE REMOVAL PROCEDURE TODAY, JOE WRAP C/D/I TO L ELBOW. TELE NOTIFIED THIS NURSE THAT PT HAD .05 SEC OF SVT IN THE 150s THIS SHIFT. PT ASYMPTOMATIC AND FREE FROM ADDITIONAL EVENTS. NO OTHER ACUTE CHANGES. CALL LIGHT WITHIN REACH AND PT ABLE TO MAKE NEEDS KNOWN.
[2024-04-03] MEDS ORDERED: HYDROmorphone HCl 2 MG Tab PO PRN (19:55)
[2024-04-04 06:07] VITALS: BP 128/77
[2024-04-04 07:24] VITALS: BP 150/73
[2024-04-04 09:15] LABS: Hemoglobin 7.9 g/dL (13.5-17.5); Mean Corpuscular HGB 31.7 pg (26.0-34.0); Mean Corpuscular HGB Conc 34.3 g/dL (31.5-36.5); Mean Corpuscular Volume 92 fL (80-100); Mean Platelet Volume 9.7 fL (9.1-12.4); Platelet Count 512 K/mm3 (150-400); RDW Standard Deviation 50.3 fL (35.1-46.3); Red Blood Cell Count 2.49 M/mm3 (4.30-5.90)
[2024-04-04 09:28] LABS: Anion Gap 10 mmol/L (3-11); Blood Urea Nitrogen 11 mg/dL (8-24); Bun/Creatinine Ratio 23.5 (12.0-20.0); CO2, Blood 27 mmol/L (21-32); Calcium, Blood 8.2 mg/dL (8.5-10.1); Chloride, Blood 98 mmol/L (98-108); Creatinine, Blood 0.47 mg/dL (0.60-1.20); Glomerular Filtration Rate 117 (60-); Glucose, Blood 148 mg/dL (70-99); Potassium, Blood 4.1 mmol/L (3.5-5.5); Sodium, Blood 131 mmol/L (136-145); Vancomycin, Trough 14.2 ug/mL (5.0-10.0)
[2024-04-04 09:34] LABS: BASOPHILS PERCENT MAN 0 % (0-2); EOSINOPHILS PERCENT MAN 0 % (0-6); LYMPHOCYTES PERCENT MAN 16 % (21-46); MONOCYTES PERCENT MAN 5 % (4-13); SEG NEUTROPHILS PERCENT MAN 79 % (41-73); TOTAL CELLS COUNTED 100
[2024-04-04 09:48] LABS: LYMPHOCYTES ABSOLUTE MAN 1.37 K/mm3 (0.84-5.20); MONOCYTES ABSOLUTE MAN 0.42 K/mm3 (0.16-1.47); NEUTROPHILS ABSOLUTE MAN 6.78 K/mm3 (1.96-9.15); White Blood Cell Count 8.59 K/mm3 (4.00-11.30)
--- NOTE | 2024-04-04 16:36 | NUR ---
SHIFT SUMMARY PT CONT TO REMAIN A&O X4. PT HAS REFUSED TO GET OUT OF BED THIS SHIFT. PT NOTED TO UTILIZE URINAL AT BEDSIDE. PT CONT TO VOICE C/O PAIN TO BACK AND L ARM. PT UTILIZE PRN DILAUDID Q4HR ROUTINELY THIS SHIFT. PT REFUSED COLD/HEAT PACK WHEN OFFERED BY THIS NURSE STATED THAT HE WANT IV MEDS INSTEAD. THIS NURSE CALLED AND SPOKE WITH PHYSICAIN WHO STATED HE WOULD LOOK AT HIS PAIN MEDICATION, NO ORDERES RECEIVED AT THIS TIME. PT ALSO C/O HEARTBURN AT THE BEGGINING OF THIS SHIFT WHICH RESOLVED WITH PRN TUMS. PT CONT TO HAVE WOUND TO L ELBOW SITE REMAINS COVERED WITH JOE WRAP AND IS C/D/I.
[2024-04-04 20:43] VITALS: BP 150/80
[2024-04-05 05:07] VITALS: BP 121/79
[2024-04-05 05:37] LABS: BASOPHILS ABSOLUTE AUTO 0.04 K/mm3 (0.00-0.23); BASOPHILS PERCENT AUTO 0 % (0-2); EOSINOPHILS ABSOLUTE AUTO 0.13 K/mm3 (0.00-0.68); EOSINOPHILS PERCENT AUTO 1 % (0-6); Hematocrit 25.1 % (37.0-53.0); Hemoglobin 8.7 g/dL (13.5-17.5); IMMATURE GRAN ABSOLUTE AUTO 0.07 K/mm3 (0.00-0.10); IMMATURE GRAN PERCENT AUTO 1 % (0-1); LYMPHOCYTES ABSOLUTE AUTO 2.92 K/mm3 (0.84-5.20); LYMPHOCYTES PERCENT AUTO 23 % (21-46); MONOCYTES ABSOLUTE AUTO 1.11 K/mm3 (0.16-1.47); MONOCYTES PERCENT AUTO 9 % (4-13); Mean Corpuscular HGB 31.6 pg (26.0-34.0); Mean Corpuscular HGB Conc 34.7 g/dL (31.5-36.5); Mean Corpuscular Volume 91 fL (80-100); Mean Platelet Volume 9.9 fL (9.1-12.4); NEUTROPHILS ABSOLUTE AUTO 8.36 K/mm3 (1.96-9.15); NEUTROPHILS PERCENT AUTO 66 % (41-73); Platelet Count 566 K/mm3 (150-400); RDW Coefficient Variation 15.1 % (11.7-14.2); RDW Standard Deviation 49.8 fL (35.1-46.3); Red Blood Cell Count 2.75 M/mm3 (4.30-5.90); White Blood Cell Count 12.63 K/mm3 (4.00-11.30)
[2024-04-05 06:25] LABS: Bun/Creatinine Ratio 13.5 (12.0-20.0); Calcium, Blood 8.6 mg/dL (8.5-10.1); Creatinine, Blood 0.52 mg/dL (0.60-1.20); Potassium, Blood 4.1 mmol/L (3.5-5.5)
--- NOTE | 2024-04-05 07:31 | NUR ---
END OF SHIFT SUMMARY PT ALERT, IRRITABLE WITH QUESTIONS/ASSESSMENTS. FLAT AFFECT. PIGTAIL DRAIN TO LLQ INTACT WITH NO DRAINAGE AT INSERTION SITE, FLUSHED WITH 20ML NS WITHOUT RESISTANCE. 50ML OF PURULENT, FOUL SMELLING DRAINAGE COLLECTED IN HEMOVAC BAG. IN AM, DRAINAGE FROM OLD DRAIN PUNCTURE SITE NOTED. DRESSING CHANGED AND GAUZE APPLIED. THIS SITE AGAIN STARTED LEAKING THIS AM, UNABLE TO MEASURE AMOUNT. DRESSING AND GAUZE REPLACED. TPN INFUSING WELL THRU PICC LINE. BLOOD GLUCOSE WNL. PT ABLE TO TOLERATE SMALL AMOUNTS OF FOOD, NO N/V/PAIN. HEMOGLOBIN TRENDING DOWN.
[2024-04-05 07:33] VITALS: BP 104/61
--- NOTE | 2024-04-05 07:39 | NUR ---
END OF SHIFT PT C/O PAIN TO BACK UNCHANGED. MEDICATED WITH DILAUDID AND TYLENOL WITH GOOD RELIEF. DRESSING TO LUE REMAINS INTACT, CSM INTACT. PT AMBULATING INDEPENDENTLY IN ROOM. NO ACUTE EVENTS OVERNIGHT.
--- NOTE | 2024-04-05 09:22 | NUR ---
CALLED AN LEFT A MESSAGE AT THE OFFICE OF DR ALAN MOSELEY RE: PT NOT HAVING ANY WOUND DSG ORDERS AND TO FIND OUT WHAT THE PLAN IS AWAITING CALL BACK.
[2024-04-05] MEDS ORDERED: CeFAZolin Sodium 1,000 MG in NS 50 ML IV SCH (12:00)
--- NOTE | 2024-04-05 14:35 | NUR ---
RECEIVED PHONE CALL FROM DR MOSELEY OFFICE WHOM GAVE ME HER PHONE NUMBER TO CALL. TO TRY TO OBTAIN ANSWERS RE: PT L ELBOW NOT HAVING ANY ORDERS FOR DSG CHANGE. CALLED0 AND LEFT VOICEMAIL AWAITING CALL BACK. CELL PHONE NUMBER [phone]
[2024-04-05 15:49] VITALS: BP 132/81
--- NOTE | 2024-04-05 16:27 | NUR ---
SHIFT SUMMARY PT IS A&O X4. PT CONT TO UTILIZE URINAL AT BEDSIDE. PT CONT TO C/O PAIN TO LOWER BACK. PT MEDCATED PER EMAR. PT HAS ALSO UTILIZED HOT PAD AND REPOSITIONING. PT GOT UP THIS SHIFT TO CHAIR AND SET IN CHAIR FOR AROUND 30MIN PRIOR TO GOING BACK AND LAYING IN BED. DR MOSEELY HAS BEEN CALLED 2X THIS SHIFT RE: L ARM WOUND ABOUT TRYING TO GATHER A PLAN FOR DSG CHANGE WITH NO CALL AT THIS TIME.
[2024-04-05 19:45] VITALS: BP 136/76
[2024-04-06 03:53] VITALS: BP 112/71
[2024-04-06 05:25] LABS: BASOPHILS ABSOLUTE AUTO 0.07 K/mm3 (0.00-0.23); BASOPHILS PERCENT AUTO 1 % (0-2); EOSINOPHILS ABSOLUTE AUTO 0.23 K/mm3 (0.00-0.68); EOSINOPHILS PERCENT AUTO 2 % (0-6); Hematocrit 24.3 % (37.0-53.0); Hemoglobin 8.3 g/dL (13.5-17.5); IMMATURE GRAN ABSOLUTE AUTO 0.05 K/mm3 (0.00-0.10); IMMATURE GRAN PERCENT AUTO 0 % (0-1); LYMPHOCYTES ABSOLUTE AUTO 3.26 K/mm3 (0.84-5.20); LYMPHOCYTES PERCENT AUTO 29 % (21-46); MONOCYTES ABSOLUTE AUTO 1.15 K/mm3 (0.16-1.47); MONOCYTES PERCENT AUTO 10 % (4-13); Mean Corpuscular HGB 31.3 pg (26.0-34.0); Mean Corpuscular HGB Conc 34.2 g/dL (31.5-36.5); Mean Corpuscular Volume 92 fL (80-100); Mean Platelet Volume 9.8 fL (9.1-12.4); NEUTROPHILS PERCENT AUTO 57 % (41-73); Platelet Count 554 K/mm3 (150-400); RDW Coefficient Variation 15.2 % (11.7-14.2); RDW Standard Deviation 51.6 fL (35.1-46.3); Red Blood Cell Count 2.65 M/mm3 (4.30-5.90); White Blood Cell Count 11.16 K/mm3 (4.00-11.30)
[2024-04-06 05:55] LABS: Bun/Creatinine Ratio 18.6 (12.0-20.0); Calcium, Blood 8.4 mg/dL (8.5-10.1); Creatinine, Blood 0.48 mg/dL (0.60-1.20); Potassium, Blood 4.1 mmol/L (3.5-5.5)
--- NOTE | 2024-04-06 06:43 | NUR ---
END OF SHIFT SUMMARY NO ACUTE EVENTS OVERNIGHT. PT C/O SAME PAIN TO BACK, MEDICATED WITH DILAUDID AND TYLENOL WITH GOOD EFFECT.
[2024-04-06 07:19] VITALS: BP 136/89
[2024-04-06] MEDS ORDERED: Thiamine HCl 100 MG Tab PO SCH (09:00)
--- NOTE | 2024-04-06 15:06 | NUR ---
SHIFT SUMMARY: PATIENT A/OX4, VERY TALKATIVE, PLEASANT AND COOPERATIVE c CARE. PATIENT CONTINUES TO REPORTS PAIN 7-8/10 TO BACK AND L ARM, MEDICATED c EMAR PRN PAIN MEDS c MOD EFFECT. NO EVENTS ON TELE, SR HR IN THE MID 70'S BPM. TELE DC'D THIS PM PER ORDER. RA, SATING 99%. PATIENT WORK c PT MOBILITY EVAL THIS PM. PATIENT L ARM DRESSING HAS NOT BEEN CHANGED SINCE I&D DONE ON THE BY DR. MOSELEY. NO INCISION/DRESSING CARE ORDERED TO SITE. THIS RN CALLED DR. RICARDO (ORTHO) SCHEDULED TODAY, UPDATED c PATIENT I&D DONE BY DR. MOSELEY, INCISION/DRESSING CARE ISSUE AND IF THERE IS ANY RECOMMENDATION. PER DR. RICARDO "JUST LEAVE THE DRESSING THE WAY IT IS FOR NOW. I DON'T KNOW THE PATIENT AND I MIGHT LOOK IN TO IT." NOTIFIED HELPER MAINTENANCE CLEANING, ARISTEO JOHNSON REGARDING THIS CONCERNED. PATIENT HAS GOOD APPETITE, CONTINENT OF BLADDER, USES URINAL IN BED INDEPENDENTLY T/O SHIFT. PATIENT RECEIVED IV ABX/SCHEDULED MEDS PER EMAR. VITAL SIGNS REVIEWED. CALL LIGHT IN REACH.
[2024-04-06 15:21] VITALS: BP 130/81
[2024-04-06 19:47] VITALS: BP 128/87
--- NOTE | 2024-04-06 20:05 | NUR ---
DR. RICARDO IN TO SEE PT. DRESSING TO SEFERINO CHANGED BY . INCISION WITH SUTURES, CLEAN, NO S/S OF INFECTION. VERBAL ORDERS RECD TO CHANGE DRESSINGS DAILY WITH 4X4, KERLIX, AND JOE BANDAGE. ALSO NWB TO SEFERINO.
[2024-04-06] MEDS ORDERED: Docusate Sodium 100 MG Cap PO SCH (21:30)
[2024-04-06] MEDS ORDERED: Sennosides 8.6 MG Tab PO SCH (21:30)
[2024-04-06] MEDS ORDERED: Bisacodyl 10 MG Supp PR PRN (21:30)
[2024-04-06] MEDS ORDERED: Magnesium Hydroxide Conc 10 ML UDC PO PRN (21:30)
[2024-04-07 04:34] VITALS: BP 141/86
[2024-04-07 06:21] LABS: BASOPHILS ABSOLUTE AUTO 0.06 K/mm3 (0.00-0.23); BASOPHILS PERCENT AUTO 1 % (0-2); EOSINOPHILS ABSOLUTE AUTO 0.15 K/mm3 (0.00-0.68); EOSINOPHILS PERCENT AUTO 1 % (0-6); Hematocrit 25.3 % (37.0-53.0); Hemoglobin 8.7 g/dL (13.5-17.5); IMMATURE GRAN ABSOLUTE AUTO 0.07 K/mm3 (0.00-0.10); IMMATURE GRAN PERCENT AUTO 1 % (0-1); LYMPHOCYTES ABSOLUTE AUTO 1.01 K/mm3 (0.84-5.20); LYMPHOCYTES PERCENT AUTO 10 % (21-46); MONOCYTES PERCENT AUTO 9 % (4-13); Mean Corpuscular HGB 31.8 pg (26.0-34.0); Mean Corpuscular HGB Conc 34.4 g/dL (31.5-36.5); Mean Corpuscular Volume 92 fL (80-100); Mean Platelet Volume 9.9 fL (9.1-12.4); NEUTROPHILS ABSOLUTE AUTO 8.34 K/mm3 (1.96-9.15); NEUTROPHILS PERCENT AUTO 79 % (41-73); Platelet Count 606 K/mm3 (150-400); RDW Coefficient Variation 15.5 % (11.7-14.2); RDW Standard Deviation 52.3 fL (35.1-46.3); Red Blood Cell Count 2.74 M/mm3 (4.30-5.90); White Blood Cell Count 10.53 K/mm3 (4.00-11.30)
[2024-04-07 06:53] LABS: Calcium, Blood 8.8 mg/dL (8.5-10.1); Creatinine, Blood 0.43 mg/dL (0.60-1.20); Potassium, Blood 3.8 mmol/L (3.5-5.5)
--- NOTE | 2024-04-07 07:39 | NUR ---
END OF SHIFT SUMMARY NO ACUTE EVENTS OVERNIGHT. PT MEDICATED FOR PAIN PRN. IV ABX INFUSED ORDERED. DRESSING TO LUE REMAINED INTACT. BOWEL PREP MEDS ORDERED PT STATED HE HAS NOT HAD A BM IN 1 WEEK. PT REFUSED BOWEL MEDS, STATING "I KNOW MYSELF BETTER THAN YOU. I DONT NEED TO TAKE ANY OF THAT STUFF." PT STATED HE "MIGHT" TAKE BOWEL MEDS IN AM.
[2024-04-07 07:50] VITALS: BP 129/75
[2024-04-07 15:07] VITALS: BP 134/77
--- NOTE | 2024-04-07 15:47 | NUR ---
SHIFT SUMMARY: NO NEW CHANGES THIS SHIFT. PATIENT A/OX4, PLEASANT AND COOPERATIVE c CARE. PATIENT CONTINUES TO REPORTS PAIN TO BACK/L ARM, MEDICATED c EMAR PAIN MEDS c MOD EFFECT. DRESSING CHANGED TO L ARM PER ORDER, NOTED INCISION c SUTURES STILL INTACT, NO DRAINAGE AND S/S OF INFECTION TO SITE. L ARM ELEVATED ON PILLOWS T/O SHIFT. PATIENT REFUSED TO SIT UP IN THE CHAIR AND AMBULATES IN ROOM THIS SHIFT. PATIENT RESTING IN BED ON/OFF, REPOSITIONED SELF IN BED T/O SHIFT. PATIENT HAS GOOD APPETITE, CONTINENT OF BLADDER AND USES URINAL INDEPENDENTLY. PATIENT RECEIVED IV ABX/SCHEDULED MEDS PER EMAR VITAL SIGNS REVIEWED. CALL LIGHT IN REACH.
[2024-04-07 20:24] VITALS: BP 135/71
[2024-04-08 02:13] VITALS: BP 104/68
--- NOTE | 2024-04-08 04:18 | NUR ---
SHIFT SUMMARY PATIENT PAINFUL MEDICATED OFTEN HE COULD HAVE IT. CIRC CHECK TO LEFT HAND WNL. STAYED IN BED ALL NIGHT. TALKATIVE.
[2024-04-08 05:44] LABS: BASOPHILS ABSOLUTE AUTO 0.09 K/mm3 (0.00-0.23); BASOPHILS PERCENT AUTO 1 % (0-2); EOSINOPHILS ABSOLUTE AUTO 0.04 K/mm3 (0.00-0.68); EOSINOPHILS PERCENT AUTO 0 % (0-6); Hematocrit 26.7 % (37.0-53.0); IMMATURE GRAN ABSOLUTE AUTO 0.08 K/mm3 (0.00-0.10); IMMATURE GRAN PERCENT AUTO 1 % (0-1); LYMPHOCYTES ABSOLUTE AUTO 1.67 K/mm3 (0.84-5.20); LYMPHOCYTES PERCENT AUTO 18 % (21-46); MONOCYTES ABSOLUTE AUTO 1.25 K/mm3 (0.16-1.47); MONOCYTES PERCENT AUTO 13 % (4-13); Mean Corpuscular HGB 31.5 pg (26.0-34.0); Mean Corpuscular HGB Conc 33.7 g/dL (31.5-36.5); Mean Corpuscular Volume 93 fL (80-100); Mean Platelet Volume 9.8 fL (9.1-12.4); NEUTROPHILS ABSOLUTE AUTO 6.21 K/mm3 (1.96-9.15); NEUTROPHILS PERCENT AUTO 66 % (41-73); Platelet Count 619 K/mm3 (150-400); RDW Coefficient Variation 15.5 % (11.7-14.2); RDW Standard Deviation 52.6 fL (35.1-46.3); Red Blood Cell Count 2.86 M/mm3 (4.30-5.90); White Blood Cell Count 9.34 K/mm3 (4.00-11.30)
[2024-04-08 06:29] LABS: Bun/Creatinine Ratio 18.3 (12.0-20.0); Calcium, Blood 8.4 mg/dL (8.5-10.1); Creatinine, Blood 0.49 mg/dL (0.60-1.20); Percent Saturation 7.1 % (20.0-50.0); Potassium, Blood 3.9 mmol/L (3.5-5.5)
[2024-04-08 07:46] VITALS: BP 115/74
[2024-04-08] MEDS ORDERED: Cyclobenzaprine HCl 10 MG Tab PO PRN (14:50)
[2024-04-08 17:47] VITALS: BP 117/69
--- NOTE | 2024-04-08 18:14 | NUR ---
SHIFT SUMMARY; DRESSING CHANGE TO WOUND ON LEFT ELBOW THIS AFTERNOON. WOUND IS WELL APPROXIMATED. SUTURES IN PLACE. NO REDNESS OR SWELLING NOTED TO WOUND SITE. PATIENT HAS PLEASANT AFFECT AND IS COOPERATVE WITH CAR. HE HAS ONE EPSODE OF SEVERE BACK SPASMS TODAY AND 10MG PO FLEXERIL IS ORDERED AND GIVEN ALONG WITH DILAUDD AND TYLENOL. PATIENT SAYS PAIN IS NOW A 6/10 AND IS MANAGEABLE. HE IS INDEPENDANT TO THE BATHROOM AND USS CALL LIGHT APPROPRIATELY. ORDERS MEALS FROM DIETARY MENU AND HAS GOOD APPETITE. VITAL SIGNS ARE WNL HE IS NOT FEBRILE. LUNGS ARE CLEAR AND DIM IN THE BASES. HE IS NOTED TO HAVE A HACKING COUGH.
[2024-04-08 19:32] VITALS: BP 111/74
--- NOTE | 2024-04-09 04:03 | NUR ---
SHIFT SUMMARY PATIENT GIVEN PAIN MEDS ALL NIGHT LONG, HE IS REMAINED IN BED D/T HIS BACK PAIN. HAS BEEN EATING BETTER AND ENCOURAGED TO DO SO. CIRCC CHECK TO LEFT HAND WNL.
[2024-04-09 04:31] VITALS: BP 95/64
[2024-04-09 06:19] LABS: BASOPHILS ABSOLUTE AUTO 0.12 K/mm3 (0.00-0.23); BASOPHILS PERCENT AUTO 1 % (0-2); EOSINOPHILS ABSOLUTE AUTO 0.03 K/mm3 (0.00-0.68); EOSINOPHILS PERCENT AUTO 0 % (0-6); Hematocrit 24.3 % (37.0-53.0); Hemoglobin 8.4 g/dL (13.5-17.5); IMMATURE GRAN ABSOLUTE AUTO 0.07 K/mm3 (0.00-0.10); IMMATURE GRAN PERCENT AUTO 1 % (0-1); LYMPHOCYTES ABSOLUTE AUTO 2.42 K/mm3 (0.84-5.20); LYMPHOCYTES PERCENT AUTO 20 % (21-46); MONOCYTES ABSOLUTE AUTO 1.18 K/mm3 (0.16-1.47); MONOCYTES PERCENT AUTO 10 % (4-13); Mean Corpuscular HGB 31.9 pg (26.0-34.0); Mean Corpuscular HGB Conc 34.6 g/dL (31.5-36.5); Mean Corpuscular Volume 92 fL (80-100); Mean Platelet Volume 9.7 fL (9.1-12.4); NEUTROPHILS ABSOLUTE AUTO 8.08 K/mm3 (1.96-9.15); NEUTROPHILS PERCENT AUTO 68 % (41-73); Platelet Count 572 K/mm3 (150-400); RDW Coefficient Variation 15.4 % (11.7-14.2); RDW Standard Deviation 51.9 fL (35.1-46.3); Red Blood Cell Count 2.63 M/mm3 (4.30-5.90)
[2024-04-09 06:41] LABS: Bun/Creatinine Ratio 28.6 (12.0-20.0); Calcium, Blood 8.4 mg/dL (8.5-10.1); Creatinine, Blood 0.42 mg/dL (0.60-1.20); Potassium, Blood 4.1 mmol/L (3.5-5.5)
[2024-04-09 08:00] VITALS: BP 90/61
[2024-04-09 16:22] VITALS: BP 109/69
--- NOTE | 2024-04-09 19:23 | NUR ---
END OF SHIFT SUMMARY: A&Ox4. PLEASANT AND COOPERATIVE WITH CARE. CALLS APPROPRIATELY AND IS ABLE TO ADVOCATE NEEDS EFFECTIVELY. IRRITABLE THIS MORNING, ESPECIALLY WITH PROVIDER, YELLING AND CUSSING AT HER WHEN SHE ATTEMPTED TO PERFORM PHYSICAL EXAM. C/O FREQUENT PAIN AND CALLS ROUTINELY FOR PAIN MEDS. IV INFILTRATED WITH EVENING ABx. NOC SHIFT CHARGE NOTIFIED PT NEEDS PICC LINE FOR LONG-TERM ABx. 1PA c FWW. SHOWER TODAY. REFUSED BOWEL CARE. MEDS WHOLE WITH FLUIDS. BED IN LOWEST POSITION. CALL LIGHT WITHIN REACH. ALL NEEDS MET. REPORT TO ONCOMING RN.
[2024-04-09 19:46] VITALS: BP 119/66
[2024-04-10 02:29] VITALS: BP 100/60
--- NOTE | 2024-04-10 03:50 | NUR ---
SHIFT SUMMARY NOC PT A/O X 4. PLEASANT AND COOPERATIVE WITH CARE. VSS. NO ACUTE CHANGES TO REPORT. NEW IV ACCESS ESTABLISHED IN RAC, 2 DOSES OF IV ABX GIVEN. LOWER BACK PAIN BEING MANAGED PER EMAR Q4H. L ELBOW DRESSING C/D/I. PT AWAITING PICC LINE PLACEMENT SO THAT THEY CAN FINISH 6 WEEKS OF IV ABX AT [facility]. PT IS CURRENTLY RESTING WITH BED IN LOWEST POSITION, AND CALL LIGHT WITHIN REACH.
[2024-04-10 05:38] LABS: BASOPHILS ABSOLUTE AUTO 0.09 K/mm3 (0.00-0.23); BASOPHILS PERCENT AUTO 1 % (0-2); EOSINOPHILS ABSOLUTE AUTO 0.13 K/mm3 (0.00-0.68); EOSINOPHILS PERCENT AUTO 1 % (0-6); Hematocrit 26.2 % (37.0-53.0); Hemoglobin 8.8 g/dL (13.5-17.5); IMMATURE GRAN ABSOLUTE AUTO 0.08 K/mm3 (0.00-0.10); IMMATURE GRAN PERCENT AUTO 1 % (0-1); LYMPHOCYTES ABSOLUTE AUTO 2.53 K/mm3 (0.84-5.20); LYMPHOCYTES PERCENT AUTO 20 % (21-46); MONOCYTES ABSOLUTE AUTO 0.98 K/mm3 (0.16-1.47); MONOCYTES PERCENT AUTO 8 % (4-13); Mean Corpuscular HGB 31.3 pg (26.0-34.0); Mean Corpuscular HGB Conc 33.6 g/dL (31.5-36.5); Mean Corpuscular Volume 93 fL (80-100); Mean Platelet Volume 9.7 fL (9.1-12.4); NEUTROPHILS ABSOLUTE AUTO 9.17 K/mm3 (1.96-9.15); NEUTROPHILS PERCENT AUTO 71 % (41-73); Platelet Count 533 K/mm3 (150-400); RDW Coefficient Variation 15.7 % (11.7-14.2); RDW Standard Deviation 53.3 fL (35.1-46.3); Red Blood Cell Count 2.81 M/mm3 (4.30-5.90); White Blood Cell Count 12.98 K/mm3 (4.00-11.30)
[2024-04-10 06:20] LABS: Calcium, Blood 8.5 mg/dL (8.5-10.1); Creatinine, Blood 0.4 mg/dL (0.60-1.20); Potassium, Blood 4.4 mmol/L (3.5-5.5)
[2024-04-10 07:15] VITALS: BP 106/60
[2024-04-10] MEDS ORDERED: Ketorolac Tromethamine 15mg Vial IV PRN (11:55)
[2024-04-10 16:57] VITALS: BP 103/63
--- NOTE | 2024-04-10 18:40 | NUR ---
END OF SHIFT SUMMARY: A&Ox4. PLEASANT AND COOPERATIVE WITH CARE. CALLS APPROPRIATELY AND IS ABLE TO ADVOCATE NEEDS EFFECTIVELY. MEDICATED x3 PRN PAIN. ADDITION OF TORADOL VIA IV TODAY. IV RAC POSITIONAL. 12PM ABx DEFERRED UNTIL 1400 D/T WANTING TO EAT HIS LUNCH AND BEING UNABLE TO BEND HIS ARM DURING ADMINISTRATION. CONSEQUENTLY, HE ASKED OT HAVE HIS 1800 ABx A LITTLE LATER SINCE HE'D "JUST FINISHED THE LAST ONES". PT VERY LABILE, THOUGH IN A BETTER MOOD THAN WAS YESTERDAY. ANTICIPATE DC TO SNF TOMORROW. BED IN LOWEST POSITION. CALL LIGHT WITHIN REACH. ALL NEEDS MET. REPORT TO ONCOMING RN.
[2024-04-10 19:58] VITALS: BP 118/65
[2024-04-10] MEDS ORDERED: Sodium Chloride 1 GM TAB PO SCH (21:00)
--- NOTE | 2024-04-10 23:08 | NUR ---
IV TO RAC PLACED 04/09 VIA ULTRASOUND WAS VERY POSITIONAL PER DAY SHIFT RN. ATTEMPTED TO FLUSH IV AND ADMINSITER TORADOL AND IT INFILTRATED. REMOVED. DISCUSSED WITH PT NEED FOR NEW IV PLACEMENT TONIGHT TO CONTINUE TO RECEIVE IV ANTIBIOTICS. HE BECAME INCREASINGLY UPSET AND STATED HE WOULD LEAVE IN THE MORNING. DISCUSSED WITH PT IF HE LEFT AMA IN THE MORNING HE WOULD NOT RECEIVE MEDICATIONS TO TREAT THE INFECTION TO HIS LEFT ARM. PT VERBALIZED UNDERSTANIING AND IS AGREEABLE WITH PLAN OF TRYING FOR A POWERGLIDE TOMORROW THE PLAN IS TO DISCHARGE TO SNF ON ANTIBIOTICS.
[2024-04-11 02:07] VITALS: BP 115/68
[2024-04-11 05:33] LABS: BASOPHILS ABSOLUTE AUTO 0.07 K/mm3 (0.00-0.23); BASOPHILS PERCENT AUTO 1 % (0-2); EOSINOPHILS ABSOLUTE AUTO 0.09 K/mm3 (0.00-0.68); EOSINOPHILS PERCENT AUTO 1 % (0-6); Hematocrit 22.8 % (37.0-53.0); Hemoglobin 7.8 g/dL (13.5-17.5); IMMATURE GRAN ABSOLUTE AUTO 0.07 K/mm3 (0.00-0.10); IMMATURE GRAN PERCENT AUTO 1 % (0-1); LYMPHOCYTES ABSOLUTE AUTO 2.76 K/mm3 (0.84-5.20); LYMPHOCYTES PERCENT AUTO 20 % (21-46); MONOCYTES PERCENT AUTO 8 % (4-13); Mean Corpuscular HGB 31.6 pg (26.0-34.0); Mean Corpuscular HGB Conc 34.2 g/dL (31.5-36.5); Mean Corpuscular Volume 92 fL (80-100); Mean Platelet Volume 9.3 fL (9.1-12.4); NEUTROPHILS ABSOLUTE AUTO 9.92 K/mm3 (1.96-9.15); NEUTROPHILS PERCENT AUTO 71 % (41-73); Platelet Count 515 K/mm3 (150-400); RDW Coefficient Variation 15.5 % (11.7-14.2); RDW Standard Deviation 52.6 fL (35.1-46.3); Red Blood Cell Count 2.47 M/mm3 (4.30-5.90); White Blood Cell Count 14.01 K/mm3 (4.00-11.30)
[2024-04-11 05:56] LABS: Bun/Creatinine Ratio 30.4 (12.0-20.0); Creatinine, Blood 0.53 mg/dL (0.60-1.20); Potassium, Blood 4.7 mmol/L (3.5-5.5)
[2024-04-11 07:29] VITALS: BP 111/65
[2024-04-11 11:42] LABS: SARS-Cov-2 (COVID-19) PCR, MMC POSITIVE (NEGATIVE)
[2024-04-11 16:18] VITALS: BP 129/75
--- NOTE | 2024-04-11 17:33 | NUR ---
SHIFT SUMMARY PT AOX4, SBA TO THE BR. NWB ON THE LUE. PT MEDICATED FOR PAIN PER THE EMAR. HE WAS GOING TO DISCHARGE TODAY BUT TESTED POSITIVE FOR COVID. HE CALLS AND MAKES HIS NEEDS KNOWN. REPOSITIONS HIMSELF IN BED. CALL LIGHT WITHIN REACH, BED LOCKED AND IN THE LOWEST POSITION. WILL REPORT TO ONCOMING NURSE.
--- NOTE | 2024-04-11 18:00 | NUR ---
WOUND CARE: WOUND CARE TO L ELBOW DONE THIS SHIFT, PT TOLERATED IT WELL.
[2024-04-11 19:34] VITALS: BP 127/74
[2024-04-12 03:37] VITALS: BP 145/79
[2024-04-12 05:59] LABS: BASOPHILS ABSOLUTE AUTO 0.04 K/mm3 (0.00-0.23); BASOPHILS PERCENT AUTO 0 % (0-2); EOSINOPHILS ABSOLUTE AUTO 0.17 K/mm3 (0.00-0.68); EOSINOPHILS PERCENT AUTO 1 % (0-6); Hematocrit 22.7 % (37.0-53.0); Hemoglobin 7.7 g/dL (13.5-17.5); IMMATURE GRAN ABSOLUTE AUTO 0.06 K/mm3 (0.00-0.10); IMMATURE GRAN PERCENT AUTO 1 % (0-1); LYMPHOCYTES ABSOLUTE AUTO 2.94 K/mm3 (0.84-5.20); LYMPHOCYTES PERCENT AUTO 23 % (21-46); MONOCYTES PERCENT AUTO 7 % (4-13); Mean Corpuscular HGB 31.3 pg (26.0-34.0); Mean Corpuscular HGB Conc 33.9 g/dL (31.5-36.5); Mean Corpuscular Volume 92 fL (80-100); Mean Platelet Volume 9.6 fL (9.1-12.4); NEUTROPHILS ABSOLUTE AUTO 8.48 K/mm3 (1.96-9.15); NEUTROPHILS PERCENT AUTO 67 % (41-73); Platelet Count 527 K/mm3 (150-400); RDW Coefficient Variation 15.5 % (11.7-14.2); RDW Standard Deviation 52.4 fL (35.1-46.3); Red Blood Cell Count 2.46 M/mm3 (4.30-5.90); White Blood Cell Count 12.59 K/mm3 (4.00-11.30)
[2024-04-12 06:25] LABS: Bun/Creatinine Ratio 27.7 (12.0-20.0); Calcium, Blood 8.1 mg/dL (8.5-10.1); Creatinine, Blood 0.47 mg/dL (0.60-1.20); Potassium, Blood 4.2 mmol/L (3.5-5.5)
[2024-04-12 07:42] VITALS: BP 120/67
[2024-04-12 15:05] VITALS: BP 132/89
--- NOTE | 2024-04-12 17:59 | NUR ---
SHIFT SUMMARY PT C/O PAIN T/O SHIFT THAT WAS MEDICATED PER THE EMAR. WOUND CARE/DRESSING CHANGE COMPLETED. NO OTHER ACUTE CHANGES. CALL LIGHT WITHIN REACH AND PT ABLE TO MAKE NEEDS KNOWN.
[2024-04-12 19:25] VITALS: BP 129/77
[2024-04-13 03:15] VITALS: BP 135/80
--- NOTE | 2024-04-13 05:03 | NUR ---
SHIFT SUMMARY 63 YR M ADMITTED ON 03/31/24. FULL CODE. NO ACUTE CHANGES THIS SHIFT. PT C/O BACK PAIN AND WAS MEDICATED TWICE PER EMAR. HE IS A&O X 4 AND IS ABLE TO MAKE HIS NEEDS KNOWN. PLEASANT AND COOPERATIVE WITH CARE. USES URINAL AT BEDSIDE FOR URINATION. WILL CONTINUE TO MONITOR. BED IN LOW POSITION AND CALL LIGHT IN REACH.
[2024-04-13 05:53] LABS: BASOPHILS ABSOLUTE AUTO 0.07 K/mm3 (0.00-0.23); BASOPHILS PERCENT AUTO 1 % (0-2); EOSINOPHILS ABSOLUTE AUTO 0.31 K/mm3 (0.00-0.68); EOSINOPHILS PERCENT AUTO 3 % (0-6); Hematocrit 21.9 % (37.0-53.0); Hemoglobin 7.4 g/dL (13.5-17.5); IMMATURE GRAN ABSOLUTE AUTO 0.06 K/mm3 (0.00-0.10); IMMATURE GRAN PERCENT AUTO 1 % (0-1); LYMPHOCYTES ABSOLUTE AUTO 3.12 K/mm3 (0.84-5.20); LYMPHOCYTES PERCENT AUTO 28 % (21-46); MONOCYTES ABSOLUTE AUTO 0.82 K/mm3 (0.16-1.47); MONOCYTES PERCENT AUTO 7 % (4-13); Mean Corpuscular HGB 31.1 pg (26.0-34.0); Mean Corpuscular HGB Conc 33.8 g/dL (31.5-36.5); Mean Corpuscular Volume 92 fL (80-100); Mean Platelet Volume 9.6 fL (9.1-12.4); NEUTROPHILS ABSOLUTE AUTO 6.98 K/mm3 (1.96-9.15); NEUTROPHILS PERCENT AUTO 62 % (41-73); Platelet Count 614 K/mm3 (150-400); RDW Coefficient Variation 15.5 % (11.7-14.2); RDW Standard Deviation 51.3 fL (35.1-46.3); Red Blood Cell Count 2.38 M/mm3 (4.30-5.90); White Blood Cell Count 11.36 K/mm3 (4.00-11.30)
[2024-04-13 07:00] LABS: Albumin/Globulin Ratio 0.4 (0.8-1.8); Bilirubin, Total 0.1 mg/dL (0.1-1.0); Bun/Creatinine Ratio 22.6 (12.0-20.0); Calcium, Blood 8.3 mg/dL (8.5-10.1); Creatinine, Blood 0.44 mg/dL (0.60-1.20); Globulin, Blood 5.2 g/dL (2.2-4.0); Potassium, Blood 4.5 mmol/L (3.5-5.5); Total Protein, Blood 7.2 g/dL (6.4-8.2)
[2024-04-13 07:57] VITALS: BP 159/81
[2024-04-13] MEDS ORDERED: NS 500 ML IV SCH (08:00)
[2024-04-13 15:29] VITALS: BP 146/82
--- NOTE | 2024-04-13 17:49 | NUR ---
SHIFT SUMMARY NO ACUTE CHANGES THIS SHIFT. CALL LIGHT WITHIN REACH AND PT ABLE TO MAKE NEEDS KNOWN.
[2024-04-13 20:10] VITALS: BP 146/76
[2024-04-14 03:31] VITALS: BP 136/82
--- NOTE | 2024-04-14 04:00 | NUR ---
SHIFT SUMMARY 63 YR M ADMITTED ON 03/31/24. FULL CODE. COVID POSITIVE. NO ACUTE CHANGES THIS SHIFT. PT HAS BEEN PLEASANT AND COOPERATIVE WITH CARE. PT APPEARS TO GAVE RESTED COMFORTABLY FOR MOST OF THIS SHIFT. WILL CONTINUE TO MONITOR. BED IN LOW POSITION AND CALL LIGHT IN REACH.
[2024-04-14 06:20] LABS: BASOPHILS PERCENT AUTO 1 % (0-2); EOSINOPHILS ABSOLUTE AUTO 0.42 K/mm3 (0.00-0.68); EOSINOPHILS PERCENT AUTO 4 % (0-6); Hemoglobin 7.9 g/dL (13.5-17.5); IMMATURE GRAN ABSOLUTE AUTO 0.11 K/mm3 (0.00-0.10); IMMATURE GRAN PERCENT AUTO 1 % (0-1); LYMPHOCYTES ABSOLUTE AUTO 2.88 K/mm3 (0.84-5.20); LYMPHOCYTES PERCENT AUTO 25 % (21-46); MONOCYTES PERCENT AUTO 8 % (4-13); Mean Corpuscular HGB 31.6 pg (26.0-34.0); Mean Corpuscular HGB Conc 34.3 g/dL (31.5-36.5); Mean Corpuscular Volume 92 fL (80-100); Mean Platelet Volume 9.6 fL (9.1-12.4); NEUTROPHILS ABSOLUTE AUTO 7.28 K/mm3 (1.96-9.15); NEUTROPHILS PERCENT AUTO 62 % (41-73); Platelet Count 694 K/mm3 (150-400); RDW Coefficient Variation 15.4 % (11.7-14.2); RDW Standard Deviation 50.6 fL (35.1-46.3); White Blood Cell Count 11.69 K/mm3 (4.00-11.30)
[2024-04-14 06:52] LABS: Calcium, Blood 8.2 mg/dL (8.5-10.1); Creatinine, Blood 0.39 mg/dL (0.60-1.20); Potassium, Blood 4.1 mmol/L (3.5-5.5)
[2024-04-14 07:13] VITALS: BP 112/75
--- NOTE | 2024-04-14 15:19 | NUR ---
SHIFT SUMMARY PATIENT IN BED MOST OF SHIFT, USING URINAL. UNWRAPPED SURGICAL SITE THEN REQUESTED IT BE REDRESSED. EDGES APPROXIMATED, CLOSED WITH SUTURES, PATIENT IS DECLINING TO HAVE HIS 2 DAY OLD HARD BOILED EGGS REMOVED FROM HIS ROOM, BECOMES VERY IRRITATED AND ASKS STAFF TO LEAVE WHEN APPROACHED ABOUT THIS, DECLINED ON SEVERAL OCCASIONS FROM MULTIPLE STAFF MEMBERS, EDUCATION PROVIDED. ON ROOM AIR, VITALS STABLE WNL. DECLINING SHOWER SEVERAL TIMES THIS SHIFT. PICC FUNCTIONING PROPERLY, RED BLOOD RETURN, SITE WNL. ABLE TO MAKE NEEDS KNOWN. CALL LIGHT IN REACH. CARES ONGOING.
[2024-04-14 15:24] VITALS: BP 142/80
[2024-04-14 20:27] VITALS: BP 139/97
[2024-04-15 05:06] VITALS: BP 121/75
--- NOTE | 2024-04-15 05:40 | NUR ---
SHIFT SUMMARY: PATIENT CONTINUES TO REPORT CHRONIC LOW BACK PAIN. MEDICATED PER MAR WITH GOOD EFFECT. VSS, APPETITE IS GOOD. PATIENT HAS ONLY HAD NAPS THIS SHIFT. REFUSED TO TAKE A SHOWER, SUPPLIES ARE AVAILABLE WHEN PATIENT IS READY TO SHOWER.
[2024-04-15 07:19] VITALS: BP 132/73
[2024-04-15] MEDS ORDERED: Naloxone HCl 0.4MG / ML 1ML Vial IV PRN (11:00)
[2024-04-15] MEDS ORDERED: HYDROmorphone HCl 2 MG Tab PO PRN (11:05)
[2024-04-15] MEDS ORDERED: HYDROcodone 5-APAP 325 TAB PO SCH (12:00)
[2024-04-15] MEDS ORDERED: Cyclobenzaprine HCl 10 MG Tab PO SCH (14:00)
[2024-04-15 15:31] VITALS: BP 125/76
--- NOTE | 2024-04-15 17:20 | NUR ---
PT STATES PAIN IS OKAY, STATES IT NEVER GETS BETTER THAN 6-7 EVEN WITH ALL THE MEDS TAKEN. REPORTED TO
--- NOTE | 2024-04-15 18:45 | NUR ---
PT PLEASSANT TODAY. ADJUSTED PAIN MEDS TODAY. PT STATES PAIN ALWAYS IS 6-7, NEVER REALLY CHANGES. STATES IS MOSTLY TOLERABLE AT THAT LEVEL. PT RECEIVING ABX. NO NEW CONCERNS NOTED. BED IN LOW POSITIOIN, CALL LITE IN REACH, CALLS APPRP
[2024-04-15 20:22] VITALS: BP 124/88
[2024-04-16 03:37] VITALS: BP 125/75
--- NOTE | 2024-04-16 06:50 | NUR ---
SHIFT SUMMARY: PATIENT HAS HAD GOOD PAIN CONTROL THIS SHIFT WITH SCHEDULED FLEXERIL AND NORCO. VSS, OCCASSIONAL NON PRO COUGH OBSERVED. APPETITE IS GOOD.
[2024-04-16 07:58] VITALS: BP 114/71
[2024-04-16 15:17] VITALS: BP 116/82
[2024-04-16] MEDS ORDERED: CeFAZolin Sodium 1000 mg Vial ONE (16:13)
--- NOTE | 2024-04-16 17:32 | NUR ---
PT HAS HAD NO ACUTE CHANGES PT IS A ONE PERSON STANDY ASSIST. PT WAS ABLE TO HAVE A SHOWER TODAY. PT HAS BEEN COOPERATIVE OF CARE. PT DOES REMOVE BANDAGE ON L ARM. CALL LIGHT WITHIN REACH. NO DISTRESS NOTED.
[2024-04-16 19:56] VITALS: BP 120/65
--- NOTE | 2024-04-16 22:56 | NUR ---
DRESSING CHANGE TO LEFT ARM COMPLETED. SITE IS CLEAN/DRY. 7 STITCHES PRESENT. NO DRAINAGE PRESENT. CLEANSED WITH WOUND CLEANSER. WRAPPED WITH CLEAN CAST WEBBING, WHICH WAS ALREADY PRESENT IN ROOM. AND THEN WRAPPED IN JOE WRAP.
[2024-04-17 03:51] VITALS: BP 119/78
--- NOTE | 2024-04-17 06:05 | NUR ---
PT C/O OF PAIN THROUGH THE NIGHT. MEDICATED PER DR ORDERS. PT RESTED QUIETLY.
[2024-04-17 08:08] VITALS: BP 134/75
[2024-04-17 16:48] VITALS: BP 130/83
--- NOTE | 2024-04-17 17:11 | NUR ---
SHIFT SUMMARY MR SOSA IS A&OX4. PICC LINE R ARM REDRESSED, FLUSHES EASILY. LEFT ARM WOUND CLEANSED AND REDRESSED, PHOTO INTO CHART. TELEPHONE ORDER FROM DR GUTIERREZ THAT SUTURES CAN BE REMOVED. PT C/O PAIN TO LOWER BACK. R RIBS AND LEFT ELBOW. ON SCHEDULED ANALGESICS Q6HRS WHICH APPEAR TO BE HELPING. HE HAS NOT REQUESTED EXTRA PAIN MEDICATIONS. LAST BM RECORDED WAS 04/11. HE SAID HE DOESN'T REMEMBER THE DATE, BUT IT HAS BEEN A FEW DAYS. HE SAID THE SUBJECT OF A LAXATIVE HAS BEEN BROACHED WITH HIM BEFORE AND HE ABSOLUTELY REFUSES TO TAKE A LAXATIVE. HE VERBALISED ACKNOWLEGEMENT THAT NARCOTICS SLOW BOWEL MOTILITY. LEFT ARM PROPPED ON PILLOWS. USING URINAL. REPOSITIOINING HIMSELF IN BED. BED LOW, CALL LIGHT IN REACH, BED ALARM ON.
--- NOTE | 2024-04-17 18:27 | NUR ---
RN NOTE MR SOSA IS NOT READY FOR ME TO REMOVE HIS SUTURES. IT WILL BE PASSED ON TO EVENING SHIFT RN.
[2024-04-17 19:41] VITALS: BP 125/78
[2024-04-18] MEDS ORDERED: Metoprolol Tartrate 1 MG/ML 5 ML VIAL IV ONE (02:15)
--- NOTE | 2024-04-18 03:20 | NUR ---
PT MEDICATD PER DR ORDERS FOR PAIN. RESTED QUIETLY THROUGH THE NIGHT.
[2024-04-18 03:27] VITALS: BP 116/69
[2024-04-18 08:06] VITALS: BP 135/80
--- NOTE | 2024-04-18 17:29 | NUR ---
PT CONT LEVEL OF CARE WITH NO ACUTE CHANGES NOTED. PT IS A&O X4 AND SBA WITH AMBULATION PT HAS CALLED APPROPRATE THIS SHIFT. PT NOTED TO UTILIZE PRN DDILAUDID FOR BREAK THROUGH PAIN X1 THIS SHIFT. PT REMAINS IN ISO D/T COVID POSSITVE. PT REMAINS AFEBRILE DENIES SOB. PT NOTED TO HAVE AN OCCASIONAL NON PRODUCTIVE COUGH.
--- NOTE | 2024-04-18 18:04 | NUR ---
THIS RN ASSISTED IN REMOVED SUTURES LOCATED ON PATIENT'S L ELBOW. PATIENT STATES THAT SUTURES HAVE BEEN PRESENT FOR 2 WEEKS. SITE LOOKS INTACT-CLOSED, AND ABSENT OF SIGNS OR INFECTION. THERE WERE 7 KNOTS PRESENT AND 7 SUTURES WERE REMOVED. PATIENT TOLERATED WELL AND SITE INTACT POST SUTURE REMOVAL. AREA CLEANSED WITH IODINE PAD THAT WAS PROVIDED IN SUTURE REMOVAL KIT.
[2024-04-18 19:44] VITALS: BP 115/80
[2024-04-19 02:50] VITALS: BP 93/74
[2024-04-19 06:13] LABS: BASOPHILS ABSOLUTE AUTO 0.11 K/mm3 (0.00-0.23); BASOPHILS PERCENT AUTO 1 % (0-2); EOSINOPHILS ABSOLUTE AUTO 0.33 K/mm3 (0.00-0.68); EOSINOPHILS PERCENT AUTO 3 % (0-6); Hematocrit 23.6 % (37.0-53.0); Hemoglobin 7.8 g/dL (13.5-17.5); IMMATURE GRAN ABSOLUTE AUTO 0.16 K/mm3 (0.00-0.10); IMMATURE GRAN PERCENT AUTO 1 % (0-1); LYMPHOCYTES ABSOLUTE AUTO 2.94 K/mm3 (0.84-5.20); LYMPHOCYTES PERCENT AUTO 24 % (21-46); MONOCYTES PERCENT AUTO 12 % (4-13); Mean Corpuscular HGB Conc 33.1 g/dL (31.5-36.5); Mean Corpuscular Volume 94 fL (80-100); NEUTROPHILS ABSOLUTE AUTO 7.26 K/mm3 (1.96-9.15); NEUTROPHILS PERCENT AUTO 60 % (41-73); Platelet Count 760 K/mm3 (150-400); RDW Coefficient Variation 16.2 % (11.7-14.2); RDW Standard Deviation 55.3 fL (35.1-46.3); Red Blood Cell Count 2.52 M/mm3 (4.30-5.90)
--- NOTE | 2024-04-19 06:40 | NUR ---
SHIFT SUMMARY PATIENT IS ALERT AND ORIENTED TO ALL. FULL CODE. PLEASANT, TALKATIVE, AND COOPERATIVE WITH CARE. PICC LINE PATENT AND INFUSING. PATIENT COMPLAINS OF LOWER BACK PAIN WHICH IS REPORTED TO BE RESOLVED AFTER MEDICATION ADMINISTRATION. PATIENT UTILIZES URINAL THROUGHOUT THE NIGHT. CALLS APPROPRIATELY AND REPOSITIONS HIMSELF IN BED. BED IS IN THE LOWEST POSITION, CALL LIGHT IS WITHIN REACH. ALL INFORMATION WILL BE REPORTED TO ONCOMING AM NURSE. NO ACUTE CHANGES DURING THIS SHIFT.
[2024-04-19 06:51] LABS: Albumin, Blood 2.5 g/dL (3.4-5.0); Albumin/Globulin Ratio 0.5 (0.8-1.8); Bilirubin, Total 0.1 mg/dL (0.1-1.0); Bun/Creatinine Ratio 27.6 (12.0-20.0); Calcium, Blood 8.6 mg/dL (8.5-10.1); Creatinine, Blood 0.43 mg/dL (0.60-1.20); Globulin, Blood 5.5 g/dL (2.2-4.0); Potassium, Blood 4.2 mmol/L (3.5-5.5)
[2024-04-19 07:40] VITALS: BP 100/64
[2024-04-19 14:54] VITALS: BP 134/81
--- NOTE | 2024-04-19 16:33 | NUR ---
SHIFT SUMMARY PT CONT LEVEL OF CARE WITH NO ACUTE CHANGES NOTED. PT HAS REFUSED TO GET OUT OF BED THIS SHIFT OR MOVE AROUND. PT REMAINS IN ISO D/T COVID POSITIVE BUT REMAINS AFEBRILE AND DENIES N/V/D OR SOB. PT IS NOTED TO HAVE AN OCCOSIONAL NON PRODUCTIVE COUGH AND STATED THAT HE FEELS MORE TIRED AND WEAK THAN NORMAL. PT HAS ATE APPROPERATE THOUGHOUT THIS SHIFT AND HAS EVEN HAS SEVERAL SNACKS BETWEEN MEALS. PLAN IS FOR PT TO DC TO SNF ON MONDAY ONCE PT COMPLETES ISO.
[2024-04-19 19:26] VITALS: BP 139/86
--- NOTE | 2024-04-20 05:01 | NUR ---
SHIFT SUMMARY PATIENT IS ALERT AND ORIENTED TO ALL. FULL CODE. PLEASANT AND COOPERATIVE WITH CARE. VERY TALKATIVE. USES CALL LIGHT APPROPRIATELY. PATIENT USES URINAL WHILE REMAINING IN BED. STANDBY ASSIST. PATIENT DOES NOT GET OUT OF BED DUE TO SEVERE BACK PAIN. BED IS IN LOWEST POSITION, CALL LIGHT IS WITHIN REACH. ALL INFORMATION WILL BE RELAYED TO ONCOMING AM NURSE. NO ACUTE CHANGES DURING SHIFT.
[2024-04-20 05:05] VITALS: BP 113/64
[2024-04-20 07:50] VITALS: BP 122/75
[2024-04-20 15:04] VITALS: BP 117/82
--- NOTE | 2024-04-20 17:32 | NUR ---
SHIFT SUMMARY PATIENT IN BED MOST OF THE SHIFT. RECEIVING PAIN MEDICATIONS SCHEDULED, REQUIRING ONE ADDITIONAL DOSE OF DILAUDED FOR BREAKTHROUGH PAIN. INCISION TO LEFT ARM INTACT, EDGES APPROXIMATED, NO DRESSING, NO SUTURES, NO APPARENT SIGNS OF INFECTION. CALL LIGHT IN REACH, CARES ONGOING.
[2024-04-20 20:33] VITALS: BP 118/74
--- NOTE | 2024-04-21 04:33 | NUR ---
Pt resting quietly at this time. Pt requesting snacks frequently. No distress noted.
[2024-04-21 04:50] VITALS: BP 105/50
--- NOTE | 2024-04-21 17:36 | NUR ---
report received verified, pt did well today pain is better controlled. pt has mora very hungry and continously been asking for food and snack. being that he has lost a significant amount of weight, snacks have been given. pt up in bathroom and shaving. waiting possible discharge tomorrow.
[2024-04-21 20:02] VITALS: BP 130/71
[2024-04-22 02:18] VITALS: BP 122/80
--- NOTE | 2024-04-22 03:56 | NUR ---
pT RESTED QUIETLY THROUGH THE NIGHT. pT MEDICATED FOR PAIN PER DR ORDERS.
[2024-04-22 07:27] LABS: Hematocrit 24.3 % (37.0-53.0); Mean Corpuscular HGB 31.3 pg (26.0-34.0); Mean Corpuscular HGB Conc 32.9 g/dL (31.5-36.5); Mean Corpuscular Volume 95 fL (80-100); Mean Platelet Volume 8.8 fL (9.1-12.4); Platelet Count 660 K/mm3 (150-400); RDW Coefficient Variation 16.6 % (11.7-14.2); RDW Standard Deviation 57.4 fL (35.1-46.3); Red Blood Cell Count 2.56 M/mm3 (4.30-5.90); White Blood Cell Count 12.59 K/mm3 (4.00-11.30)
[2024-04-22 07:37] VITALS: BP 109/72
[2024-04-22 07:45] LABS: Bun/Creatinine Ratio 30.6 (12.0-20.0); Calcium, Blood 8.8 mg/dL (8.5-10.1); Creatinine, Blood 0.52 mg/dL (0.60-1.20); Potassium, Blood 4.2 mmol/L (3.5-5.5)
--- NOTE | 2024-04-22 12:05 | NUR ---
AMA DC-[id number] PT LEFT AMA AFTER FRIEND CAME TO INSTALLATION AND REPAIR TECHNICIAN PT. PT WAS ADVISED ON HIS RISKS VS. BENEFITS FOR LEAVING AMA AND ALL PAPERWORK WAS SIGNED. DR. SNYDER NOTIFIED. PT'S PICC LINE WAS REMOVED PRIOR TO DC. PT LEFT WITH ALL BELONGINGS. PT STATED, "I NEED TO GO BACK TO MY TENT FOR MY BELONGINGS." PT INSISTED ON LEAVING AND DID NOT WANT TO GO TO SNF FOR ABX.
== END 2024-04-22 12:02 | DRG 477 ==
LOC: ER 22:46 → ERHOLD 22:47 → ER 22:47 → MEDS 03-31 08:31
PROVIDERS: Family Medicine; Hospitalist; Internal Medicine; Student in an Organized Health Care Education/Training Program; ADMIT Internal Medicine
PROC: 0RPM04Z Removal of Internal Fixation Device from Left Elbow Joint, Open Approach (ICD-10-PCS; principal; 2024-04-04)
PROC: 0PBL0ZX Excision of Left Ulna, Open Approach, Diagnostic (ICD-10-PCS; 2024-04-04)
PROC: 0RBM0ZZ Excision of Left Elbow Joint, Open Approach (ICD-10-PCS; 2024-04-04)
PROC: HZ2ZZZZ Detoxification Services for Substance Abuse Treatment (ICD-10-PCS; 2024-04-06)
PROC: 02HV33Z Insertion of Infusion Device into Superior Vena Cava, Percutaneous Approach (ICD-10-PCS; 2024-04-11)
DX: T84.59XA Infection and inflammatory reaction due to other internal joint prosthesis, initial encounter (principal); A41.9 Sepsis, unspecified organism; E43 Unspecified severe protein-calorie malnutrition; U07.1 COVID-19; R65.20 Severe sepsis without septic shock; S52.022K Displaced fracture of olecranon process without intraarticular extension of left ulna, subsequent encounter for closed fracture with nonunion; S32.019A Unspecified fracture of first lumbar vertebra, initial encounter for closed fracture; E87.1 Hypo-osmolality and hyponatremia; M00.9 Pyogenic arthritis, unspecified; M86.8X2 Other osteomyelitis, upper arm; Z59.00 Homelessness unspecified; N39.0 Urinary tract infection, site not specified; Z68.1 Body mass index [BMI] 19.9 or less, adult; S32.059A Unspecified fracture of fifth lumbar vertebra, initial encounter for closed fracture; R64 Cachexia; Z53.29 Procedure and treatment not carried out because of patient's decision for other reasons; F15.10 Other stimulant abuse, uncomplicated; E88.09 Other disorders of plasma-protein metabolism, not elsewhere classified; F10.20 Alcohol dependence, uncomplicated; I10 Essential (primary) hypertension; J44.9 Chronic obstructive pulmonary disease, unspecified; F17.210 Nicotine dependence, cigarettes, uncomplicated; M43.8X6 Other specified deforming dorsopathies, lumbar region; Z87.19 Personal history of other diseases of the digestive system; Z79.899 Other long term (current) drug therapy; Z89.411 Acquired absence of right great toe; Y83.8 Other surgical procedures as the cause of abnormal reaction of the patient, or of later complication, without mention of misadventure at the time of the procedure; B95.61 Methicillin susceptible Staphylococcus aureus infection as the cause of diseases classified elsewhere; D50.9 Iron deficiency anemia, unspecified; Z91.041 Radiographic dye allergy status; Z90.81 Acquired absence of spleen; W18.30XA Fall on same level, unspecified, initial encounter
CPT/HCPCS: 36415; 36569; 71045; 72131; 72158; 73080; 80048; 80053; 80069; 80202; 81001; 82607; 82728; 82746; 83540; 83550; 83880; 84484; 85025; 85027; 85651; 86141; 87040; 87071; 87075; 87077; 87086; 87147; 87186; 87205; 93005; 93010; 96361; 96365; 96367; 96372; 96375; 96376; 97110; 97161; 97530; 99285-25; A9270; A9579; C1751; C8929; G0378; J0690; J0696; J1100; J1170; J1650; J1885; J2060; J2270; J2371; J2405; J2543; J2704; J2765; J3010; J3370; J3411; J7030; J7040; J7050; J7120; P9047; Q9957; U0002

== ENCOUNTER 2024-05-01 14:25 | Inpatient (IN) | payer OTHER ==
[~2024-05-01] VITALS: Ht 172.7 cm; Wt 49.6 kg
[~2024-05-01 14:25] MED LIST changes: +FAMO10 PO; +IPRAT-ALBUT 0.5-3 ML NEB; +LOSARTAN POTASS25 M2 PO; +Ondansetron Odt8 MG MM; +PROAIR DIGIHAL90 MCG INH
[2024-05-01] MEDS ORDERED: NS 1,000 ML IV SCH ×3 (14:45→22:50)
[2024-05-01] MEDS ORDERED: Morphine Sulfate 4 MG/1 ML Injection IV ONE (14:45)
[2024-05-01] MEDS ORDERED: Ondansetron HCl 2 MG / ML 2ML Vial IV ONE (14:45)
[2024-05-01 14:58] LABS: BASOPHILS ABSOLUTE AUTO 0.04 K/mm3 (0.00-0.23); BASOPHILS PERCENT AUTO 0 % (0-2); EOSINOPHILS ABSOLUTE AUTO 0.08 K/mm3 (0.00-0.68); EOSINOPHILS PERCENT AUTO 1 % (0-6); Hematocrit 28.2 % (37.0-53.0); IMMATURE GRAN ABSOLUTE AUTO 0.12 K/mm3 (0.00-0.10); IMMATURE GRAN PERCENT AUTO 1 % (0-1); LYMPHOCYTES PERCENT AUTO 14 % (21-46); MONOCYTES ABSOLUTE AUTO 1.09 K/mm3 (0.16-1.47); MONOCYTES PERCENT AUTO 7 % (4-13); Mean Corpuscular HGB 32.4 pg (26.0-34.0); Mean Corpuscular HGB Conc 35.5 g/dL (31.5-36.5); Mean Corpuscular Volume 91 fL (80-100); Mean Platelet Volume 8.9 fL (9.1-12.4); NEUTROPHILS ABSOLUTE AUTO 12.37 K/mm3 (1.96-9.15); NEUTROPHILS PERCENT AUTO 77 % (41-73); Platelet Count 671 K/mm3 (150-400); RDW Coefficient Variation 17.1 % (11.7-14.2); RDW Standard Deviation 56.8 fL (35.1-46.3); Red Blood Cell Count 3.09 M/mm3 (4.30-5.90)
[2024-05-01 15:30] LABS: Albumin, Blood 3.1 g/dL (3.4-5.0); Albumin/Globulin Ratio 0.6 (0.8-1.8); Bilirubin, Total 0.4 mg/dL (0.1-1.0); Bun/Creatinine Ratio 15.2 (12.0-20.0); Calcium, Blood 8.8 mg/dL (8.5-10.1); Creatinine, Blood 0.4 mg/dL (0.60-1.20); Globulin, Blood 5.3 g/dL (2.2-4.0); Magnesium, Blood 1.7 mg/dL (1.6-2.4); Potassium, Blood 3.5 mmol/L (3.5-5.5); Total Protein, Blood 8.4 g/dL (6.4-8.2)
[2024-05-01] MEDS ORDERED: DICY20 PO (16:56)
[2024-05-01] MEDS ORDERED: ONDA4 PO (16:56)
[2024-05-01 16:57] LABS: Source, Urine Clean Catch
[2024-05-01 17:01] LABS: Appearance, Urine Clear (Clear); Bilirubin, Urine Neg (Neg); Blood, Urine Neg (Neg); Color, Urine Yellow (P-Yellow); Glucose Qualitative, Urine Neg (Neg); Ketones, Urine 2+ (Neg); Leukocyte Esterase, Urine Neg (Neg); Nitrite, Urine Neg (Neg); Protein, Urine Neg (Neg); Urobilinogen, Urine NORM (Normal)
[2024-05-01] MEDS ORDERED: Acetaminophen 325 MG TABLET PO PRN (18:05)
[2024-05-01] MEDS ORDERED: OxyCODONE HCL 5 MG TAB PO PRN (18:05)
[2024-05-01] MEDS ORDERED: Albuterol 2.5 MG/3 ML VIAL INH PRN (18:05)
[2024-05-01] MEDS ORDERED: Ondansetron HCl 2 MG / ML 2ML Vial IV PRN ×2 (18:05→22:55)
[2024-05-01 19:35] LABS: Bun/Creatinine Ratio 16.3 (12.0-20.0); Calcium, Blood 7.4 mg/dL (8.5-10.1); Creatinine, Blood 0.31 mg/dL (0.60-1.20); Potassium, Blood 3.5 mmol/L (3.5-5.5)
[2024-05-01] MEDS ORDERED: CeFAZolin Sodium 2,000 MG in NS 100 ML IV ONE (19:40)
[2024-05-01] MEDS ORDERED: Sodium Chloride 0.45% 1,000 ML IV SCH (20:20)
[2024-05-01 22:29] VITALS: BP 142/102
[2024-05-01] MEDS ORDERED: Metoclopramide HCl 5MG / ML 2ML Vial IV PRN (22:50)
[2024-05-01] MEDS ORDERED: Calcium Carbonate 500 MG Tab Chew PO PRN (22:50)
[2024-05-02] MEDS ORDERED: CeFAZolin Sodium 2,000 MG in NS 100 ML IV SCH (02:00)
[2024-05-02 04:13] VITALS: BP 131/83
[2024-05-02 05:24] LABS: BASOPHILS ABSOLUTE AUTO 0.04 K/mm3 (0.00-0.23); BASOPHILS PERCENT AUTO 0 % (0-2); EOSINOPHILS ABSOLUTE AUTO 0.05 K/mm3 (0.00-0.68); EOSINOPHILS PERCENT AUTO 0 % (0-6); Hematocrit 29.3 % (37.0-53.0); Hemoglobin 10.2 g/dL (13.5-17.5); IMMATURE GRAN ABSOLUTE AUTO 0.11 K/mm3 (0.00-0.10); IMMATURE GRAN PERCENT AUTO 1 % (0-1); LYMPHOCYTES ABSOLUTE AUTO 1.51 K/mm3 (0.84-5.20); LYMPHOCYTES PERCENT AUTO 10 % (21-46); MONOCYTES ABSOLUTE AUTO 0.83 K/mm3 (0.16-1.47); MONOCYTES PERCENT AUTO 5 % (4-13); Mean Corpuscular HGB 32.2 pg (26.0-34.0); Mean Corpuscular HGB Conc 34.8 g/dL (31.5-36.5); Mean Corpuscular Volume 92 fL (80-100); Mean Platelet Volume 9.2 fL (9.1-12.4); NEUTROPHILS PERCENT AUTO 84 % (41-73); Platelet Count 683 K/mm3 (150-400); RDW Coefficient Variation 17.2 % (11.7-14.2); RDW Standard Deviation 57.5 fL (35.1-46.3); Red Blood Cell Count 3.17 M/mm3 (4.30-5.90); White Blood Cell Count 15.64 K/mm3 (4.00-11.30)
--- NOTE | 2024-05-02 05:46 | NUR ---
END OF SHIFT SUMMARY NEW ADMIT, HYPONATREMIA. MD NOTIFIED OF CONTINUED LOW NA, ORDERS RECD FOR IVF CHANGE TO NS @150, LABS TRENDING UP. MEDICATED FOR ABD PAIN AND NAUSEA ALONG WITH HEARTBURN.
[2024-05-02 05:47] LABS: Bun/Creatinine Ratio 12.3 (12.0-20.0); Calcium, Blood 8.7 mg/dL (8.5-10.1); Creatinine, Blood 0.41 mg/dL (0.60-1.20); Magnesium, Blood 1.7 mg/dL (1.6-2.4); Potassium, Blood 3.7 mmol/L (3.5-5.5)
[2024-05-02 07:35] VITALS: BP 129/86
[2024-05-02] MEDS ORDERED: Ferrous Sulfate 325 MG Tab PO SCH (08:00)
[2024-05-02] MEDS ORDERED: Enoxaparin 40 MG/0.4 ML SYR SC SCH (09:00)
[2024-05-02] MEDS ORDERED: Nicotine 14 MG PATCH TOP ONE (12:15)
[2024-05-02 15:51] VITALS: BP 115/76
--- NOTE | 2024-05-02 16:57 | NUR ---
SHIFT SUMMARY: PATIENT IS A&OX4/SBA; MAKES NEEDS KNOWN. HE HAS BEEN PLEASANT AND COOPERATIVE WITH CARE. HE HAS ADVANCED TO A REGULAR DIET-LOW FAT AND LOW FIBER. TOLERATING WELL. PATIENT CONTINUES TO GET NORMAL SALINE AT 150ML/HR; REPEAT SODIUM THIS AFTERNOON 127. PATIENT TOOK A SHOWER TODAY. HE IS IN BED, CALL LIGHT WITHIN REACH, NO SIGNS OR SYMPTOMS OF DISTRESS, PLAN OF CARE ONGOING.
[2024-05-02 19:46] VITALS: BP 131/73
[2024-05-03 02:50] VITALS: BP 121/69
[2024-05-03 04:49] LABS: BASOPHILS ABSOLUTE AUTO 0.02 K/mm3 (0.00-0.23); BASOPHILS PERCENT AUTO 0 % (0-2); EOSINOPHILS ABSOLUTE AUTO 0.13 K/mm3 (0.00-0.68); EOSINOPHILS PERCENT AUTO 2 % (0-6); Hematocrit 23.2 % (37.0-53.0); IMMATURE GRAN ABSOLUTE AUTO 0.04 K/mm3 (0.00-0.10); IMMATURE GRAN PERCENT AUTO 1 % (0-1); LYMPHOCYTES PERCENT AUTO 16 % (21-46); MONOCYTES ABSOLUTE AUTO 0.97 K/mm3 (0.16-1.47); MONOCYTES PERCENT AUTO 12 % (4-13); Mean Corpuscular HGB Conc 34.5 g/dL (31.5-36.5); Mean Corpuscular Volume 93 fL (80-100); Mean Platelet Volume 8.9 fL (9.1-12.4); NEUTROPHILS ABSOLUTE AUTO 5.88 K/mm3 (1.96-9.15); NEUTROPHILS PERCENT AUTO 71 % (41-73); Platelet Count 538 K/mm3 (150-400); RDW Coefficient Variation 17.6 % (11.7-14.2); RDW Standard Deviation 59.8 fL (35.1-46.3); White Blood Cell Count 8.34 K/mm3 (4.00-11.30)
[2024-05-03 05:20] LABS: Bun/Creatinine Ratio 10.4 (12.0-20.0); Calcium, Blood 7.6 mg/dL (8.5-10.1); Creatinine, Blood 0.39 mg/dL (0.60-1.20); Potassium, Blood 3.4 mmol/L (3.5-5.5)
--- NOTE | 2024-05-03 05:40 | NUR ---
END OF SHIFT SUMMARY NO ACUTE EVENTS OVERNIGHT. PT C/O NAUSEA X1 BUT REQUESTING FREQUENT SNACKS AND COFFEE/TEA AND TOLERATED WELL, NO VOMITING, ZOFRAN GIVEN X1. MEDICATED FOR EPIGASTRIC PAIN AND HEARTBURN. IVF INFUSING.
[2024-05-03] MEDS ORDERED: Potassium Chloride 20 MEQ TabCR PO ONE (07:00)
[2024-05-03 07:06] LABS: Magnesium, Blood 1.8 mg/dL (1.6-2.4)
[2024-05-03 07:18] VITALS: BP 126/70
[2024-05-03] MEDS ORDERED: Nicotine 14 MG PATCH TOP SCH (09:00)
[2024-05-03] MEDS ORDERED: Potassium Phosphate Dibasic 20 MM in Dextrose 5% 500 ML IV STA (09:58)
--- NOTE | 2024-05-03 10:16 | NUR ---
CALL MADE TO DR. ESPINAL REGUARDING POTASSIUM/DEXTROSE ORDER DUE TO PATIENT GETTING ORAL SUPPLEMENTATION ALREADY THIS MORNING FOR A POTASSIUM OF 3.4. PER DR. ESPINAL TO STILL GIVE IV POTASSIUM ORDERED.
[2024-05-03] MEDS ORDERED: Acetaminophen325 M1 PO (12:57)
[2024-05-03] MEDS ORDERED: FERSU300 PO (12:59)
[2024-05-03] MEDS ORDERED: VISBIOME 112.51 EACH PO (13:00)
[2024-05-03] MEDS ORDERED: CEPH500 PO (13:04)
--- NOTE | 2024-05-03 13:12 | NUR ---
CLARIFIED KEFLEX DOSING WITH DR. ESPINAL BASED IN MED REC. HE WANTS THE PATIENT TO TAKE 1000MG TWICE DAILY OR 2X500 MG CAPSULES TWICE DAILY FOR ONE MONTH. CALLED AND CLARIFIED THIS WITH THE PHARMACIST PETERSON AT [facility].
[2024-05-03 13:14] LABS: Hematocrit 24.5 % (37.0-53.0); Hemoglobin 8.5 g/dL (13.5-17.5)
[2024-05-03 14:46] VITALS: BP 136/74
--- NOTE | 2024-05-03 15:35 | NUR ---
DISCHARGE NOTE: PATIENT COMPLETED IV POTASSIUM INFUSION. HIS IV WAS FLUSHED AND REMOVED. WENT OVER DISCHARGE WITH PATIENT; PATIENT SIGNED PAPER, BUT DECLINED TO TAKE HIS PACKET; STATING THAT ITS JUST ANOTHER THING FOR HIM TO CARRY, HE CAN'T BURN IT DUE TO FIRE SEASON, AND HE ALREADY KNOWS WHAT IT SAYS. PATIENT BEGAN GETTING HIMSELF DRESSED AND GATHERING HIS BELONGINGS. TAXI SET UP TO RAND TACKER PATIENT FROM [facility] AROUND 1600. NO SIGNS OR SYMPTOMS OF DISTRESS DURING DISCHARGE.
== END 2024-05-03 15:45 | disposition home or self-care (01) | DRG 640 ==
LOC: ER 14:25 → EOR 14:26 → MEDS 22:13
PROVIDERS: Emergency Medicine; Nurse Practitioner Acute Care; Student in an Organized Health Care Education/Training Program; ADMIT Hospitalist
DX: E87.1 Hypo-osmolality and hyponatremia (principal); K85.20 Alcohol induced acute pancreatitis without necrosis or infection; Z59.00 Homelessness unspecified; J44.9 Chronic obstructive pulmonary disease, unspecified; L72.9 Follicular cyst of the skin and subcutaneous tissue, unspecified; B95.61 Methicillin susceptible Staphylococcus aureus infection as the cause of diseases classified elsewhere; D50.9 Iron deficiency anemia, unspecified; F15.10 Other stimulant abuse, uncomplicated; F17.210 Nicotine dependence, cigarettes, uncomplicated; F10.20 Alcohol dependence, uncomplicated; I10 Essential (primary) hypertension; Z71.41 Alcohol abuse counseling and surveillance of alcoholic; Z71.6 Tobacco abuse counseling; Z71.51 Drug abuse counseling and surveillance of drug abuser; Z90.81 Acquired absence of spleen
CPT/HCPCS: 36415; 71045; 74177; 80048; 80053; 81003; 82533; 83690; 83735; 83930; 83935; 84100; 84145; 84295; 84300; 84443; 84484; 85014; 85018; 85025; 93005; 93010; 94760; 96374; 96375; 99285-25; A9270; G0378; J0690; J2270; J2405; J2765; J7030; J7060; Q9967

== ENCOUNTER 2024-06-27 15:12 | Observation (INO) | payer OTHER ==
[~2024-06-27] VITALS: Ht 167.6 cm; Wt 44.2 kg
[~2024-06-27 15:12] MED LIST changes: +Acetaminophen325 M1 PO; +CEPH500 PO; +DICY20 PO; +FERSU300 PO; +VISBIOME 112.51 EACH PO
[2024-06-27 16:29] LABS: BASOPHILS ABSOLUTE AUTO 0.02 K/mm3 (0.00-0.23); BASOPHILS PERCENT AUTO 0 % (0-2); EOSINOPHILS ABSOLUTE AUTO 0.01 K/mm3 (0.00-0.68); EOSINOPHILS PERCENT AUTO 0 % (0-6); Hematocrit 26.5 % (37.0-53.0); Hemoglobin 9.5 g/dL (13.5-17.5); IMMATURE GRAN ABSOLUTE AUTO 0.11 K/mm3 (0.00-0.10); IMMATURE GRAN PERCENT AUTO 1 % (0-1); LYMPHOCYTES ABSOLUTE AUTO 0.98 K/mm3 (0.84-5.20); LYMPHOCYTES PERCENT AUTO 8 % (21-46); MONOCYTES PERCENT AUTO 3 % (4-13); Mean Corpuscular HGB 31.9 pg (26.0-34.0); Mean Corpuscular HGB Conc 35.8 g/dL (31.5-36.5); Mean Corpuscular Volume 89 fL (80-100); Mean Platelet Volume 10.8 fL (9.1-12.4); NEUTROPHILS ABSOLUTE AUTO 10.45 K/mm3 (1.96-9.15); NEUTROPHILS PERCENT AUTO 87 % (41-73); Platelet Count 362 K/mm3 (150-400); RDW Coefficient Variation 17.3 % (11.7-14.2); RDW Standard Deviation 56.3 fL (35.1-46.3); Red Blood Cell Count 2.98 M/mm3 (4.30-5.90); White Blood Cell Count 11.97 K/mm3 (4.00-11.30)
[2024-06-27 16:34] LABS: Albumin, Blood 2.6 g/dL (3.4-5.0); Albumin/Globulin Ratio 0.6 (0.8-1.8); Bilirubin, Total 0.3 mg/dL (0.1-1.0); Bun/Creatinine Ratio 25.8 (12.0-20.0); Calcium, Blood 8.2 mg/dL (8.5-10.1); Creatinine, Blood 0.62 mg/dL (0.60-1.20); Globulin, Blood 4.3 g/dL (2.2-4.0); Potassium, Blood 4.5 mmol/L (3.5-5.5); Total Protein, Blood 6.9 g/dL (6.4-8.2)
[2024-06-27] MEDS ORDERED: NS 1,000 ML IV SCH ×2 (16:40→22:10)
[2024-06-27] MEDS ORDERED: Morphine Sulfate 4 MG/1 ML Injection IV ONE (18:25)
[2024-06-27] MEDS ORDERED: HYDROmorphone HCl 2 MG Tab PO ONE (19:45)
[2024-06-27] MEDS ORDERED: Ondansetron HCl 2 MG / ML 2ML Vial IV ONE (19:45)
[2024-06-27] MEDS ORDERED: FLU VACC TS2024-25(6MOS UP)/PF 45 MCG/0.5 ML SYRINGE IM ONE (22:10)
[2024-06-27] MEDS ORDERED: Ondansetron HCl 2 MG / ML 2ML Vial IV PRN (22:10)
[2024-06-27] MEDS ORDERED: HYDROmorphone HCl/Pf 1MG SYR IV PRN (22:45)
[2024-06-28] MEDS ORDERED: NS 1,000 ML IV ONE (04:48)
[2024-06-28 05:03] LABS: Red Blood Cell Count 2.88 M/mm3 (4.30-5.90)
[2024-06-28 05:31] LABS: Albumin, Blood 2.4 g/dL (3.4-5.0); Albumin/Globulin Ratio 0.6 (0.8-1.8); Bilirubin, Total 0.2 mg/dL (0.1-1.0); Bun/Creatinine Ratio 24.7 (12.0-20.0); Calcium, Blood 8.2 mg/dL (8.5-10.1); Creatinine, Blood 0.45 mg/dL (0.60-1.20); Globulin, Blood 3.9 g/dL (2.2-4.0); Total Protein, Blood 6.3 g/dL (6.4-8.2)
[2024-06-28 05:33] LABS: Hematocrit 26.2 % (37.0-53.0); Hemoglobin 9.1 g/dL (13.5-17.5); Mean Corpuscular HGB 31.6 pg (26.0-34.0); Mean Corpuscular HGB Conc 34.7 g/dL (31.5-36.5); Mean Corpuscular Volume 91 fL (80-100); Mean Platelet Volume 10.8 fL (9.1-12.4); Platelet Count 332 K/mm3 (150-400); RDW Coefficient Variation 17.6 % (11.7-14.2); RDW Standard Deviation 59.4 fL (35.1-46.3)
[2024-06-28 05:46] LABS: BASOPHILS ABSOLUTE AUTO 0.01 K/mm3 (0.00-0.23); BASOPHILS PERCENT AUTO 0 % (0-2); EOSINOPHILS ABSOLUTE AUTO 0.02 K/mm3 (0.00-0.68); EOSINOPHILS PERCENT AUTO 0 % (0-6); IMMATURE GRAN ABSOLUTE AUTO 0.03 K/mm3 (0.00-0.10); IMMATURE GRAN PERCENT AUTO 1 % (0-1); LYMPHOCYTES ABSOLUTE AUTO 1.33 K/mm3 (0.84-5.20); LYMPHOCYTES PERCENT AUTO 20 % (21-46); MONOCYTES ABSOLUTE AUTO 0.55 K/mm3 (0.16-1.47); MONOCYTES PERCENT AUTO 8 % (4-13); NEUTROPHILS ABSOLUTE AUTO 4.58 K/mm3 (1.96-9.15); NEUTROPHILS PERCENT AUTO 70 % (41-73); White Blood Cell Count 6.52 K/mm3 (4.00-11.30)
[2024-06-28 06:12] VITALS: BP 121/80
--- NOTE | 2024-06-28 06:51 | NUR ---
ADMIT NOTE I CALLED ER AND RECEIVED REPORT. PT WAS BROUGHT DOWN VIA W/C AT 0555. PT ALERT ORIENTED ABLE TO VERBALIZE NEEDS. VSS ON RA. C/O ABD TENDERNESS BUT JUST REQUESTING FOOD AND BROTH. REMAINS ON A CLEAR LIQUID DIET. HE IS HOMELESS BUT STATED THAT HE CAN STAY AT HIS DADS. NO C/O NAUSEA. PT WAS ORIENTED TO ROOM AND FACILITY.
[2024-06-28] MEDS ORDERED: Albuterol HFA200 ACT/6.7 GM INH INH PRN (07:15)
[2024-06-28 07:57] VITALS: BP 115/78
[2024-06-28 08:48] LABS: Magnesium, Blood 1.9 mg/dL (1.6-2.4); Phosphorus, Blood 2.1 mg/dL (2.5-4.9)
[2024-06-28] MEDS ORDERED: Enoxaparin 40 MG/0.4 ML SYR SC SCH (09:00)
[2024-06-28] MEDS ORDERED: Nicotine 14 MG PATCH TOP SCH (09:00)
[2024-06-28] MEDS ORDERED: Losartan Potassium 25 MG Tab PO ONE (09:35)
[2024-06-28] MEDS ORDERED: Thiamine HCl 100 MG Tab PO SCH (09:55)
[2024-06-28] MEDS ORDERED: Multivitamins 1 Tab PO SCH (09:55)
[2024-06-28 13:08] LABS: Albumin, Blood 2.4 g/dL (3.4-5.0); Albumin/Globulin Ratio 0.6 (0.8-1.8); Bilirubin, Total 0.2 mg/dL (0.1-1.0); Bun/Creatinine Ratio 23.7 (12.0-20.0); Calcium, Blood 8.2 mg/dL (8.5-10.1); Creatinine, Blood 0.38 mg/dL (0.60-1.20); Globulin, Blood 3.8 g/dL (2.2-4.0); Phosphorus, Blood 1.7 mg/dL (2.5-4.9); Potassium, Blood 4.3 mmol/L (3.5-5.5); Total Protein, Blood 6.2 g/dL (6.4-8.2)
[2024-06-28] MEDS ORDERED: Ketorolac Tromethamine 15mg Vial IV PRN (13:25)
[2024-06-28 15:33] VITALS: BP 108/67
--- NOTE | 2024-06-28 16:02 | NUR ---
PATIENT ON A FULL LIQUID DIET. ADVANCE TOLERATED. HE DENIES ANY NAUSEA OR VOMITTING. IS ABLE TO TAKE SHOWER WITHOUT ASSIST TODAY. CHOOSES TO REMAIN IN BED DURING DAY PLAYING GAMES ON HIS PHONE. ATTMEPTS TO GET HIM UP TO CHAIR ARE MET WITH MUCH RESISTANCE. IV FLUIDS INFUSING (2ND) BAG ORDERED. VITAL SIGNS ARE STABLE AND HE IS NOT FEBRILE. HE IS MEDICATED X 1 WITH DILAUDID IV PRIOR TO THIS BEING DC'D. HE NOW HAS TORADOL ORDERED IV AND PATIENT NOT ASKING AT THIS TIME FOR PAIN MEDS. WILL CONTINUE TO MONITOR THIS PATIENT CLOSELY UNTIL REPORT AND HAND OFF TO NOC SHIFT RN.
[2024-06-28] MEDS ORDERED: Magnesium Hydroxide Conc 10 ML UDC PO PRN (19:45)
[2024-06-28 20:02] VITALS: BP 115/69
[2024-06-28] MEDS ORDERED: Docusate Sodium 100 MG Cap PO SCH (21:00)
[2024-06-28] MEDS ORDERED: Sennosides 8.6 MG Tab PO SCH (21:00)
[2024-06-29 02:32] VITALS: BP 109/65
[2024-06-29 05:16] LABS: Hematocrit 23.9 % (37.0-53.0); Hemoglobin 8.4 g/dL (13.5-17.5); Mean Corpuscular HGB 32.2 pg (26.0-34.0); Mean Corpuscular HGB Conc 35.1 g/dL (31.5-36.5); Mean Corpuscular Volume 92 fL (80-100); Platelet Count 300 K/mm3 (150-400); RDW Coefficient Variation 17.9 % (11.7-14.2); RDW Standard Deviation 60.5 fL (35.1-46.3); Red Blood Cell Count 2.61 M/mm3 (4.30-5.90)
[2024-06-29 05:27] LABS: Albumin, Blood 2.2 g/dL (3.4-5.0); Albumin/Globulin Ratio 0.6 (0.8-1.8); Bilirubin, Total 0.2 mg/dL (0.1-1.0); Bun/Creatinine Ratio 13.5 (12.0-20.0); Calcium, Blood 7.6 mg/dL (8.5-10.1); Creatinine, Blood 0.45 mg/dL (0.60-1.20); Globulin, Blood 3.8 g/dL (2.2-4.0); Magnesium, Blood 1.6 mg/dL (1.6-2.4); Phosphorus, Blood 1.5 mg/dL (2.5-4.9); Potassium, Blood 4.5 mmol/L (3.5-5.5)
[2024-06-29 05:37] LABS: White Blood Cell Count 6.72 K/mm3 (4.00-11.30)
[2024-06-29 07:07] LABS: BAND PERCENT MAN 1 % (0-8); BASOPHILS PERCENT MAN 0 % (0-2); EOSINOPHILS PERCENT MAN 0 % (0-6); LYMPHOCYTES ABSOLUTE MAN 0.87 K/mm3 (0.84-5.20); LYMPHOCYTES PERCENT MAN 13 % (21-46); MONOCYTES PERCENT MAN 6 % (4-13); NEUTROPHILS ABSOLUTE MAN 5.44 K/mm3 (1.96-9.15); SEG NEUTROPHILS PERCENT MAN 80 % (41-73); TOTAL CELLS COUNTED 100
[2024-06-29 07:25] VITALS: BP 118/81
--- NOTE | 2024-06-29 07:39 | NUR ---
AO4 PT RECIEVED 2ND BAG OF NS, MEDICATED PER EMAR FOR PAIN TO "PANCREAS' PER PT. NO C/O NAUSEA HAD APPETITE ATE SANDWHICH PUDDING TAYLOR CRACKERS AND MILK TOLERATED WELL. REFUSED BOWEL MEDICATION"TOO LATE" WOULD LIKE IN AM. R AC ACCESS PATENT. FALL PRECAUTIONS IN PLACE CALL LIGHT WN REACH.
[2024-06-29] MEDS ORDERED: Sodium Phosphate Mono/Dibasic 250 MG Tab PO SCH (08:00)
[2024-06-29] MEDS ORDERED: Mag Sulfate 1 GM/D5% 100ML 100 ML IV STA (08:23)
[2024-06-29] MEDS ORDERED: Polyethylene Glycol 3350 17 gm PO PRN (15:00)
[2024-06-29] MEDS ORDERED: Polyethylene Glycol 3350 17 gm PO ONE (15:00)
[2024-06-29 15:04] VITALS: BP 118/81
--- NOTE | 2024-06-29 18:41 | NUR ---
PT IRRITABLE AND GRUFF TODAY. OCCATIONALLY SNAPS AT STAFF. LUNGS LIGHTLY COARSE T/O. NO BM YET, BUT STATES NOW PASSING GAS. M.O.M. AND MIRALAX GIVEN IN ADDITION TO REGULAR MEDS TODAY. EXPECTING D/C AFTER PASSES STOOL. NO NEW CONCERNS NOTED. BED IN LOW POSITION, CALLLITE IN REACH, CALLS APPRPO
[2024-06-29 19:59] VITALS: BP 115/76
[2024-06-30 02:22] VITALS: BP 119/72
[2024-06-30 05:07] LABS: BASOPHILS ABSOLUTE AUTO 0.01 K/mm3 (0.00-0.23); BASOPHILS PERCENT AUTO 0 % (0-2); EOSINOPHILS ABSOLUTE AUTO 0.01 K/mm3 (0.00-0.68); EOSINOPHILS PERCENT AUTO 0 % (0-6); Hematocrit 24.5 % (37.0-53.0); Hemoglobin 8.6 g/dL (13.5-17.5); IMMATURE GRAN ABSOLUTE AUTO 0.02 K/mm3 (0.00-0.10); IMMATURE GRAN PERCENT AUTO 0 % (0-1); LYMPHOCYTES ABSOLUTE AUTO 1.59 K/mm3 (0.84-5.20); LYMPHOCYTES PERCENT AUTO 24 % (21-46); MONOCYTES ABSOLUTE AUTO 0.46 K/mm3 (0.16-1.47); MONOCYTES PERCENT AUTO 7 % (4-13); Mean Corpuscular HGB 31.7 pg (26.0-34.0); Mean Corpuscular HGB Conc 35.1 g/dL (31.5-36.5); Mean Corpuscular Volume 90 fL (80-100); Mean Platelet Volume 10.7 fL (9.1-12.4); NEUTROPHILS ABSOLUTE AUTO 4.42 K/mm3 (1.96-9.15); NEUTROPHILS PERCENT AUTO 68 % (41-73); Platelet Count 270 K/mm3 (150-400); RDW Coefficient Variation 17.4 % (11.7-14.2); RDW Standard Deviation 58.1 fL (35.1-46.3); Red Blood Cell Count 2.71 M/mm3 (4.30-5.90); White Blood Cell Count 6.51 K/mm3 (4.00-11.30)
[2024-06-30 05:31] LABS: Bun/Creatinine Ratio 18.9 (12.0-20.0); Calcium, Blood 7.9 mg/dL (8.5-10.1); Creatinine, Blood 0.37 mg/dL (0.60-1.20); Magnesium, Blood 1.9 mg/dL (1.6-2.4); Phosphorus, Blood 1.9 mg/dL (2.5-4.9); Potassium, Blood 4.4 mmol/L (3.5-5.5)
[2024-06-30 07:09] VITALS: BP 131/82
--- NOTE | 2024-06-30 07:18 | NUR ---
ao4 pt with some agitation r/t discharge, pt reported constipation this night however reports he had a bowemovent yesterday that it was"fine", and that he would be be dscharging in the am. pt w nausea recieved zofran with some relief, pt reports "pancreas" pain medicated per emar, pt also showered. Fall precautions in place call light wn reach.
[2024-06-30] MEDS ORDERED: ALBU90OI INH (09:55)
[2024-06-30] MEDS ORDERED: MELO7.5 PO (09:56)
[2024-06-30] MEDS ORDERED: MIRALAX17 GM PO (09:56)
[2024-06-30] MEDS ORDERED: B-1100 M1 PO (09:57)
[2024-06-30] MEDS ORDERED: K-Phos Origina500 MG PO (09:57)
--- NOTE | 2024-06-30 10:27 | NUR ---
DISCHARGE REIVEWED WITH PT. HE VERBALIZED UNDERSTANDING MEDS AND INST. IV PULLED INTACT BY ME. NO TELE. PT DRESSED SELF. AWAITING RIDE IN A FEW MOMENTS PER PT.
--- NOTE | 2024-06-30 11:10 | NUR ---
WHEELED PT TO DOOR AT 1100
== END 2024-06-30 11:00 | disposition home or self-care (01) ==
LOC: ER 15:12 → ERHOLD 15:13 → MEDS 15:13
PROVIDERS: Family Medicine; Internal Medicine; Student in an Organized Health Care Education/Training Program; ADMIT Student in an Organized Health Care Education/Training Program
DX: K86.1 Other chronic pancreatitis (principal); K85.90 Acute pancreatitis without necrosis or infection, unspecified; K59.00 Constipation, unspecified; E83.39 Other disorders of phosphorus metabolism; E87.1 Hypo-osmolality and hyponatremia; E83.42 Hypomagnesemia; E43 Unspecified severe protein-calorie malnutrition; S22.9XXA Fracture of bony thorax, part unspecified, initial encounter for closed fracture; F10.90 Alcohol use, unspecified, uncomplicated; J44.9 Chronic obstructive pulmonary disease, unspecified; D50.9 Iron deficiency anemia, unspecified; F17.210 Nicotine dependence, cigarettes, uncomplicated; Z79.899 Other long term (current) drug therapy; W18.30XA Fall on same level, unspecified, initial encounter
CPT/HCPCS: 36415; 72070; 72100; 74177; 80048; 80053; 83690; 83735; 84100; 85025; 94640; 94664; 94760; 96361; 96365; 96372; 96374; 96375; 96376; 99285-25; A9270; G0378; J1650; J1885; J2405; J3475; J7030; Q9967

== ENCOUNTER 2024-11-05 05:12 | Emergency (ER) | payer OTHER ==
[~2024-11-05] VITALS: Ht 170.2 cm; Wt 56.7 kg
[~2024-11-05 05:12] MED LIST changes: +ALBU90OI INH; +B-1100 M1 PO; +K-Phos Origina500 MG PO; +MELO7.5 PO; +MIRALAX17 GM PO
[2024-11-05] MEDS ORDERED: Ketorolac Tromethamine 30mg Vial IM ONE (05:30)
[2024-11-05] MEDS ORDERED: Lidocaine 4% 1 Patch TOP ONE (05:40)
[2024-11-05] MEDS ORDERED: HYDR1TAB94 PO (06:18)
[2024-11-05] MEDS ORDERED: LIDO700A20 TOP (06:18)
[2024-11-05] MEDS ORDERED: OxyCODONE 7.5 mg/Acetam 325 mg TABLET PO ONE (06:20)
[2024-11-05 09:50] VITALS: BP 116/75
== END 2024-11-05 09:51 | disposition home or self-care (01) ==
LOC: ER 05:12
DX: S22.9XXA Fracture of bony thorax, part unspecified, initial encounter for closed fracture (principal); S27.9XXA Injury of unspecified intrathoracic organ, initial encounter; S32.018A Other fracture of first lumbar vertebra, initial encounter for closed fracture; W18.30XA Fall on same level, unspecified, initial encounter; M54.50 Low back pain, unspecified; F17.210 Nicotine dependence, cigarettes, uncomplicated; I10 Essential (primary) hypertension; J44.9 Chronic obstructive pulmonary disease, unspecified
CPT/HCPCS: 72100; 96372; 99283-25; A9270; J1885

== ENCOUNTER 2024-11-13 14:12 | Inpatient (IN) | payer OTHER ==
[~2024-11-13] VITALS: Ht 167.6 cm; Wt 58.2 kg
[~2024-11-13 14:12] MED LIST changes: +HYDR1TAB94 PO; +LIDO700A20 TOP
[2024-11-13 15:16] LABS: BASOPHILS ABSOLUTE AUTO 0.07 K/mm3 (0.00-0.23); BASOPHILS PERCENT AUTO 0 % (0-2); EOSINOPHILS ABSOLUTE AUTO 0.01 K/mm3 (0.00-0.68); EOSINOPHILS PERCENT AUTO 0 % (0-6); Hematocrit 31.7 % (37.0-53.0); Hemoglobin 11.5 g/dL (13.5-17.5); IMMATURE GRAN ABSOLUTE AUTO 0.26 K/mm3 (0.00-0.10); IMMATURE GRAN PERCENT AUTO 1 % (0-1); LYMPHOCYTES ABSOLUTE AUTO 1.66 K/mm3 (0.84-5.20); LYMPHOCYTES PERCENT AUTO 7 % (21-46); MONOCYTES ABSOLUTE AUTO 1.34 K/mm3 (0.16-1.47); MONOCYTES PERCENT AUTO 6 % (4-13); Mean Corpuscular HGB 31.4 pg (26.0-34.0); Mean Corpuscular HGB Conc 36.3 g/dL (31.5-36.5); Mean Corpuscular Volume 87 fL (80-100); Mean Platelet Volume 10.3 fL (9.1-12.4); NEUTROPHILS PERCENT AUTO 86 % (41-73); NRBC ABSOLUTE 0.05 K/mm3 (0.00-0.02); NRBC Auto 0.2 /100 WBC (0.0-0.2); Platelet Count 301 K/mm3 (150-400); RDW Coefficient Variation 14.8 % (11.7-14.2); RDW Standard Deviation 46.8 fL (35.1-46.3); Red Blood Cell Count 3.66 M/mm3 (4.30-5.90); White Blood Cell Count 24.14 K/mm3 (4.00-11.30)
[2024-11-13 16:06] LABS: Albumin/Globulin Ratio 0.4 (0.8-1.8); Bun/Creatinine Ratio 22.7 (12.0-20.0); Calcium, Blood 8.5 mg/dL (8.5-10.1); Creatinine, Blood 0.53 mg/dL (0.60-1.20); Potassium, Blood 3.9 mmol/L (3.5-5.5)
[2024-11-13] MEDS ORDERED: NS 1,000 ML IV SCH ×2 (16:15→20:05)
[2024-11-13] MEDS ORDERED: Ketorolac Tromethamine 15mg Vial IV ONE (16:35)
[2024-11-13] MEDS ORDERED: FentaNYL Citrate 50 MCG/ML 2 ML Injection IV ONE ×2 (17:00→17:30)
[2024-11-13] MEDS ORDERED: Vancomycin HCL 1,500 MG in NS 250 ML IV ONE (17:55)
[2024-11-13] MEDS ORDERED: CefTRIAXone Sodium 2,000 MG in NS 100 ML IV ONE (19:05)
[2024-11-13] MEDS ORDERED: Ondansetron HCl 2 MG / ML 2ML Vial IV PRN (20:10)
[2024-11-13] MEDS ORDERED: Lactated Ringer's 1,000 ML IV SCH (20:10)
[2024-11-13] MEDS ORDERED: Metoclopramide HCl 5MG / ML 2ML Vial IV PRN (20:10)
[2024-11-13] MEDS ORDERED: Acetaminophen 500 MG Tab PO PRN (20:10)
[2024-11-13] MEDS ORDERED: FLU VACC TS2024-25(6MOS UP)/PF 45 MCG/0.5 ML SYRINGE IM ONE (20:10)
[2024-11-13] MEDS ORDERED: FentaNYL Citrate 50 MCG/ML 2 ML Injection IV PRN (20:10)
[2024-11-13] MEDS ORDERED: Albuterol 2.5 MG/3 ML VIAL INH PRN (20:15)
[2024-11-13] MEDS ORDERED: OxyCODONE 5 mg/Acetamin 325 mg TABLET PO PRN (20:15)
[2024-11-13] MEDS ORDERED: Docusate Sodium/Senna 1 Tab PO SCH (21:00)
[2024-11-13] MEDS ORDERED: Lactobacil 2-S.Thermo-Bifido 1 1 Cap PO SCH (21:00)
[2024-11-13 21:26] LABS: Magnesium, Blood 1.8 mg/dL (1.6-2.4)
[2024-11-13] MEDS ORDERED: Cefepime HCl 2,000 MG in NS 100 ML IV SCH (21:46)
[2024-11-13 21:48] LABS: U Amphetamine Screen DETECTED; U Barbituate Screen Not Detected; U Benzodiazapine Screen Not Detected; U Buprenorphine Screen Not Detected; U Cannabinoids Screen DETECTED; U Cocaine Screen Not Detected; U Methadone Screen Not Detected; U Methamphetamine Screen DETECTED; U Opiates Screen Not Detected; U Oxycodone Screen Not Detected; U Phencyclidine Screen Not Detected
[2024-11-13] MEDS ORDERED: NS 250 ML IV PRN (23:35)
[2024-11-14] VITALS (11 sets, daily range): BP systolic 108–132; BP diastolic 68–82
[2024-11-14] MEDS ORDERED: Vancomycin HCL 1,000 MG in NS 250 ML IV SCH (03:00)
--- NOTE | 2024-11-14 05:47 | NUR ---
SHIFT SUMMARY PT ARRIVED FROM ER AROUND 2345. ORIENTED TO ROOM. PT A&Ox4. VERY PAINFUL WITH EVEN SLIGHT MOVEMENT. PT RESISTS ANY MOVEMENT AND INSISTS ON LAYING ON LEFT SIDE. PAIN MEDS GIVEN PER EMAR. PICTURES IN CHART OF LEFT ELBOW CELLULITS. PT ALSO VERBALIZED EXTREME THIRST, STATING THAT HE HADN'T HAD WATER IN DAYS. GIVEN A GLASS OF WATER TO DRINK BEFORE BECOMING NPO AT MIDNIGHT. PT PLACED ON 2L OF OXYGEN D/T LOW O2 SATS. ABX GIVEN PER EMAR. LR INFUSING AT 125ml/hr. BED IN LOWEST POSITION AND CALL LIGHT IN REACH.
[2024-11-14 05:56] LABS: BASOPHILS ABSOLUTE AUTO 0.04 K/mm3 (0.00-0.23); BASOPHILS PERCENT AUTO 0 % (0-2); EOSINOPHILS ABSOLUTE AUTO 0.01 K/mm3 (0.00-0.68); EOSINOPHILS PERCENT AUTO 0 % (0-6); Hematocrit 27.5 % (37.0-53.0); Hemoglobin 10.1 g/dL (13.5-17.5); IMMATURE GRAN ABSOLUTE AUTO 0.17 K/mm3 (0.00-0.10); IMMATURE GRAN PERCENT AUTO 1 % (0-1); LYMPHOCYTES ABSOLUTE AUTO 1.36 K/mm3 (0.84-5.20); LYMPHOCYTES PERCENT AUTO 7 % (21-46); MONOCYTES ABSOLUTE AUTO 0.96 K/mm3 (0.16-1.47); MONOCYTES PERCENT AUTO 5 % (4-13); Mean Corpuscular HGB 31.6 pg (26.0-34.0); Mean Corpuscular HGB Conc 36.7 g/dL (31.5-36.5); Mean Corpuscular Volume 86 fL (80-100); Mean Platelet Volume 11.3 fL (9.1-12.4); NEUTROPHILS ABSOLUTE AUTO 17.47 K/mm3 (1.96-9.15); NEUTROPHILS PERCENT AUTO 87 % (41-73); NRBC ABSOLUTE 0.05 K/mm3 (0.00-0.02); NRBC Auto 0.2 /100 WBC (0.0-0.2); Platelet Count 314 K/mm3 (150-400); RDW Coefficient Variation 14.9 % (11.7-14.2); RDW Standard Deviation 46.5 fL (35.1-46.3); White Blood Cell Count 20.01 K/mm3 (4.00-11.30)
[2024-11-14 06:14] LABS: International Normalized Ratio 1.14; Prothrombin Time Results 12.1 Sec (9.7-11.5)
[2024-11-14 06:22] LABS: Albumin, Blood 1.7 g/dL (3.4-5.0); Albumin/Globulin Ratio 0.4 (0.8-1.8); Bilirubin, Total 0.6 mg/dL (0.1-1.0); Bun/Creatinine Ratio 19.3 (12.0-20.0); Creatinine, Blood 0.47 mg/dL (0.60-1.20); Globulin, Blood 4.4 g/dL (2.2-4.0); Magnesium, Blood 1.6 mg/dL (1.6-2.4); Potassium, Blood 3.5 mmol/L (3.5-5.5); Total Protein, Blood 6.1 g/dL (6.4-8.2)
--- NOTE | 2024-11-14 13:34 | NUR ---
NOTE: NOTIFIED BY [facility] THAT BOTH OF THE PTS BLOOD CULTURES CAME BACK POSITIVE FOR GRAM+ COCCI IN CLUSTERS. DR. CARDENAS NOTIFIED, NO NEW ORDERS AT THIS TIME.
[2024-11-14] MEDS ORDERED: Bupivacaine 0.25% Epi 1:200000 30 ML Vial ONE (15:22)
[2024-11-14] MEDS ORDERED: propofoL 20 ML IV ONE (15:50)
[2024-11-14] MEDS ORDERED: FentaNYL Citrate 50 MCG/ML 2 ML Injection ONE ×2 (15:50→17:21)
[2024-11-14] MEDS ORDERED: SuccINYLCHOLINE Chloride 100 MG/5 ML 5MLSYR ONE (15:51)
[2024-11-14] MEDS ORDERED: Lidocaine HCl 2% 20 ML MDV ONE (15:51)
[2024-11-14] MEDS ORDERED: Esmolol HCL 10 MG/ML 10ML VIAL ONE (15:56)
[2024-11-14] MEDS ORDERED: Ondansetron HCl 2 MG / ML 2ML Vial ONE (16:08)
[2024-11-14] MEDS ORDERED: Metoclopramide HCl 5MG / ML 2ML Vial ONE (16:08)
[2024-11-14] MEDS ORDERED: Ketamine HCl 100 MG / ML 5ML Vial ONE (16:15)
[2024-11-14] MEDS ORDERED: Dexmedetomidine HCL 200 MCG / 2 ML ONE (16:37)
[2024-11-14] MEDS ORDERED: HYDROmorphone HCl/Pf 1MG SYR IV PRN ×2 (17:10)
[2024-11-14] MEDS ORDERED: Ondansetron HCl 2 MG / ML 2ML Vial IV PRN (17:10)
[2024-11-14] MEDS ORDERED: FentaNYL Citrate 50 MCG/ML 2 ML Injection IV PRN (17:15)
--- NOTE | 2024-11-14 18:02 | NUR ---
SHIFT SUMMARY PT AOX4, BR. MEDICATED PER THE EMAR FOR PAIN. L SHOULDER I AND D DONE THIS SHIFT. PT TOLERATED IT WELL. USES THE URINAL INDEPENDENTLY. NPO UNTIL 1800, POST PROCEDURE THIS SHIFT. CALLS. SOFT SPOKEN. REPOSITIONED ALLOWED THROUGHOUT THE SHIFT. WILL REPORT TO ONCOMING NURSE.
[2024-11-14] MEDS ORDERED: FentaNYL Citrate 50 MCG/ML 2 ML Injection IV ONE (18:30)
--- NOTE | 2024-11-14 18:47 | NUR ---
NOTE: PT COULD NOT TOLERATE MRI, HE COULD NOT TOLERATE LAYING FLAT ON HIS BACK PER THE MRI STAFF. PT WAS MEDICATED PRIOR TO THE MRI BUT HE COULD STILL NOT TOLERATE IT. DR. CARDENAS NOTIFIED AND STATED SHE WOULD ATTEMPT THE MRI TOMORROW IF POSSIBLE.
[2024-11-14 18:50] LABS: Vancomycin, Trough 15.2 ug/mL (5.0-10.0)
--- NOTE | 2024-11-15 05:02 | NUR ---
SHIFT SUMMARY PT A&Ox4. PT HAD I&D ON 11/14 OF LEFT ELBOW. DRESSING IN PLACE AND C/D/I. PT STILL VERY PAINFUL AND RESISTS TOO MUCH MOVEMENT. MEDICATED PER EMAR. IV ABX GIVEN PER EMAR AND LR INFUSING @ 125ml/hr. PT SLEPT VERY LITTLE DURING THE NIGHT. SNACKS AND DRINKS PROVIDED. VSS. BED ALARM ON. BED IN LOWEST POSITION AND CALL LIGHT IN REACH.
[2024-11-15 05:16] VITALS: BP 123/62
[2024-11-15 06:00] LABS: BASOPHILS ABSOLUTE AUTO 0.05 K/mm3 (0.00-0.23); BASOPHILS PERCENT AUTO 0 % (0-2); EOSINOPHILS ABSOLUTE AUTO 0.08 K/mm3 (0.00-0.68); EOSINOPHILS PERCENT AUTO 0 % (0-6); Hematocrit 26.6 % (37.0-53.0); Hemoglobin 9.7 g/dL (13.5-17.5); IMMATURE GRAN ABSOLUTE AUTO 0.24 K/mm3 (0.00-0.10); IMMATURE GRAN PERCENT AUTO 1 % (0-1); LYMPHOCYTES ABSOLUTE AUTO 1.72 K/mm3 (0.84-5.20); LYMPHOCYTES PERCENT AUTO 7 % (21-46); MONOCYTES ABSOLUTE AUTO 1.21 K/mm3 (0.16-1.47); MONOCYTES PERCENT AUTO 5 % (4-13); Mean Corpuscular HGB 31.9 pg (26.0-34.0); Mean Corpuscular HGB Conc 36.5 g/dL (31.5-36.5); Mean Corpuscular Volume 88 fL (80-100); Mean Platelet Volume 11.5 fL (9.1-12.4); NEUTROPHILS ABSOLUTE AUTO 19.81 K/mm3 (1.96-9.15); NEUTROPHILS PERCENT AUTO 86 % (41-73); NRBC ABSOLUTE 0.05 K/mm3 (0.00-0.02); NRBC Auto 0.2 /100 WBC (0.0-0.2); Platelet Count 284 K/mm3 (150-400); RDW Coefficient Variation 15.5 % (11.7-14.2); RDW Standard Deviation 49.4 fL (35.1-46.3); Red Blood Cell Count 3.04 M/mm3 (4.30-5.90); White Blood Cell Count 23.11 K/mm3 (4.00-11.30)
[2024-11-15 06:17] LABS: Bun/Creatinine Ratio 13.9 (12.0-20.0); Calcium, Blood 7.3 mg/dL (8.5-10.1); Creatinine, Blood 0.5 mg/dL (0.60-1.20); Potassium, Blood 3.4 mmol/L (3.5-5.5)
[2024-11-15 07:09] VITALS: BP 116/56
[2024-11-15] MEDS ORDERED: Potassium Chloride 20 MEQ TabCR PO ONE (08:05)
[2024-11-15 10:24] VITALS: BP 119/72
[2024-11-15] MEDS ORDERED: HYDROmorphone HCl/Pf 1MG SYR IV ONE (10:30)
[2024-11-15 14:14] LABS: Adenovirus F 40/41 Not Detected (NOT DETECT); Astrovirus Not Detected (NOT DETECT); Campylobacter Sp Not Detected (NOT DETECT); Cryptosporidium Not Detected (NOT DETECT); Cyclospora Cayetanensis Not Detected (NOT DETECT); E. Coli O157 Not Detected (NOT DETECT); Entamoeba Histolytica Not Detected (NOT DETECT); Enteroaggregative E. coli-EAEC Not Detected (NOT DETECT); Enteropathogenic E. coli-EPEC Not Detected (NOT DETECT); Enterotoxigenic E. coli-ETEC Not Detected (NOT DETECT); Giardia Lamblia Not Detected (NOT DETECT); Norovirus GI/GII Not Detected (NOT DETECT); Plesiomonas Shigelloides Not Detected (NOT DETECT); Rotavirus A Not Detected (NOT DETECT); Salmonella Sp Detected (NOT DETECT); Sapovirus Not Detected (NOT DETECT); Shiga Toxin-prod E. coli-STEC Not Detected (NOT DETECT); Shigella/Enteroin E. coli-EIEC Not Detected (NOT DETECT); Vibrio Cholerae Not Detected (NOT DETECT); Vibrio Sp Not Detected (NOT DETECT); Yersinia Enterocolitica Not Detected (NOT DETECT)
[2024-11-15 15:28] VITALS: BP 136/63
--- NOTE | 2024-11-15 17:52 | NUR ---
PT REFUSED MRI THIS MORNING, STATED THAT IT WOULD BE TOO PAINFUL TO LAY ON HIS BACK. THIS RN EDUCATED PT ON IMPORTANCE OF MRI AND OFFERED ONE TIME DOSE OF IV DILAUDED BEFORE EXAM, PT REFUSED. DILAUDED NOT GIVEN.
--- NOTE | 2024-11-15 18:39 | NUR ---
PT A&OX4, VSS, RA, C/O PAIN OF 10/10 DESPITE AROUND THE CLOCK PAIN MEDICATION. 2 LOOSE BM TODAY, STOOL SAMPLE SENT TO LAB POSITIVE FOR SALMONELLA. PT INC. OF BOWEL. PT REFUSED MRI DESPITE EDUCATION AND OFFER OF ONE TIME PAIN MEDICATION PRIOR TO PROCEDURE. PT CALLS FREQUENTLY, CALL LIGHT IN REACH. LR INFUSING AT 125ML/HR, IV VANCO CONTINUES. BED IN LOW LOCKED POSITION.
[2024-11-15 19:17] VITALS: BP 141/65
[2024-11-15 20:07] LABS: Vancomycin, Trough 15.7 ug/mL (5.0-10.0)
[2024-11-16 03:12] VITALS: BP 133/77
--- NOTE | 2024-11-16 04:52 | NUR ---
HOSPITALIST CONTACT CRITICAL VALUE OF POSITVE BLOOD CULTURE. DR HARRISON NOTIFIED. NO NEW ORDER AT THIS TIME.
[2024-11-16 06:30] LABS: Hematocrit 26.2 % (37.0-53.0); Hemoglobin 9.4 g/dL (13.5-17.5); Mean Corpuscular HGB Conc 35.9 g/dL (31.5-36.5); Mean Corpuscular Volume 89 fL (80-100); Mean Platelet Volume 11.9 fL (9.1-12.4); Platelet Count 276 K/mm3 (150-400); RDW Coefficient Variation 15.5 % (11.7-14.2); RDW Standard Deviation 50.4 fL (35.1-46.3); Red Blood Cell Count 2.94 M/mm3 (4.30-5.90); White Blood Cell Count 19.52 K/mm3 (4.00-11.30)
--- NOTE | 2024-11-16 06:36 | NUR ---
PR INTERNSHIP SUMMARY PT A/OX4. ABLE TO MAKE NEEDS KNOWN. PT WAKEFUL ALL NIGHT C/O OF SEVERE BACK AND LEFT ELBOW PAIN. PT MED PER NOV. PAIN NEVER LESS THAN 7/10. PT GETTING DAVID ABOX AND FLUIDS T/O THE SHIFT. TOLERATING WELL. PT IS IN ISO/CONTACT FOR POS MRSA WOUND CULTURE AND POSITIVE SAMONELLA IN THE STOOL. PT HAD NO LOOSE STOOLS OVER NIGHT. PT IS HAD I&D ON LEFT ELBOW 11/14. OUTER DRESSING CHANGED IT WAS SATURATED. REPLACCED ABD AND KERLEX THAT WAS PLACED AFTER PROCEDURE. NEED TO OBTAIN ORDERS FOR WOUND CARE--WILL ADVISE DAY SHIFT NURSE. PT HAS BEEN TOO WEAK TO GET OOB. PT IS USING URINAL TO VOID. CALL LIGHT IS ACCESSIBLE. CARE WILL CONTINUE UNTIL REPORT CAN BE GIVEN TO ON COMING NURSE.
[2024-11-16 06:56] LABS: Bun/Creatinine Ratio 13.4 (12.0-20.0); Calcium, Blood 7.6 mg/dL (8.5-10.1); Creatinine, Blood 0.52 mg/dL (0.60-1.20); Potassium, Blood 3.2 mmol/L (3.5-5.5)
[2024-11-16] MEDS ORDERED: Potassium Chloride 20 MEQ TabCR PO ONE (07:55)
[2024-11-16] MEDS ORDERED: OxyCODONE 5 mg/Acetamin 325 mg TABLET PO PRN (07:55)
[2024-11-16 09:08] VITALS: BP 157/80
[2024-11-16] MEDS ORDERED: HYDROmorphone HCl 0.5 MG/0.5 ML SYR IV PRN (10:40)
--- NOTE | 2024-11-16 12:19 | NUR ---
PATIENT AGREED TO MRI TODAY, DILAUDID AVAILABLE TO PREMEDICATE, CHECK LIST DONE AND FAXED TO MRI, MRI POSSIBLY TODAY OR TOMORROW, MAKES NEEDS KNOWN, CALL LIGHT WITH IN REACH
[2024-11-16] MEDS ORDERED: HYDROmorphone HCl/Pf 1MG SYR IV STA (15:31)
[2024-11-16] MEDS ORDERED: DiphenhydrAMINE HCl 50 MG/ML 1ML Vial IV STA (15:32)
[2024-11-16 16:22] VITALS: BP 152/75
--- NOTE | 2024-11-16 18:36 | NUR ---
MULTIPLE TRIES TO GET MRI DONE, TOTAL OF 3 MG DILAUDID AND BENADRYL GIVEN, PATIENT STILL WAS UNABLE TO TOLERATE LYING FLAT, DR SNYDER AWARE. MEDICATED THROUGH OUT THE DAY WITH FENTANYL AND PERCOCET, PATIENT REPORTS 10/10 PAIN IN THE LEFT ELBOW AND BACK, CALL LIGHT WITH IN REACH, WILL RELAY TO PM RN
[2024-11-16 19:48] VITALS: BP 147/75
[2024-11-17 04:16] VITALS: BP 135/83
[2024-11-17 05:46] LABS: Hematocrit 26.5 % (37.0-53.0); Hemoglobin 9.5 g/dL (13.5-17.5); Mean Corpuscular HGB 31.8 pg (26.0-34.0); Mean Corpuscular HGB Conc 35.8 g/dL (31.5-36.5); Mean Corpuscular Volume 89 fL (80-100); Mean Platelet Volume 11.6 fL (9.1-12.4); Platelet Count 272 K/mm3 (150-400); RDW Coefficient Variation 15.7 % (11.7-14.2); RDW Standard Deviation 50.1 fL (35.1-46.3); Red Blood Cell Count 2.99 M/mm3 (4.30-5.90); White Blood Cell Count 17.73 K/mm3 (4.00-11.30)
[2024-11-17 06:02] LABS: Bun/Creatinine Ratio 11.8 (12.0-20.0); Calcium, Blood 7.7 mg/dL (8.5-10.1); Creatinine, Blood 0.51 mg/dL (0.60-1.20); Potassium, Blood 3.6 mmol/L (3.5-5.5)
--- NOTE | 2024-11-17 06:15 | NUR ---
SHIFT SUMMARY PT EXPERIENCING 9/10 PAIN THROUGH MOST OF NIGHT. AFTER EACH MEDICATION ADMINISTRATION, PT SLEPT. APPROX 0500, PT REQUESTED SOMETHING TO EAT. THIS RN BROUGHT HIM AN ICED PEPSI AND PEANUT BUTTER AND JELLY SANDWICH. PT EXPRESSED HIS GRATITUDE, ATE HIS SANDWICH, THEN WENT BACK TO SLEEP. HE HAS BEEN PLEASANT AND COOPERATIVE WITH HIS CARE.
[2024-11-17 07:26] VITALS: BP 160/85
[2024-11-17] MEDS ORDERED: OxyCODONE HCL 10 MG TABCR PO SCH (10:55)
[2024-11-17] MEDS ORDERED: FentaNYL Citrate 50 MCG/ML 2 ML Injection IV PRN (11:00)
[2024-11-17 15:45] VITALS: BP 158/91
--- NOTE | 2024-11-17 18:19 | NUR ---
ALERT AND ORIENTED X4, PAIN MEDICATIONS INCREASED, PATIENT CONTINUES TO REPORT NO RELIEF FROM BACK PAON. DR GONZALEZ ROUNDED REMOVED LEFT ELBOW DRESSIN, SUTRE CDI, NEW DRESSING APPLIED TO LEFT ELBOW, PATIENT TOLERATED WITH EASE.PALLIATIVE CARE ORDER ENTEREND, POSSIBLE TRY FOR ANOTHER MRI TOMORROW, WBC DECREASED TO 17.73, CLEARLY MAKES NEEDS KNOWN, BED BATH TODAY, CALL LIGHT WITH IN REACH, WILL RELAY TO PM SENA
[2024-11-17 18:50] LABS: Vancomycin, Trough 23.9 ug/mL (5.0-10.0)
[2024-11-17 19:34] VITALS: BP 155/89
[2024-11-18] MEDS ORDERED: Vancomycin HCL 1,000 MG in NS 250 ML IV SCH
[2024-11-18 02:55] VITALS: BP 108/93
[2024-11-18 05:41] LABS: Hematocrit 26.5 % (37.0-53.0); Hemoglobin 9.6 g/dL (13.5-17.5); Mean Corpuscular HGB 32.2 pg (26.0-34.0); Mean Corpuscular HGB Conc 36.2 g/dL (31.5-36.5); Mean Corpuscular Volume 89 fL (80-100); Mean Platelet Volume 11.2 fL (9.1-12.4); Platelet Count 359 K/mm3 (150-400); RDW Coefficient Variation 15.6 % (11.7-14.2); RDW Standard Deviation 50.4 fL (35.1-46.3); Red Blood Cell Count 2.98 M/mm3 (4.30-5.90); White Blood Cell Count 19.47 K/mm3 (4.00-11.30)
--- NOTE | 2024-11-18 05:48 | NUR ---
SHIFT SUMMARY PT SEEMS IN BETTER SPIRITS TONIGHT THAN LAST NIGHT. HE HAS STILL BEEN IN IMMENSE PAIN, BUT IS APPRECIATIVE OF THE INCREASED DOSE AND FREQUENCY OF HIS PAIN MEDICATION. PT MEDICATED PER EMAR AND GIVEN ICE CHIPS, PER HIS REQUEST. PT NOW SLEEPING SOUNDLY. CALL LIGHT IN REACH. PT WOKE UP IN A LOT OF PAIN AGAIN. MEDICATED PER EMAR.
[2024-11-18 06:07] LABS: Bun/Creatinine Ratio 12.4 (12.0-20.0); Calcium, Blood 7.8 mg/dL (8.5-10.1); Creatinine, Blood 0.49 mg/dL (0.60-1.20); Potassium, Blood 3.6 mmol/L (3.5-5.5)
[2024-11-18] MEDS ORDERED: FentaNYL 25 MCG Patch TOP SCH (12:00)
--- NOTE | 2024-11-18 16:48 | NUR ---
PALLIATIVE CARE NOTE: MET WITH PT IN HIS ROOM. PT IS ABLE TO DISCUSS HIS ILLNESS. PT IS AWARE HE HAS INFECTION IN HIS SPINE AND LEFT ELBOW "THAT MIGHT KILL ME". WE DISCUSS GOALS OF CARE. PT STATES HE NEEDS AN MRI BUT CAN'T LAY FLAT BECAUSE HE IS IN TOO MUCH PAIN. DISCUSSED WITH HIM GOALS OF CARE. PT IS AGREEABLE TO HOSPICE CARE. HE IS AWARE WHAT HOSPICE IS BECAUSE HIS MOM WAS ON HOSPICE. PT STATES HE IS HOMELESS AND THERE IS NO ONE WHO CAN TAKE CARE OF HIM. PT IS AGREEABLE TO LTC FACILITY ON HOSPICE IF THAT IS AVAILABLE TO HIM. THIS RN UNABLE TO FINISH CONVERSATION BUYER HERE TO DO ECHOCARDIOGRAM. PT DOES REQUEST I CALL HIS DAD AND UPDATE HIM ON HIS CONDITION. PT GIVES CONTACT INFO: PT DAD IS DONAVON. HIS # IS [phone]. CALL PLACED REQUESTED AND INFORMED HIS DAD OF HIS CURRENT CONDITION. DONAVON WAS THANKFUL. GAVE DONAVON HOSPITAL NUMBER AND PT ROOM TO CALL HIM.
--- NOTE | 2024-11-18 18:50 | NUR ---
PT A&OX4, VSS, RA, BEDREST, NON-TELE. PT PAIN BETTER CONTROLLED TODAY WITH THE ADDITION OF OXYCONTIN AND FENTANYL PATCH, BUT PT STILL UNABLE TO LIE FLAT FOR MRI, WILL RETRY TOMORROW. DRESSING ON ELBOW CHANGED PER ORDER, PT TOLERATED WELL. NO ACUTE CHANGES THIS SHIFT. CALL LIGHT IN REACH, BED IN LOW LOCKED POSITION.
[2024-11-18 20:52] VITALS: BP 126/96
[2024-11-18] MEDS ORDERED: LORazepam 1 MG Tab PO ONE (23:00)
[2024-11-19 03:43] VITALS: BP 151/89
--- NOTE | 2024-11-19 06:02 | NUR ---
SHIFT SUMMARY PT HAS BEEN RESTING IN BED OVERNIGHT. HE HAS BEEN AOX4, CALM AND COOPERATIVE. PT HAS BEEN ON BEDREST ON ACCOUNT OF HIS BACK PAIN. PT WAS AGITATED AND RESTLESS DUE TO LOSS OF IV ACCESS, BUT HE WAS GIVEN ATIVAN AND IV ACCESS WAS RE-ESTABLISHED. SINCE THEN, PT HAS BEEN RESTING COMFORTABLY IN BED. NO COMPLAINTS OTHER THAN HIS [id number] BACK PAIN. NO ACUTE EVENTS OVERNIGHT.
[2024-11-19 07:36] VITALS: BP 148/90
[2024-11-19] MEDS ORDERED: Diazepam 5 MG / ML 2ML SYR IV PRN (10:20)
[2024-11-19] MEDS ORDERED: FentaNYL Citrate 50 MCG/ML 2 ML Injection IV PRN (10:20)
[2024-11-19 11:47] VITALS: BP 100/74
[2024-11-19] MEDS ORDERED: CeFAZolin Sodium 2,000 MG in NS 100 ML IV SCH (15:00)
[2024-11-19 15:41] VITALS: BP 135/73
--- NOTE | 2024-11-19 16:36 | NUR ---
WOUND CARE COMPLETED TO LEFT ELBOW. CLEANSED ADN APPLIED ABSORBANT DRESSING AND WRAPPED IN KERLIX. INFLAMMATION AND MODERATE AMOUNT OF DRAINAGE PRESENT. NOT MALODOROUS.
--- NOTE | 2024-11-19 18:48 | NUR ---
SUMMARY ATTEMPTED PREMEDICATING WITH 100 FENT AND [address] CARRASCO ORDERS. PATIENT WAS ABLE TO LAY ON BACK FOR ABOUT 15 MINUTES BEFORE HE COULD NO LONGER TOLERATE, DR. SNYDER WAS UPDATED THAT MRI TECHS SAID THE IMAGING WOULD BE 1.5 HOURS AND MYSLEF AND PATIENT STATED HE WOULD NOT BE ALBE TO TOLERATE. DR. SNYDER WANTED TO ATTEMPT TO TO GIVE VERSED BUT UPDATED HIM THAT WE DO NOT GIVE VERSED ON MEDICAL UNITS. CALLED HOUSE SUPERVISER TO SEE IF HE COULD BE TRANSFERRED TO ICU FOR A TIME TO BE ON A DRIP IN ORDER TO COMPLETE MRI BUT OUR MRI MACHINES ARE NOT COMPATIBLE WITH IV PUMPS IN ORDER TO COMPLETE. MRI CANCELLED. ANTIBIOTIC REGIMEN CHANGED PER PROVIDER ORDERS.
[2024-11-19 19:31] VITALS: BP 140/93
[2024-11-20 02:23] VITALS: BP 163/88
--- NOTE | 2024-11-20 05:57 | NUR ---
SHIFT SUMMARY PT HAS BEEN RESTING IN BED OVERNIGHT. PT HAS NOT GOTTEN MUCH REST, DUE TO PAIN IN BACK AND L ELBOW. PT HAS BEEN AOX4, CALM AND COOPERATIVE. HE HAS HAD EPISODES OF RESTLESSNESS AND FRUSTRATION DUE TO HIS PAIN. HE ALSO EXPRESSED FRUSTRATION WITH HIS IV'S THEY CONTINUE TO FAIL. NEW IV WAS PLACED, BUT HE HAS BEEN FEARFUL THAT IT WILL NOT LAST. OTHERWISE, PT HAS HAD NO COMPLAINTS. NO ACUTE EVENTS OVERNIGHT.
[2024-11-20 07:28] VITALS: BP 173/85
--- NOTE | 2024-11-20 13:37 | NUR ---
DRESSING CHANGED TO LEFT FOREARM. CLEANSED WITH WOUND CLEANSER, APPLIED ABSORPANT DRESSING AND WRAPPED IN KERLIX/JOE WRAP. MENTIONED TO DR. SNYDER THERE ARE NO WOUND CARE ORDERS, HE STATED HE WOULD SPEAK TO SURGEON ELECTRICIAN SHOP AND PLACE ORDERS LATER.
[2024-11-20] MEDS ORDERED: FentaNYL 50 MCG Patch TOP SCH (15:40)
[2024-11-20 16:01] VITALS: BP 162/91
[2024-11-20 20:23] VITALS: BP 149/87
[2024-11-21] VITALS (11 sets, daily range): BP systolic 82–165; BP diastolic 49–89
--- NOTE | 2024-11-21 05:48 | NUR ---
SHIFT SUMMARY PT ALERT AND ORIENTED TIMES 3-4. PT ADMITTED FOR OSTEOMYLITIS. RIGHT GREAT TOE AMPUTATED. PT IS CONTACT PRECAUTIONS FOR SALMANELLA. PT HAS HX OF METH, ALCOHOL USE. PT ON ROOM AIR. PT NPO FOR S/P I & D. PT ABLE TO MAKE NEEDS KNOWN TO STAFF. PT RECEPTIVE TO CARE. CALL LIGHT WITHIN REACH, RAILS TIMES 2, BED IN LOW POSITION.
--- NOTE | 2024-11-21 09:42 | NUR ---
CALLED DAY SURGERY AND SPOKE WITH ELLIS SHETTY IN THE OR ABOUT PATIENT'S POSSIBLE I&D AND THAT THE PATIENT HAS BEEN NPO SINCE 0000. SHE STATES THAT THE PATIENT IS NOT ON THE ADD ON LIST AND THAT SHE WILL NEED TO FOLLOW UP WITH DR. BALDWIN AND WILL FOLLOW UP.
[2024-11-21] MEDS ORDERED: Lactated Ringer's 1,000 ML IV SCH (13:45)
[2024-11-21] MEDS ORDERED: propofoL 20 ML IV ONE (14:41)
[2024-11-21] MEDS ORDERED: FentaNYL Citrate 50 MCG/ML 2 ML Injection ONE (14:41)
[2024-11-21] MEDS ORDERED: Phenylephrine HCl 100 MCG/ML-NS 10MLSYR (1MG/10ML) ONE ×2 (14:50→15:12)
[2024-11-21] MEDS ORDERED: Ondansetron HCl 2 MG / ML 2ML Vial ONE (14:50)
[2024-11-21] MEDS ORDERED: Ketorolac Tromethamine 30mg Vial ONE (14:50)
[2024-11-21] MEDS ORDERED: Lidocaine HCl 1% 30 ML SDV ONE (14:50)
[2024-11-21] MEDS ORDERED: Dexamethasone Sod Phos 10 MG/ML 1ML VIAL ONE (14:50)
[2024-11-21] MEDS ORDERED: CeFAZolin Sodium 1000 mg Vial ONE ×2 (14:55→15:01)
--- NOTE | 2024-11-21 18:35 | NUR ---
SHIFT SUMMARY: PATIENT IS ALERT AND ORIENTEDX4, BED REST, CONTINENT, CALLS APPROPRIATELY. HE UNDERWENT AN I&D ON HIS L ELBOW TODAY; TOLERATED WELL AND IS DOING WELL POST PROCEDURE. DRESSING ON L ELBOW IS C/D/I, PATIENT REPORTS PAIN /10 PATIENT WILL STATES HEAVY OR LIGHT 8; EACH TIME PAIN IS ASSESSED. CURRENTLY AT A LIGHT 8. HE IS IN BED, CALL LIGHT WITHIN REACH, NO SIGNS OR SYMPTOMS OF DISTRESS, PLAN OF CARE ONGOING.
[2024-11-22 02:21] VITALS: BP 158/72
--- NOTE | 2024-11-22 06:14 | NUR ---
SHIFT SUMMARY PT ALERT AND ORIENTED TIMES 3-4. PT ADMITTED FOR OSTEOMYLITIS. RIGHT GREAT TOE AMPUTATED. PT IS CONTACT PRECAUTIONS FOR SALMANELLA. PT HAS HX OF METH, ALCOHOL USE. PT ON ROOM AIR. PT APPEARED NOT TO SLEEP MOST OF THE NIGHT. PT ABLE TO MAKE NEEDS KNOWN TO STAFF. PT RECEPTIVE TO CARE. CALL LIGHT WITHIN REACH, RAILS TIMES 2, BED IN LOW POSITION.
--- NOTE | 2024-11-22 06:51 | NUR ---
PT TOOK DRESSING OFF SOMETIME DURING THE BRAKER PASSENGER TRAIN. SURGICAL WOUND WAS WEAPING SLIGHTLY BUT ALL STITCHES WERE INTACT. NO SIGN OF ANY PULLED OUT OR INCISION PULLED APART.SKIN WAS PINK AROUND INCISION AREA. WOUND WAS RE-DRESSED, PT TOLERATED WELL.
[2024-11-22 07:38] VITALS: BP 134/114
[2024-11-22 07:51] LABS: BASOPHILS ABSOLUTE AUTO 0.01 K/mm3 (0.00-0.23); BASOPHILS PERCENT AUTO 0 % (0-2); EOSINOPHILS PERCENT AUTO 0 % (0-6); Hematocrit 22.4 % (37.0-53.0); Hemoglobin 7.8 g/dL (13.5-17.5); IMMATURE GRAN ABSOLUTE AUTO 0.05 K/mm3 (0.00-0.10); IMMATURE GRAN PERCENT AUTO 1 % (0-1); LYMPHOCYTES ABSOLUTE AUTO 1.45 K/mm3 (0.84-5.20); LYMPHOCYTES PERCENT AUTO 16 % (21-46); MONOCYTES ABSOLUTE AUTO 0.65 K/mm3 (0.16-1.47); MONOCYTES PERCENT AUTO 7 % (4-13); Mean Corpuscular HGB Conc 34.8 g/dL (31.5-36.5); Mean Corpuscular Volume 92 fL (80-100); Mean Platelet Volume 10.5 fL (9.1-12.4); NEUTROPHILS ABSOLUTE AUTO 7.03 K/mm3 (1.96-9.15); NEUTROPHILS PERCENT AUTO 77 % (41-73); Platelet Count 515 K/mm3 (150-400); RDW Coefficient Variation 15.8 % (11.7-14.2); RDW Standard Deviation 52.1 fL (35.1-46.3); Red Blood Cell Count 2.44 M/mm3 (4.30-5.90); White Blood Cell Count 9.19 K/mm3 (4.00-11.30)
[2024-11-22 08:32] LABS: Albumin, Blood 1.7 g/dL (3.4-5.0); Albumin/Globulin Ratio 0.4 (0.8-1.8); Bilirubin, Total 0.2 mg/dL (0.1-1.0); Bun/Creatinine Ratio 21.9 (12.0-20.0); Calcium, Blood 7.9 mg/dL (8.5-10.1); Creatinine, Blood 0.55 mg/dL (0.60-1.20); Globulin, Blood 4.6 g/dL (2.2-4.0); Potassium, Blood 4.4 mmol/L (3.5-5.5); Total Protein, Blood 6.3 g/dL (6.4-8.2)
[2024-11-22] MEDS ORDERED: Nicotine 21 MG PATCH TOP SCH (09:00)
[2024-11-22 09:18] VITALS: BP 167/80
--- NOTE | 2024-11-22 17:10 | NUR ---
SHIFT SUMMARY: NO EVENTS OR CHANGES WITH THE PATIENT THROUGHOUT THE SHIFT. ORTHO CAME BY TODAY AND CLEARED HIM FROM THEIR STANDPOINT. PATIENT CONTINUING TO GET IV ANTIBIOTICS AND PAIN MANAGEMENT. IN BED, ALERT, CALL LIGHT WITHIN REACH, NO SIGNS OR SYMPTOMS OF DISTRESS, PLAN OF CARE ONGOING.
[2024-11-22 17:13] VITALS: BP 156/90
[2024-11-22 21:07] VITALS: BP 178/102
--- NOTE | 2024-11-23 06:04 | NUR ---
SHIFT SUMMARY PT ALERT AND ORIENTED TIMES 3-4. PT ADMITTED FOR OSTEOMYLITIS. RIGHT GREAT TOE AMPUTATED. PT IS CONTACT PRECAUTIONS FOR SALMANELLA. PT HAS HX OF METH, ALCOHOL USE. PT ON ROOM AIR. PT APPEARED NOT TO SLEEP MOST OF THE NIGHT. PT ABLE TO MAKE NEEDS KNOWN TO STAFF. PT WANTED DOOR CLOSED NEIGHBOR PT WAS YELLING AND SCREAMING MOST OF THE NIGHT.. PT RECEPTIVE TO CARE. CALL LIGHT WITHIN REACH, RAILS TIMES 2, BED IN LOW POSITION.
[2024-11-23 06:39] VITALS: BP 125/83
[2024-11-23 07:36] VITALS: BP 126/85
[2024-11-23 07:42] LABS: Hematocrit 25.3 % (37.0-53.0); Hemoglobin 8.6 g/dL (13.5-17.5); Mean Corpuscular HGB 31.3 pg (26.0-34.0); Mean Corpuscular Volume 92 fL (80-100); Mean Platelet Volume 10.2 fL (9.1-12.4); Platelet Count 576 K/mm3 (150-400); RDW Standard Deviation 53.5 fL (35.1-46.3); Red Blood Cell Count 2.75 M/mm3 (4.30-5.90)
[2024-11-23 07:48] LABS: White Blood Cell Count 14.83 K/mm3 (4.00-11.30)
[2024-11-23 08:03] LABS: Albumin, Blood 1.9 g/dL (3.4-5.0); Albumin/Globulin Ratio 0.4 (0.8-1.8); Bilirubin, Total 0.2 mg/dL (0.1-1.0); Bun/Creatinine Ratio 21.6 (12.0-20.0); Calcium, Blood 8.1 mg/dL (8.5-10.1); Creatinine, Blood 0.56 mg/dL (0.60-1.20); Globulin, Blood 4.9 g/dL (2.2-4.0); Total Protein, Blood 6.8 g/dL (6.4-8.2)
[2024-11-23 08:32] LABS: BASOPHILS ABSOLUTE MAN 0.29 K/mm3 (0.00-0.23); BASOPHILS PERCENT MAN 2 % (0-2); EOSINOPHILS ABSOLUTE MAN 0.44 K/mm3 (0.00-0.68); EOSINOPHILS PERCENT MAN 3 % (0-6); LYMPHOCYTES ABSOLUTE MAN 2.96 K/mm3 (0.84-5.20); LYMPHOCYTES PERCENT MAN 20 % (21-46); MONOCYTES ABSOLUTE MAN 0.74 K/mm3 (0.16-1.47); MONOCYTES PERCENT MAN 5 % (4-13); NEUTROPHILS ABSOLUTE MAN 10.38 K/mm3 (1.96-9.15); SEG NEUTROPHILS PERCENT MAN 70 % (41-73); TOTAL CELLS COUNTED 100
--- NOTE | 2024-11-23 17:25 | NUR ---
SHIFT SUMMARY: NO EVENTS OR CHANGES WITH THE PATIENT THROUGHOUT THE SHIFT. HE IS IN BED, CALL LIGHT WITHIN REACH, NO SIGNS OR SYMPTOMS OF DISTRESS, PLAN OF CARE ONGOING.
[2024-11-23 20:25] VITALS: BP 135/77
[2024-11-24 05:43] VITALS: BP 121/69
--- NOTE | 2024-11-24 06:04 | NUR ---
SHIFT SUMMARY PT ALERT AND ORIENTED TIMES 3-4. PT ADMITTED FOR OSTEOMYLITIS. RIGHT GREAT TOE AMPUTATED. PT IS CONTACT PRECAUTIONS FOR SALMANELLA. PT HAS HX OF METH, ALCOHOL USE. PT ON ROOM AIR. PT APPEARED TO SLEEP ON AND OFF MOST OF THE NIGHT. WOUND CARE DONE ON PT S LEFT ELBOW. DRESSING CHANGED AND WOUND CLEANED PER MAR ORDER. PT TOLERATED WELL. WOUND LOOKED CLEAN, MINIMAL DRAINAGE, SUTURES ALL INTACT. PT ABLE TO MAKE NEEDS KNOWN TO STAFF. PT WANTED DOOR CLOSED NEIGHBOR PT WAS YELLING AND SCREAMING MOST OF THE NIGHT.. PT RECEPTIVE TO CARE. CALL LIGHT WITHIN REACH, RAILS TIMES 2, BED IN LOW POSITION.
[2024-11-24 07:42] LABS: BASOPHILS ABSOLUTE AUTO 0.09 K/mm3 (0.00-0.23); BASOPHILS PERCENT AUTO 1 % (0-2); EOSINOPHILS PERCENT AUTO 2 % (0-6); Hematocrit 25.4 % (37.0-53.0); Hemoglobin 8.7 g/dL (13.5-17.5); IMMATURE GRAN ABSOLUTE AUTO 0.09 K/mm3 (0.00-0.10); IMMATURE GRAN PERCENT AUTO 1 % (0-1); LYMPHOCYTES ABSOLUTE AUTO 2.72 K/mm3 (0.84-5.20); LYMPHOCYTES PERCENT AUTO 22 % (21-46); MONOCYTES ABSOLUTE AUTO 1.23 K/mm3 (0.16-1.47); MONOCYTES PERCENT AUTO 10 % (4-13); Mean Corpuscular HGB 31.3 pg (26.0-34.0); Mean Corpuscular HGB Conc 34.3 g/dL (31.5-36.5); Mean Corpuscular Volume 91 fL (80-100); Mean Platelet Volume 9.7 fL (9.1-12.4); NEUTROPHILS ABSOLUTE AUTO 7.93 K/mm3 (1.96-9.15); NEUTROPHILS PERCENT AUTO 65 % (41-73); Platelet Count 615 K/mm3 (150-400); RDW Standard Deviation 53.2 fL (35.1-46.3); Red Blood Cell Count 2.78 M/mm3 (4.30-5.90); White Blood Cell Count 12.26 K/mm3 (4.00-11.30)
[2024-11-24 07:51] VITALS: BP 116/71
[2024-11-24 07:56] LABS: Bun/Creatinine Ratio 24.1 (12.0-20.0); Creatinine, Blood 0.46 mg/dL (0.60-1.20); Potassium, Blood 4.1 mmol/L (3.5-5.5)
--- NOTE | 2024-11-24 15:46 | NUR ---
LATE ENTRY FOR 11/23/2024 MET WITH PATIENT. HE WAS REQUESTING PAIN MEDICATION. DISCUSSED WITH BEDSIDE RN AND MEDICATION WAS PROVIDED. PATIENT REPORTS THAT HE IS DOING BETTER TODAY. PROVIDED THERAPUTIC CONVERSATION.
[2024-11-24 16:42] VITALS: BP 152/84
--- NOTE | 2024-11-24 18:17 | NUR ---
PT A&OX4, VSS, RA, NON TELE. PT PAIN MANAGED WITH FENTANYL PATCH, SCHEDULED OXYCONTIN BID, AND PRN PERCOCET AND FENTANYL. PT HAD BM TODAY. COOPERATIVE WITH CARE. CALLS APPROPRIATLY, CALL LIGHT IN REACH, BED IN LOW POSITIONS. EDUCATION PROVIDED ON ALL MEDICATIONS, TREATMENTS AND IMPORTANCE OF POSITION CHANGES TO PROTECT SKIN.
[2024-11-24 20:16] VITALS: BP 141/69
--- NOTE | 2024-11-24 22:09 | NUR ---
PT C/O CHEST PAIN AT 2016. PT HAD ELEVATED PULSE AND RESPIRATIONS, PER DIGITAL MARKETING PROGRAM MANAGER, AND PT HAD REPORTED TO HER CHEST PAIN. THIS RN CAME INTO ROOM AND ASKED CHARACTER, LOCATION, AND SEVERITY OF CHEST PAIN. PT REPORTED SHARP, CONSTANT PAIN IN R SIDE OF CHEST. RN CALLED HOSPITALIST AT 2018, AND RECIEVED ORDERS FOR EKG AND TROPONIN. EKG DONE AND TROPONIN DRAWN, AND PT RECIEVED SCHEDULED PAIN MEDICATION.
[2024-11-25 06:03] VITALS: BP 132/82
[2024-11-25 06:52] LABS: Hematocrit 26.4 % (37.0-53.0); Mean Corpuscular HGB 31.8 pg (26.0-34.0); Mean Corpuscular HGB Conc 34.1 g/dL (31.5-36.5); Mean Corpuscular Volume 93 fL (80-100); Mean Platelet Volume 10.1 fL (9.1-12.4); Platelet Count 649 K/mm3 (150-400); RDW Coefficient Variation 16.3 % (11.7-14.2); RDW Standard Deviation 55.3 fL (35.1-46.3); Red Blood Cell Count 2.83 M/mm3 (4.30-5.90)
[2024-11-25 06:54] LABS: White Blood Cell Count 13.21 K/mm3 (4.00-11.30)
[2024-11-25 07:07] LABS: Bun/Creatinine Ratio 18.7 (12.0-20.0); Calcium, Blood 8.3 mg/dL (8.5-10.1); Creatinine, Blood 0.54 mg/dL (0.60-1.20); Potassium, Blood 5.4 mmol/L (3.5-5.5)
[2024-11-25 07:16] LABS: BASOPHILS ABSOLUTE MAN 0.13 K/mm3 (0.00-0.23); BASOPHILS PERCENT MAN 1 % (0-2); EOSINOPHILS PERCENT MAN 0 % (0-6); LYMPHOCYTES ABSOLUTE MAN 1.84 K/mm3 (0.84-5.20); LYMPHOCYTES PERCENT MAN 14 % (21-46); MONOCYTES ABSOLUTE MAN 0.66 K/mm3 (0.16-1.47); MONOCYTES PERCENT MAN 5 % (4-13); NEUTROPHILS ABSOLUTE MAN 10.56 K/mm3 (1.96-9.15); SEG NEUTROPHILS PERCENT MAN 80 % (41-73); TOTAL CELLS COUNTED 100
[2024-11-25 08:23] VITALS: BP 133/98
[2024-11-25] MEDS ORDERED: Miconazole Nitrate 2% 85 GM PWD TOP SCH (14:00)
[2024-11-25 16:05] VITALS: BP 122/62
--- NOTE | 2024-11-25 18:44 | NUR ---
SHIFT SUMMARY- PT WAS REPOSITIONED TOLLERATED T/O THE SHIFT. HE WAS ABLE TO LAY ON HIS RIGHT SIDE FOR AN HOUR OR SO. PLACED A MEPILEX ON HIS LEFT HIP THAT IS THE SIDE HE FAVORS. HE HAD AN EPISODE OF BOWEL INCONTINENCE TODAY REQUIRING A LINNEN CHANGE. HE WAS PLACED IN ATTENDS AFTER THAT, BUT CURRENTLY IS AGAIN WITHOUT ATTENDS. IT WAS NOTED THAT HE HAD A YEAST RASH ON HIS ABDOMEN WHERE HE LAYS CURLED UP TO THE LEFT. CLEANED AND DRIED AND APPLIED MICONOZOLE POWDER THAT IS NOW ORDERED. PT MEDICATED FREQUENTLY FOR PAIN. HE IS CURRENTLY LAYING IN BED, CALL LIGHT IN REACH NO S&S OF DISTRESS NOTED.
[2024-11-25 21:10] VITALS: BP 142/84
[2024-11-26 03:43] VITALS: BP 139/77
--- NOTE | 2024-11-26 06:29 | NUR ---
SHIFT SUMMARY PT HAS BEEN RESTING IN BED OVERNIGHT. HE HAS BEEN AOX4, CALM AND COOPERATIVE. HE HAS BEEN COMPLAINING OF CONSTANT PAIN PRIMARILY IN BACK. PT HAS BEEN ON BEDREST, DUE TO DEBILITATING BACK PAIN. OTHER THAN PAIN, PT HAS HAD NO COMPLAINTS OVERNIGHT. NO ACUTE EVENTS.
[2024-11-26 06:52] LABS: BASOPHILS ABSOLUTE AUTO 0.11 K/mm3 (0.00-0.23); BASOPHILS PERCENT AUTO 1 % (0-2); EOSINOPHILS ABSOLUTE AUTO 0.19 K/mm3 (0.00-0.68); EOSINOPHILS PERCENT AUTO 1 % (0-6); Hematocrit 25.7 % (37.0-53.0); Hemoglobin 8.7 g/dL (13.5-17.5); IMMATURE GRAN ABSOLUTE AUTO 0.09 K/mm3 (0.00-0.10); IMMATURE GRAN PERCENT AUTO 1 % (0-1); LYMPHOCYTES ABSOLUTE AUTO 2.54 K/mm3 (0.84-5.20); LYMPHOCYTES PERCENT AUTO 19 % (21-46); MONOCYTES PERCENT AUTO 10 % (4-13); Mean Corpuscular HGB 31.6 pg (26.0-34.0); Mean Corpuscular HGB Conc 33.9 g/dL (31.5-36.5); Mean Corpuscular Volume 94 fL (80-100); NEUTROPHILS ABSOLUTE AUTO 9.32 K/mm3 (1.96-9.15); NEUTROPHILS PERCENT AUTO 69 % (41-73); Platelet Count 656 K/mm3 (150-400); RDW Coefficient Variation 16.4 % (11.7-14.2); RDW Standard Deviation 55.8 fL (35.1-46.3); Red Blood Cell Count 2.75 M/mm3 (4.30-5.90); White Blood Cell Count 13.55 K/mm3 (4.00-11.30)
[2024-11-26 07:14] LABS: Albumin/Globulin Ratio 0.4 (0.8-1.8); Bilirubin, Total 0.1 mg/dL (0.1-1.0); Bun/Creatinine Ratio 19.1 (12.0-20.0); Creatinine, Blood 0.52 mg/dL (0.60-1.20); Potassium, Blood 4.2 mmol/L (3.5-5.5)
[2024-11-26 07:48] VITALS: BP 127/73
[2024-11-26] MEDS ORDERED: FentaNYL Citrate 50 MCG/ML 2 ML Injection IV ONE (11:40)
[2024-11-26 14:50] VITALS: BP 124/65
--- NOTE | 2024-11-26 17:48 | NUR ---
NO ACUTE CHANGES THIS SHIFT. PT DRESSING CHANGED ON L ELBOW, RUBIN AREA CLEANSED AND MEDICATED POWDER APPLIED. PAIN TREATED PER EMAR. PT PAIN RANGES FROM 8-9/10. MAY DROP TO 7/10 AFTER MEDICATED. PT IS BEDREST, DECLINED LINEN CHANGE DUE TO PAIN. ALERT AND ORIENTED X4, ABLE TO MAKE NEEDS KNOWN. CALLS APPROPRIATELY. CURRENTLY WAITING ON PLACEMENT.
[2024-11-26 20:58] VITALS: BP 129/75
[2024-11-27 02:05] VITALS: BP 120/75
--- NOTE | 2024-11-27 04:24 | NUR ---
SHIFT SUMMARY ADMITTED FOR OSTEOMYELITIS OF LUMBAR VERTEBRA. FULL CODE. ISOLATION FOR MRSA IN WOUND. LEFT ELBOW ABSCESS, POST I&D & REVISION, WELL. PLAN IS FOR 8 WEEKS ANTIB RX, PAIN MANAGEMENT, AND PLACEMENT. POWERGLIDE IN RUE. ON RA. REGULAR DIET. A&O X4, YELLS OUT AT TIMES. HE IS ON BEDREST. HE IS CONTINENT OF URINE, INCONTINENT OF BM. DRESSING ON ELBOW CHANGED THIS SHIFT. HX OF POLYSUBSTANCE ABUSE, RECURRENT BACTEREMIA.
[2024-11-27 07:35] VITALS: BP 137/79
[2024-11-27 15:24] VITALS: BP 133/84
--- NOTE | 2024-11-27 19:30 | NUR ---
NO ACUTE CHANGES THIS SHIFT. DRESSING CHANGED ORDERED. PT BATHED AND LINEN CHANGED. POWDER APPLIED TO AFFECTED AREAS. TREATED PAIN PER EMAR. PT BEDREST DUE TO PAIN. REPOSITIONED Q2 HOURS USING PILLOWS. PT UNABLE TO TOLORATE FULL TURN TO RIGHT SIDE. IV ANTIBIOTICS CONTINUED.
[2024-11-27 19:35] VITALS: BP 146/83
[2024-11-28 02:28] VITALS: BP 124/76
--- NOTE | 2024-11-28 04:23 | NUR ---
SHIFT SUMMARY ADMITTED FOR OSTEOMYELITIS OF LUMBAR VERTEBRA. FULL CODE. ISOLATION FOR MRSA IN WOUND. ALSO HAD I&D X2 FOR LEFT ELBOW ABSCESS. 8 WEEKS OF ANTIB RX AND PAIN CONTROL ARE THE PLAN. POWERGLIDE IN RUE. ON RA. A&O X4. INCONTINENT OF STOOL. NUMEROUS PAIN RX GIVEN THIS SHIFT, SEE EMAR. HX: POLYSUBSTANCE ABUSE, RECURRENT BACTEREMIA W/HARDWARE REMOVAL, HOMELESSNESS, PANCREATITIS.
[2024-11-28 07:37] VITALS: BP 140/67
--- NOTE | 2024-11-28 15:44 | NUR ---
DISCUSSED PATIENT WITH PROVIDER AND BEDSIDE RN. CURRENT MEDICATIONS ARE POORLY MANAGING PAIN. DISCUSSED OPTIONS FOR ALTERING REGIMINE TO PROVIDE BETTER SYMPTOM MANAGMENT.
--- NOTE | 2024-11-28 19:27 | NUR ---
SHIFT SUMMARY PATIENT A/OX4, ABLE TO MAKE NEEDS KNOWN. PLEASANT AND COOPERATIVE WITH CARE. PATIENT COMPLAINING OF PAIN TO LOWER BACK R/T L1-L2 FRACTURE. PATIENT WITH SCHEDULED OXYCONTIN, PRN FENTANYL AND FENTANYL PATCH TO RIGHT SHOULDER ADMINISTERED PER NOV. PERCOCET ADMINISTER PER NOV THIS AM PRIOR TO DISCONTINUATION. LEFT ELBOW INCISION WITH MODERATE PURULENT DRAINAGE, MD NOTIFIED AND NEW ORDER FOR WOUND CARE PROVIDED PER ORDERS. DRESSINGS CHANGES TO IV AND POWERGLIDE. NO OTHER CONCERNS AT THIS TIME.
[2024-11-28 20:03] VITALS: BP 137/82
[2024-11-28] MEDS ORDERED: Gabapentin 100 MG Cap PO SCH (21:00)
[2024-11-28] MEDS ORDERED: OxyCODONE HCL 5 MG TAB PO PRN (21:00)
[2024-11-29 05:24] VITALS: BP 119/63
[2024-11-29 07:24] VITALS: BP 114/72
--- NOTE | 2024-11-29 07:51 | NUR ---
GEOLOGICAL DRAFTER SUMMARY PT WAS VERY PAINFUL OVERNIGHT. HE DOESNT BELIEVE HIS FENTANYL PATCH IS WORKING AND WAS ENCOURAGED TO SPEAK WITH HIS DOCTOR ABOUT IT TODAY. L ELBOW DRESSING CHANGED.
[2024-11-29] MEDS ORDERED: Gabapentin 300 MG Cap PO SCH (12:00)
[2024-11-29] MEDS ORDERED: OxyCODONE HCL 5 MG TAB PO PRN (14:10)
[2024-11-29 14:25] VITALS: BP 126/67
--- NOTE | 2024-11-29 17:05 | NUR ---
SHIFT SUMMARY: PATIENT A/OX3, PLEASANT AND COOPERATIVE c CARE. PATIENT REPORTS PAIN TO BACK AND L ARM, MEDICATED FOR PAIN PER EMAR c MOD EFFECT. DRESSING CHANGED TO L ELBOW PER ORDER. PATIENT HAS GOOD APPETITE, CONTINENT OF BLADDER, USES URINAL IN BED INDEPENDENTLY T/O SHIFT. PATIENT RECEIVED IV ABX/SCHEDULED MEDS PER EMAR. VITAL SIGNS REVIEWED. CALL LIGHT IN REACH. PATIENT HAS HAD NO COMPLAINTS OR NO NEW CONCERNED THIS SHIFT.
[2024-11-29 19:43] VITALS: BP 100/55
[2024-11-29] MEDS ORDERED: OxyCODONE HCL 15 MG TAB.SR.12H PO SCH (21:00)
[2024-11-30 04:34] VITALS: BP 109/58
[2024-11-30 06:38] LABS: BASOPHILS PERCENT AUTO 1 % (0-2); EOSINOPHILS ABSOLUTE AUTO 0.23 K/mm3 (0.00-0.68); EOSINOPHILS PERCENT AUTO 1 % (0-6); Hematocrit 25.7 % (37.0-53.0); Hemoglobin 8.5 g/dL (13.5-17.5); IMMATURE GRAN PERCENT AUTO 1 % (0-1); LYMPHOCYTES ABSOLUTE AUTO 2.04 K/mm3 (0.84-5.20); LYMPHOCYTES PERCENT AUTO 13 % (21-46); MONOCYTES ABSOLUTE AUTO 1.73 K/mm3 (0.16-1.47); MONOCYTES PERCENT AUTO 11 % (4-13); Mean Corpuscular HGB 30.6 pg (26.0-34.0); Mean Corpuscular HGB Conc 33.1 g/dL (31.5-36.5); Mean Corpuscular Volume 92 fL (80-100); Mean Platelet Volume 9.6 fL (9.1-12.4); NEUTROPHILS ABSOLUTE AUTO 11.78 K/mm3 (1.96-9.15); NEUTROPHILS PERCENT AUTO 74 % (41-73); Platelet Count 708 K/mm3 (150-400); RDW Coefficient Variation 15.9 % (11.7-14.2); RDW Standard Deviation 53.7 fL (35.1-46.3); Red Blood Cell Count 2.78 M/mm3 (4.30-5.90); White Blood Cell Count 15.98 K/mm3 (4.00-11.30)
[2024-11-30 07:07] LABS: Albumin/Globulin Ratio 0.4 (0.8-1.8); Bilirubin, Total 0.3 mg/dL (0.1-1.0); Bun/Creatinine Ratio 25.3 (12.0-20.0); Calcium, Blood 8.4 mg/dL (8.5-10.1); Creatinine, Blood 0.43 mg/dL (0.60-1.20); Globulin, Blood 5.4 g/dL (2.2-4.0); Total Protein, Blood 7.4 g/dL (6.4-8.2)
[2024-11-30 07:20] VITALS: BP 107/67
[2024-11-30 16:26] VITALS: BP 119/65
--- NOTE | 2024-11-30 17:32 | NUR ---
SHIFT SUMMARY: PATIENT HAS HAD NO NEW ACUTE CHANGES THIS SHIFT. PATIENT CONTINUES TO REPORTS PAIN 8-05/14 TO BACK/L ARM, MEDICATED FOR PAIN PER EMAR c MOD EFFECT. DRESSING CHANGED TO L ARM/ELBOW PER ORDER. PATIENT HAS GOOD APPETITE, CONTINENT OF BLADDER, USES URINAL IN BED INDEPENDENTLY. PATIENT RECEIVED IV ABX/SCHEDULED MED PER EMAR. VITAL SIGNS REVIEWED. CALL LIGHT IN REACH.
[2024-11-30 19:16] VITALS: BP 113/81
[2024-12-01 04:49] VITALS: BP 125/80
[2024-12-01 07:49] VITALS: BP 105/58
[2024-12-01 10:16] LABS: BASOPHILS ABSOLUTE AUTO 0.12 K/mm3 (0.00-0.23); BASOPHILS PERCENT AUTO 1 % (0-2); EOSINOPHILS ABSOLUTE AUTO 0.25 K/mm3 (0.00-0.68); EOSINOPHILS PERCENT AUTO 2 % (0-6); Hematocrit 26.1 % (37.0-53.0); Hemoglobin 8.8 g/dL (13.5-17.5); IMMATURE GRAN ABSOLUTE AUTO 0.08 K/mm3 (0.00-0.10); IMMATURE GRAN PERCENT AUTO 1 % (0-1); LYMPHOCYTES ABSOLUTE AUTO 1.72 K/mm3 (0.84-5.20); LYMPHOCYTES PERCENT AUTO 13 % (21-46); MONOCYTES ABSOLUTE AUTO 1.23 K/mm3 (0.16-1.47); MONOCYTES PERCENT AUTO 9 % (4-13); Mean Corpuscular HGB Conc 33.7 g/dL (31.5-36.5); Mean Corpuscular Volume 92 fL (80-100); Mean Platelet Volume 9.3 fL (9.1-12.4); NEUTROPHILS ABSOLUTE AUTO 10.31 K/mm3 (1.96-9.15); NEUTROPHILS PERCENT AUTO 75 % (41-73); Platelet Count 698 K/mm3 (150-400); RDW Coefficient Variation 15.8 % (11.7-14.2); RDW Standard Deviation 53.4 fL (35.1-46.3); Red Blood Cell Count 2.84 M/mm3 (4.30-5.90); White Blood Cell Count 13.71 K/mm3 (4.00-11.30)
[2024-12-01 10:44] LABS: C-REACTIVE PROTEIN, EXT RANGE 12.8 mg/dL (0.000-0.300)
[2024-12-01 10:45] LABS: Albumin/Globulin Ratio 0.4 (0.8-1.8); Bilirubin, Total 0.2 mg/dL (0.1-1.0); Bun/Creatinine Ratio 20.6 (12.0-20.0); Calcium, Blood 8.3 mg/dL (8.5-10.1); Creatinine, Blood 0.49 mg/dL (0.60-1.20); Globulin, Blood 5.5 g/dL (2.2-4.0); Potassium, Blood 4.1 mmol/L (3.5-5.5); Total Protein, Blood 7.5 g/dL (6.4-8.2)
[2024-12-01 15:29] VITALS: BP 114/62
[2024-12-01] MEDS ORDERED: Lidocaine 4% 1 Patch TOP ONE (16:05)
--- NOTE | 2024-12-01 16:42 | NUR ---
SHIFT SUMMARY: PATIENT HAS HAD NO CHANGES THIS SHIFT. PATIENT CONTINUES TO REPORTS PAIN 8-9/10 MAINLY TO BACK AND SOME TO L ELBOW. PATIENT MEDICATED FOR PAIN c SCHEDULED AND PRN PAIN MEDS PER EMAR c MOD EFFECT. DRESSING CHANGED TO L ARM/ELBOW PER ORDER. PATIENT SLEPT ON/OFF T/O THE DAY, FAIR APPETITE, CONTINENT OF BLADDER USES URINAL AND INCONTINENT OF BOWEL, RUBIN CARE AND ATTENDS CHANGED. PATIENT FAVOR TO LAY ON HIS L SIDE, DECLINED REPOSITIONING, BUT AGREED BOTH SIDE AND L ARM FLOATED ON PILLOWS. VITAL SIGNS REVIEWED. CALL LIGHT IN REACH.
[2024-12-01 19:32] VITALS: BP 123/66
[2024-12-02 04:27] VITALS: BP 122/73
[2024-12-02 06:24] LABS: BASOPHILS ABSOLUTE AUTO 0.11 K/mm3 (0.00-0.23); BASOPHILS PERCENT AUTO 1 % (0-2); EOSINOPHILS ABSOLUTE AUTO 0.35 K/mm3 (0.00-0.68); EOSINOPHILS PERCENT AUTO 3 % (0-6); Hematocrit 26.4 % (37.0-53.0); Hemoglobin 8.9 g/dL (13.5-17.5); IMMATURE GRAN PERCENT AUTO 1 % (0-1); LYMPHOCYTES ABSOLUTE AUTO 2.13 K/mm3 (0.84-5.20); LYMPHOCYTES PERCENT AUTO 15 % (21-46); MONOCYTES ABSOLUTE AUTO 1.81 K/mm3 (0.16-1.47); MONOCYTES PERCENT AUTO 13 % (4-13); Mean Corpuscular HGB 31.2 pg (26.0-34.0); Mean Corpuscular HGB Conc 33.7 g/dL (31.5-36.5); Mean Corpuscular Volume 93 fL (80-100); Mean Platelet Volume 9.6 fL (9.1-12.4); NEUTROPHILS ABSOLUTE AUTO 9.74 K/mm3 (1.96-9.15); NEUTROPHILS PERCENT AUTO 68 % (41-73); Platelet Count 735 K/mm3 (150-400); RDW Coefficient Variation 15.8 % (11.7-14.2); RDW Standard Deviation 53.6 fL (35.1-46.3); Red Blood Cell Count 2.85 M/mm3 (4.30-5.90); White Blood Cell Count 14.24 K/mm3 (4.00-11.30)
[2024-12-02 06:44] LABS: Albumin/Globulin Ratio 0.4 (0.8-1.8); Bilirubin, Total 0.2 mg/dL (0.1-1.0); Bun/Creatinine Ratio 20.9 (12.0-20.0); Calcium, Blood 8.2 mg/dL (8.5-10.1); Creatinine, Blood 0.48 mg/dL (0.60-1.20); Globulin, Blood 5.7 g/dL (2.2-4.0); Potassium, Blood 4.2 mmol/L (3.5-5.5); Total Protein, Blood 7.7 g/dL (6.4-8.2)
[2024-12-02 07:58] VITALS: BP 111/66
[2024-12-02] MEDS ORDERED: Lidocaine 4% 1 Patch TOP SCH (09:00)
[2024-12-02] MEDS ORDERED: FentaNYL Citrate 50 MCG/ML 2 ML Injection IV PRN (11:55)
[2024-12-02] MEDS ORDERED: Gabapentin 400 MG Cap PO SCH (14:00)
[2024-12-02 15:12] VITALS: BP 127/79
--- NOTE | 2024-12-02 16:32 | NUR ---
SHIFT SUMMARY PT REFUSED REPOSITIONS MOST THE DAY. PT DID AGREE TO BE REPOSITIONED AFTER A BM AND FULL BED CHANGE. PT MEDICATED FREQUENTLY T/O SHIFT FOR PAIN, SEE EMAR. REGARDLESS OF PAIN MEDS, PT STATES HIS PAIN LEVEL IS A 9/10. NO OTHER ACUTE CHANGES IN ASSESSMENT AT THIS TIME. DRESSING TO L ELBOW IS INTACT & CLEAN. CALL LIGHT IN REACH. DENIES OTHER NEEDS BESIDES PAIN MEDS. CALL LIGHT IN REACH.
[2024-12-02 19:21] VITALS: BP 115/71
[2024-12-02] MEDS ORDERED: Naproxen 250 MG TAB PO SCH (21:00)
[2024-12-03 04:57] VITALS: BP 112/72
[2024-12-03 08:05] VITALS: BP 100/64
[2024-12-03] MEDS ORDERED: FentaNYL Citrate 50 MCG/ML 2 ML Injection IV PRN (13:05)
[2024-12-03] MEDS ORDERED: Gabapentin 300 MG Cap PO SCH (14:00)
[2024-12-03 16:23] VITALS: BP 112/72
--- NOTE | 2024-12-03 18:53 | NUR ---
SHIFT SUMMARY PT REFUSED REPOSITIONS FROM STAFF T/O THE DAY. PT STATES HE IS REPOSITIONING SELF IN BED. PT ONLY LAYING TO HIS R SIDE, HOWEVER. EDUCATED ON THE RISKS WITH LACK OF MOVEMENT. GABAPENTIN INCREASED TODAY AND FENTANYL DOSE DECREASED PER ORDERS. PT STATES HIS PAIN FEELS "A LITTLE BETTER" WITH A RATING OF 8/10. PT REFUSED BED BATH TODAY. NO OTHER ACUTE CHANGES IN ASSESSMENT AT THIS TIME. VS REVIEWED. CALL LIGHT IN REACH. DENIES OTHER NEEDS AT THIS TIME.
[2024-12-03 19:54] VITALS: BP 136/70
[2024-12-04 05:39] VITALS: BP 123/72
--- NOTE | 2024-12-04 08:41 | NUR ---
REFUSALS TO TURN/REPOSITION JOJO IS FAVORING LAYING ON HIS LEFT SIDE AND REPORTS THAT LAYING ON HIS BACK OR HIS RIGHT SIDE IS TOO PAINFUL. HE HAS BEEN EDUCATED ON THE IMPORTANCE OF TURNING AND THE RISKS OF PRESSURE INJURY BUT POLITELY DECLINED THE Q2 OFFERS TO HELP HIM TURN. HOWEVER, PT IS WILLING TO MAKE FREQUENT SMALL ADJUSTMENTS AND SHIFT HIS WEIGHT THROUGHOUT THE NIGHT.
[2024-12-04 08:55] VITALS: BP 122/73
[2024-12-04 16:13] VITALS: BP 130/82
--- NOTE | 2024-12-04 16:56 | NUR ---
SHIFT SUMMARY PT AOX4, COOPERATIVE, ABLE TO MAKE NEEDS KNOWN. PT HAS NOT BEEN OOB FOR SHIFT PER PT REQUEST. PT REFUSES TURNS, PT REPORTS IT IS "MORE COMFORTABLE ON HIS LEFT SIDE". PERFORMED WOUND CARE THIS SHIFT PER WOUND CARE ORDERS. COMPLAINTS OF PAIN, MEDICATING PER EMAR. HERE FOR ANTIBIOTICS FOR LEFT ELBOW CELLULITIS. BED IN LOWEST POSITION, CALL LIGHT WITHIN REACH.
[2024-12-04 20:30] VITALS: BP 136/67
[2024-12-05 05:21] VITALS: BP 121/68
[2024-12-05 07:49] VITALS: BP 134/75
[2024-12-05 14:56] VITALS: BP 141/83
--- NOTE | 2024-12-05 17:57 | NUR ---
ASSUMED CARE OF PT PT A/O X 4 PLEASENT AND COOPERATIVE, ON ISOLATION FOR MRSA IN THE WOUND. PT CONT ASKING FOR PAIN MEDICATION, PT ON OCCASION IS MOANING AND AT TIMES LAUGHING BUT REQUESTS MEDICATION WHENEVER I ENTER ROOM. WOUND TO LEFT ELBOW WAS UNWARPPED AND OPEN TO AIR. WOUND IS CDI WITH SUTURE WELL APPROX. CALL LIGHT WITHIN REACH AND ABLE TO MAKE NEEDS KNOWN
[2024-12-05] MEDS ORDERED: Naproxen 500 MG Tab PO SCH (21:00)
[2024-12-06 02:03] VITALS: BP 134/74
[2024-12-06 07:33] VITALS: BP 127/79
[2024-12-06] MEDS ORDERED: OxyCODONE HCL 5 MG TAB PO PRN (11:55)
[2024-12-06 15:54] VITALS: BP 149/80
[2024-12-06] MEDS ORDERED: OxyCODONE HCL 15 MG TAB.SR.12H PO SCH (16:00)
--- NOTE | 2024-12-06 17:43 | NUR ---
shift summary pt cont level of care. pt noted to be a&o x4 and remains bedrest at this time. pt cont with iv abt. physician noted to change pt pain regimen see mar for details.
[2024-12-06 19:53] VITALS: BP 117/78
[2024-12-07 04:02] VITALS: BP 133/81
[2024-12-07 07:48] VITALS: BP 125/77
[2024-12-07 15:39] VITALS: BP 120/63
--- NOTE | 2024-12-07 18:30 | NUR ---
SHIFT SUMMARY PT CONT LEVEL OF CARE WITH NO ACUTE CHANGES NOTED. PT CONT WITH IV ABT. PT ONLY RECEIVED PRN PAIN MEDICATION X1 THIS SHIFT.
[2024-12-07 19:08] VITALS: BP 122/66
[2024-12-08 03:10] VITALS: BP 103/65
[2024-12-08 07:19] VITALS: BP 151/64
[2024-12-08 15:59] VITALS: BP 129/64
--- NOTE | 2024-12-08 17:24 | NUR ---
SHIFT SUMMARY PT CONT LEVEL OF CARE WITH NO ACUTE CHANGES NOTED.
[2024-12-08 19:04] VITALS: BP 99/85
[2024-12-09 03:38] VITALS: BP 121/60
[2024-12-09 07:23] VITALS: BP 116/69
[2024-12-09 15:45] VITALS: BP 110/68
--- NOTE | 2024-12-09 18:38 | NUR ---
SHIFT SUMMARY PT CONT LEVEL OF CARE WITH NO ACUTE CHANGES NOTED.
[2024-12-09 20:06] VITALS: BP 140/75
[2024-12-10 02:23] VITALS: BP 130/77
[2024-12-10 07:46] VITALS: BP 123/66
[2024-12-10 15:36] VITALS: BP 116/72
[2024-12-10] MEDS ORDERED: OxyCODONE HCL 20 MG TABCR PO SCH (16:00)
--- NOTE | 2024-12-10 17:14 | NUR ---
SHIFT NOTE: PT A/OX4 ABLE TO MAKE HIS NEEDS KNOWN. IV ABX GIVEN PER EMAR. PT REPORTS PAIN T/O DAY MEDICATED PER EMAR. HE REFUSES NURSING STAFF TO ACCESS SKIN. PT REPOSITIONS HIMSELF IN BED, DENIES NEEDS. HE USES THE URNIAL AT BEDSIDE, NO BM THIS SHIFT. HE REFUSES BOWEL CARE. CARE CONTINUES
[2024-12-10 19:53] VITALS: BP 108/67
[2024-12-11 02:25] VITALS: BP 105/59
--- NOTE | 2024-12-11 04:42 | NUR ---
PT A&O X4, VS WNL, VOIDS USING URINAL, REMAINS BEDREST THIS SHIFT. DENIES PAIN, STILL RECIEVING OXYCONTIN EVERY 12HRS THIS IS HELPING. PT KEEPING ELBOW ELEVATED ON PILLOWS, NO DRESSING PRESENT PER PT. REMAINS ON IVABX. USES DESINEX INDEPENDENTLY, HAS NICODERM PATCH AND LIDODERM PATCH. REFUSED SCD'S THIS SHIFT. PO INTAKE WNL, AND URINAL AT BEDSIDE FOR OUPUT. PLAN FOR SNF, AWAITING APPROVAL D/T [facility] ABX.
[2024-12-11] MEDS ORDERED: OxyCODONE HCL 10 MG TABCR PO SCH (08:00)
[2024-12-11 08:01] VITALS: BP 98/64
--- NOTE | 2024-12-11 16:10 | NUR ---
SHIFT REPORT CLIENT IS O&O X 4. VS WNL, CLIENT REMAINS ON IV ABX. GIVEN OXYCODONE 5MG PRN X 1 THIS REPORTING PERIOD. CLIENT PRIMARILY LEAVES ONTO HIS LEFT SIDE WITH HIS ELBOW PROPPED ON A PILLOW. WOUND TO LEFT ELBOW HAD SCANT SEROUS DRAINAGE IN AM. CLIENT DECLINED A DRESSING. BED RAILS AT HEAD OF BED ARE UP AND BED IS LOWEST POSITION FOR SAFETY. CALL LIGHT IS WITHIN REACH
[2024-12-11 16:19] VITALS: BP 116/69
[2024-12-11 19:34] VITALS: BP 124/70
[2024-12-12 04:41] VITALS: BP 125/73
--- NOTE | 2024-12-12 05:49 | NUR ---
SHIFT SUMMARY PT ADMITTED FOR LEFT ELBO OSTEOMYLITUS. PT HAS POWER GLIDE DOROTHY AND IV RIGHT FOREARM. PT STATES IS A CONTINUIOUS 9 OF 10 PAIN. PT USES URINAL. PT DECLINES DVT S IS ON ROOM AIR, NO TELE, AND NS INFUSION ONLY. PT HAS LOWER BACK DRESSING. PLAN IS FOR PLACEMENT BUT DIFFICULT WITH DETENTION ABX PLAN. PT S BED IS IN LOW POSITION, CALL LIGHT WITHIN REACH, AND RAILS ARE TIMES
[2024-12-12 07:11] VITALS: BP 122/76
[2024-12-12] MEDS ORDERED: OxyCODONE HCL 15 MG TAB.SR.12H PO SCH (14:00)
--- NOTE | 2024-12-12 16:24 | NUR ---
SHIFT SUMMARY CLIENT IS A&O X 4. RECIEVED OXICODONE 5MG PRN X 2 THIS SHIFT. REMAINS ON IV ABX. DC IV ACCESS IN RIGHT AC. DRESSING AND CAP ON POWERGLIDE IN RIGHT UPPER ARM REPLACED. ALL IV LINES REPLACED. CONTACT ENTERIC PRECAUTIONS IN PLACE. RESTING WITH LEFT ELBOW ON PILLOW. SCANT SEROUR DRAINAGE NOTED THROUGHOUT SHIFT. DECLINED DRESSING. BEDRAILS AT HEAD OF BED UP X 2 AND BED IN LOWEST POSITION FOR SAFETY. CALL LIGHT WITHIN REACH.
[2024-12-12 20:48] VITALS: BP 131/76
[2024-12-13 03:25] VITALS: BP 125/99
[2024-12-13 07:35] VITALS: BP 126/67
[2024-12-13 15:55] VITALS: BP 121/79
--- NOTE | 2024-12-13 17:59 | NUR ---
SHIFT SUMMARY: NO ACUTE EVENTS, PT A&Ox4, PLEASANT MOOD. PT ON BEDREST, USES URINAL INDEPENDENTLY, FEEDS HIMSELF, AND TURNS HIMSELF FREQUENTLY. PT REPORTS CONSISTENT PAIN 8/10 THROUGHOUT THE DAY. TREATED PAIN WITH SCHEDULED MEDS PER THE E-NOV AND WITH PRN TYLENOL THIS AFTERNOON. PT REPORTED PAIN 7/10 UPON REASSESSMENT AND WAS ABLE TO SLEEP IN THE AFTERNOON. PT HAS NOT REQUIRED OXYGEN. PT HAS GOOD APPETITE AND STATES HE DOES NOT LIKE ENSURE SHAKES. PT ALSO STATES THAT HE SOMETIMES HAS DIFFICULTY SWALLOWING PILLS, BUT HAD NO TROUBLE WITH THIS TODAY. CALL LIGHT IS NEAR.
[2024-12-13 20:33] VITALS: BP 123/74
--- NOTE | 2024-12-14 06:28 | NUR ---
SHIFT SUMM: PT IS A 64 YO FULL CODE WHO WAS ADMITTED FOR OSTEOMYELITIS OF THE LUMBAR SPINE. PT IS BEDREST AND USES THE URINAL AT BEDSIDE. PT IS A&OX4 AND WILL CALL TO MAKE NEEDS KNOWN. PT HAS A WOUND ON LEFT ELBOW WITH A NEW DRESSING THIS SHIFT AND WOUND CARE GIVEN. PT HAS ENJOYED MANY SNACKS SUCH ICE CREAM TONIGHT AND HAS MOSTLY RELAXED. PT'S PAIN HAS BEEN CONTROLLED (SEE EMAR). I HAVE BED ALARM SET FOR SAFETY.
[2024-12-14 07:39] VITALS: BP 143/80
[2024-12-14 15:48] VITALS: BP 123/78
[2024-12-14 19:28] VITALS: BP 134/62
--- NOTE | 2024-12-14 19:35 | NUR ---
SHIFT SUMMARY PATIENT IN BED THIS SHIFT. [address] LISA BARNARD. C/O PAIN 8-05/14 MOST OF SHIFT, MEDICATED PER MAR WITH PRN AND SCHEDULED DOSES. A/O X4. TOLERATING IV ABX WELL.
--- NOTE | 2024-12-15 03:03 | NUR ---
SHIFT SUMM: PT IS HAVING A RELAXING SHIFT SLEEPING AND WATCHING TV W/CALL LIGHT IN REACH.PT WILL CALL TO MAKE NEEDS KNOWN. PT HAD LIDOCAINE PATCH REMOVED AND HAS BEEN MEDICATED PER EMAR. PT LEFT ELBOW WOUND TO DRAIN FOR A WHILE AND THEN ASKED ME TO WRAP ELBOW AND DO WOUND CARE ON ELBOW. PT USES URINAL AT BEDSIDE AND CALLS TO USE BED MINA FOR BM'S. PT HAS A DOROTHY PG THAT HAS WORKED WELL FOR ANTIBIOTICS. PT HAS BED ALARM SET AND CALL LIGHT IN REACH.
[2024-12-15 04:49] VITALS: BP 113/63
[2024-12-15 08:22] VITALS: BP 122/71
[2024-12-15 15:59] VITALS: BP 133/67
--- NOTE | 2024-12-15 18:16 | NUR ---
SHIFT SUMMARY NO CHANGE TO PATIENT CONDITION. TOLERATING IV ABX WELL. CONTINUES TO RATE PAIN 8-9/10 DESPITE MEDICATION AND NON-PHARM INTERVENTIONS. NO BM, USING URINAL IN BED. ABLE TO MAKE NEEDS KNOWN. CALL LIGHT IN REACH, CARES ONGOING.
[2024-12-15 20:44] VITALS: BP 131/85
--- NOTE | 2024-12-16 04:11 | NUR ---
ENERGY ENGINEER SUMMARY: PT A&O X4, MAKES NEEDS KNOWN. NO ACUTE DISRESS / CHANGES NOTED T/O SHIFT. PT MEDICATED T/O SHIFT FOR CONSISTENT PAIN LEVEL OF 7-9 TO BACK AND L ELBOW. NO ADVERSE SIDE EFFECTS TO IB ABX. PT ON BED REST AT THIS TIME. PT ABLE TO DO SOME BED MOBILITY ON HIS OWN. BED IN LOWEST POSITION. CALL LIGHT IN REACH. CARES ONGOING ORDERED.
[2024-12-16 05:35] VITALS: BP 132/76
[2024-12-16 07:30] VITALS: BP 119/61
[2024-12-16 16:21] VITALS: BP 115/75
--- NOTE | 2024-12-16 19:50 | NUR ---
SUMMARY NO ACUTE EVENTS TODAY. PAIN MANAGED WITH SCHEDULED PAIN MEDS. IV ANTIBIOTICS BEING ADMINISTERED PER ORDERS. PATIENT DID NOT WANT ME TO WRAP ARM. REPLACED BANADGE AND CLEANSED ARM.
[2024-12-16 20:54] VITALS: BP 110/61
--- NOTE | 2024-12-17 04:29 | NUR ---
TIRE MAN SUMMARY: PT A&O X4, MAKES NEEDS KNOWN. NO ACUTE DISTRESS / CHANGES NOTED T/O SHIFT. NO ADVERSE SIDE EFFECTS TO IB ABX. PT'S PAIN CONTROLLED WELL WITH SCHEDULED PAIN MEDS T/O SHIFT. PT ON BED REST AT THIS TIME. PT ABLE TO DO SOME BED MOBILITY ON HIS OWN. BED IN LOWEST POSITION. CALL LIGHT IN REACH. CARES ONGOING ORDERED.
[2024-12-17 04:56] VITALS: BP 122/77
[2024-12-17 07:30] VITALS: BP 111/59
[2024-12-17 09:03] LABS: Hematocrit 26.3 % (37.0-53.0); Hemoglobin 8.8 g/dL (13.5-17.5); Mean Corpuscular HGB 30.7 pg (26.0-34.0); Mean Corpuscular HGB Conc 33.5 g/dL (31.5-36.5); Mean Corpuscular Volume 92 fL (80-100); Mean Platelet Volume 9.2 fL (9.1-12.4); Platelet Count 666 K/mm3 (150-400); RDW Coefficient Variation 15.3 % (11.7-14.2); RDW Standard Deviation 51.3 fL (35.1-46.3); Red Blood Cell Count 2.87 M/mm3 (4.30-5.90); White Blood Cell Count 12.16 K/mm3 (4.00-11.30)
[2024-12-17 09:27] LABS: Bun/Creatinine Ratio 25.6 (12.0-20.0); Calcium, Blood 8.6 mg/dL (8.5-10.1); Creatinine, Blood 0.43 mg/dL (0.60-1.20); Potassium, Blood 4.4 mmol/L (3.5-5.5)
[2024-12-17 15:45] VITALS: BP 121/63
--- NOTE | 2024-12-17 16:11 | NUR ---
Spiritual care visit contucted. The patient is lying in bed and alert. He tells me about his 4 sons and where they live, about his that "went missing" over a year ago and about his many medical issues. He shares about his Mosque brunilda, and how he has found strength in God's forgiveness and dom. He tells about his attendence at [facility] and that he enjoyed the kindness that he received from the eligibility specialist and the people. I reinforced helpful attitudes and practices and provided therapeutic listening and prayer. He showed signs of greater peace. I will continue to remain available to patient and family.
[2024-12-17 20:41] VITALS: BP 131/68
[2024-12-18 02:17] VITALS: BP 132/72
--- NOTE | 2024-12-18 06:36 | NUR ---
DIRECTOR OF KIDS SUMMARY: PT A&O X4, MAKES NEEDS KNOWN. NO ACUTE DISTRESS / CHANGES NOTED T/O SHIFT. NO ADVERSE SIDE EFFECTS TO IV ABX. PT ON BED REST AT THIS TIME. PT ABLE TO DO SOME BED MOBILITY ON HIS OWN. L ELBOW DRESSING C/D/I. MEDICATED FOR PAIN WITH PRN MEDS PER EMAR ORDERS; MILDLY EFFECTIVE. BED IN LOWEST POSITION. CALL LIGHT IN REACH. CARES ONGOING ORDERED.
[2024-12-18 07:29] VITALS: BP 131/75
--- NOTE | 2024-12-18 16:46 | NUR ---
Spiritual care visit conducted. The patient is lying in bed and resting but easily awakens when I enter the room. He talks at length about his medical problems and is tearful as he mentions that a doctor had told him that he has about 3 to 4 yrs to live because of the shape his pancreas is in. We talk about ways to end well, to make a difference and use this last part of his life well. I provided therapeutic listening and prayer. The patient responded well and showed signs of increased peace.
--- NOTE | 2024-12-18 20:10 | NUR ---
SHIFT SUMMARY- PT ALERT AND ORIENTED. PT IN BED ON BED REST D/T PAIN. PT IS ON IV ABX FOR SEVERAL MORE WEEKS. PER CARE MANAGEMENT NOTES THEY HAVE INS AUTH, THE PLAN IS FOR THE PT TO DC TO [facility] TOMORROW MORNING TO CONTINUE LONG-TERM ABX THERAPY IV. PT HAS A NEW PG IN THE DOROTHY THAT FLUSHES AND DRAWS WELL. PT IS AWARE OF THE DC PLAN AND IS HAPPY TO BE LEAVING SO SOON. PT HAS A NEW DRESSING ON THE LEFT ELBOW, THE DRAINAGE IS SO COPIOUS IT CAN NOT BE LEFT ZOILA. PT IN BED, CALL LIGHT IN REACH NO S&S OF DISTRESS NOTED.
[2024-12-18 20:22] VITALS: BP 127/83
[2024-12-19 02:57] VITALS: BP 122/55
[2024-12-19 07:06] LABS: Hematocrit 26.1 % (37.0-53.0); Hemoglobin 8.8 g/dL (13.5-17.5); Mean Corpuscular HGB 30.2 pg (26.0-34.0); Mean Corpuscular HGB Conc 33.7 g/dL (31.5-36.5); Mean Corpuscular Volume 90 fL (80-100); Platelet Count 634 K/mm3 (150-400); RDW Coefficient Variation 15.3 % (11.7-14.2); Red Blood Cell Count 2.91 M/mm3 (4.30-5.90); White Blood Cell Count 10.78 K/mm3 (4.00-11.30)
[2024-12-19 07:08] VITALS: BP 119/62
[2024-12-19 07:23] LABS: Bun/Creatinine Ratio 22.2 (12.0-20.0); Calcium, Blood 8.8 mg/dL (8.5-10.1); Creatinine, Blood 0.41 mg/dL (0.60-1.20); Potassium, Blood 4.2 mmol/L (3.5-5.5)
--- NOTE | 2024-12-19 07:47 | NUR ---
SHIFT SUMMARY AT START OF SHIFT, PT LYING IN BED. HE IS IN A GOOD MOOD TODAY, ALTHOUGH IN PAIN. PT MEDICATED PER EMAR. PT EXCITED TO BE GOING HOME IN AM. PT HAS BEEN PLEASANT AND COOPERATIVE WITH HIS CARE. HE HAS BEEN GETTING SNACKS AND DRINKS THROUGH NIGHT, WHEN STAFF AVAILABLE TO GET THEM FOR HIM. PT MEDICATED FOR PAIN Q6HR.
--- NOTE | 2024-12-19 11:57 | NUR ---
DISCHARGE NOTE- PT WAS DISCHAREGED TO [facility] FOR CONTINUED ABX Tx. PT WAS TAKEN VIA GURNEY TRANSPORT TO [facility]. DOROTHY UGARTE WAS SL PRIOR TO DISCHARGE. PT HAD A HARD COPT SCRIPT IN THE PACKET FOR HIS PAIN MEDICATION. PT WAS PROVIDED WITH NEW PANTS AND SHIRT FROM THE HOSPITAL. HE WAS ASSISTED TO DRESS. DRESSING WAS AGIN SOILED AND WAS CHANGED PRIOR TO PT DISCHARGE. TELEPHONE REPORT WAS CALLED TO [facility] RN. NO S&S OF DISTRESS AT THE TIME OF DISCHARGE.
== END 2024-12-19 10:47 | DRG 853 ==
LOC: ER 14:12 → MEDS 22:22
PROVIDERS: Family Medicine; Internal Medicine; Nurse Practitioner Acute Care; Orthopaedic Surgery Sports Medicine; Student in an Organized Health Care Education/Training Program; ADMIT Student in an Organized Health Care Education/Training Program
PROC: 0PD Upper Bones, Extraction (ICD-10-PCS; 2024-11-14)
PROC: 3E03329 Introduction of Other Anti-infective into Peripheral Vein, Percutaneous Approach (ICD-10-PCS; 2024-11-14)
PROC: 0JBH0ZZ Excision of Left Lower Arm Subcutaneous Tissue and Fascia, Open Approach (ICD-10-PCS; principal; 2024-11-21 14:30)
DX: A41.02 Sepsis due to Methicillin resistant Staphylococcus aureus (principal); E43 Unspecified severe protein-calorie malnutrition; E87.1 Hypo-osmolality and hyponatremia; L02.414 Cutaneous abscess of left upper limb; L03.114 Cellulitis of left upper limb; M86.8X2 Other osteomyelitis, upper arm; M46.26 Osteomyelitis of vertebra, lumbar region; M00.822 Arthritis due to other bacteria, left elbow; Z59.00 Homelessness unspecified; G89.29 Other chronic pain; F17.210 Nicotine dependence, cigarettes, uncomplicated; F15.10 Other stimulant abuse, uncomplicated; I10 Essential (primary) hypertension; F10.20 Alcohol dependence, uncomplicated; J44.9 Chronic obstructive pulmonary disease, unspecified; E86.0 Dehydration; F12.10 Cannabis abuse, uncomplicated; M43.8X4 Other specified deforming dorsopathies, thoracic region; M46.46 Discitis, unspecified, lumbar region; D73.3 Abscess of spleen; Z79.899 Other long term (current) drug therapy; Z98.890 Other specified postprocedural states; Z79.2 Long term (current) use of antibiotics; Z87.81 Personal history of (healed) traumatic fracture; Z79.51 Long term (current) use of inhaled steroids; Z68.25 Body mass index [BMI] 25.0-25.9, adult; Z28.21 Immunization not carried out because of patient refusal
CPT/HCPCS: 36415; 71046; 73080; 73201; 74177; 80048; 80053; 80202; 82550; 83605; 83735; 84484; 85025; 85027; 85610; 85651; 86140; 87040; 87070; 87075; 87077; 87147; 87186; 87205; 87507; 93005; 93010; 93306; 94760; 96361; 96365; 96366; 96367; 96375; 99285-25; A9270; C1751; J0330; J0690; J0692; J0696; J1100; J1171; J1200; J1885; J2371; J2405; J2704; J2765; J3010; J3360; J3370; J7030; J7050; J7120; Q9967

== ENCOUNTER 2025-03-28 08:02 | Emergency (ER) | payer OTHER ==
[~2025-03-28] VITALS: Ht 170.2 cm; Wt 59.0 kg
[2025-03-28] MEDS ORDERED: Morphine Sulfate 4 MG/1 ML Injection IV ONE ×3 (09:20→13:55)
[2025-03-28] MEDS ORDERED: Lidocaine 4% 1 Patch TOP ONE (09:20)
[2025-03-28] MEDS ORDERED: OXYC5 PO (09:51)
[2025-03-28] MEDS ORDERED: FENTANYL1 EAC3 TOP (09:51)
[2025-03-28 11:33] VITALS: BP 150/81
== END 2025-03-28 15:26 | disposition left against medical advice (07) ==
LOC: ER 08:02
DX: S22.039A Unspecified fracture of third thoracic vertebra, initial encounter for closed fracture (principal); S22.069A Unspecified fracture of T7-T8 vertebra, initial encounter for closed fracture; M54.50 Low back pain, unspecified; F17.210 Nicotine dependence, cigarettes, uncomplicated; I10 Essential (primary) hypertension; Z90.81 Acquired absence of spleen; W07.XXXA Fall from chair, initial encounter
CPT/HCPCS: 72070; 96374; 96376; 99284-25; A9270; J2270